=== PATIENT | female | born 1960 | race Caucasian/White ===

== ENCOUNTER → 2017-09-26 10:50 | Outpatient (POV) | payer MEDICARE, SELFPAY | PROVIDERS: Visit Provider Internal Medicine | DX: Z00.00 Encounter for general adult medical examination without abnormal findings (principal) ==

== ENCOUNTER 2017-10-19 01:12 | Observation (INO) | payer MEDICARE, SELFPAY ==
[2017-10-19] VITALS (16 sets, daily range): BP systolic 95–118; BP diastolic 50–74; PULSE 71–130; RESP 18–28; TEMP 36.4–37.9; O2SAT 2–95; BMI 14.4; BMI 14.8
--- NOTE | 2017-10-19 01:31 | XR_ITS ---
XR chest portable HISTORY: ITS.REASON: cough ORDERING PHYSICIAN: Tono He MD PATIENT AGE: 57 years COMPARISON: 12/26/2016 FINDINGS: COPD with chronic changes. Normal heart size. There are increased markings in the right lower lobe which may be due to underlying atelectasis or infiltrate. Upright PA and lateral suggested for further evaluation. No acute bony anomalies. IMPRESSION: COPD with some increased markings in the right lower lobe which may be due to vascular crowding, atelectasis, or developing infiltrate with superimposed chronic change.
[2017-10-19 02:33] LABS: Basophils % 0.5 % (0.1-2.0); Eosinophils % 0.4 % (0.1-12.0); Hematocrit 44.7 % (37.0-47.0); Lymphocytes # 1.1 K/mm3 (0.7-4.5); Lymphocytes % 14.5 K/mm3 (10-50); Mean Corpuscular HGB Conc 33.5 g/dL (31.8-35.4); Mean Corpuscular Hemoglobin 31.9 pg (27.0-31.2); Mean Platelet Volume 8.4 fl (7.4-10.4); Monocytes # 0.4 K/mm3 (0.1-1.0); Monocytes % 5.5 % (1.7-9.3); Neutrophils % 79.2 % (37.0-80.0); Platelet Count 146 K/mm3 (142-424); White Blood Count 7.5 K/mm3 (4.8-10.8)
[2017-10-19 02:43] LABS: Lactic Acid 1.2 mmol/L (0.4-2.0)
[2017-10-19 02:52] LABS: Alanine Aminotransferase 22 U/L (12-78); Albumin Level 3.9 gm/dL (3.4-5.0); Albumin/Globulin Ratio 1.1 (1.1-1.8); Alkaline Phosphatase 94 U/L (46-116); Anion Gap 13.3 mEq/L (5-15); Aspartate Amino Transferase 18 U/L (15-37); Bilirubin,Total 0.4 mg/dL (0.2-1.0); Blood Urea Nitrogen 5 mg/dL (7-18); CKMB Relative Index 1.3 U/L (0-4.0); Calcium 8.3 mg/dL (8.5-10.1); Carbon Dioxide 26 mmol/L (21.0-32.0); Chloride 102 mmol/L (98-107); Creatine Kinase 142 U/L (26-192); Creatine Kinase MB 1.8 mg/ml (0.0-3.6); Creatinine Clearance Estimated 61 mL/min (0-300); Creatinine,Serum 0.71 mg/dL (0.55-1.02); Estimated Glomerular Filt Rate 85 ml/min (>60); GFR (African American) 102 ML/MIN (>60); Globulin 3.6 gm/dl (1.3-3.2); Glucose 134 mg/dL (74-106); Potassium 3.3 mmoL/L (3.5-5.1); Sodium 138 mmol/L (136-145); Total Protein,Serum 7.5 gm/dL (6.4-8.2); Troponin I < 0.02 ng/ml (0.00-0.06)
--- NOTE | 2017-10-19 04:32 | HMH.EDSOB ---
ED Disposition Clinical Impression: Acute exacerbation of chronic obstructive airways disease, Bronchitis Disposition: Admitted as Observation Condition on Discharge: Good Instructions: DI for Chronic Obstructive Pulmonary Disease Additional Instructions: see pcp for follow up - Critical Care Critical Care Time: No Attestation: On 10/19/17, the high probability of a clinically significant, sudden or life threatening deterioration of the following system(s) required my full and direct attention, intervention and personal management. The time I documented below is in addition to time spent performing reported procedures but includes the following listed in this critical care notation. Medical Decision Making - Medical Records Medical records reviewed: Yes: I reviewed the patient's medical records. Vital Signs: 10/19/17 01:16 10/19/17 01:44 10/19/17 03:37 Temperature 99.5 F 99.3 F Temperature Source Oral Oral Pulse Rate 120 H Pulse Rate [Right Radial] 128 H 105 H Respiratory Rate 22 18 Blood Pressure [Right Arm] 116/72 102/67 Blood Pressure Mean [Right Arm] 86 78 Blood Pressure Source [Right Arm] Automatic Cuff Automatic Cuff Blood Pressure Position [Right Arm] Sitting Supine 02 Sat by Pulse Oximetry 90 L 94 L Oxygen Delivery Method Room Air Nasal Cannula Oxygen Flow Rate (LPM) 2 - Lab Data Lab results reviewed: Yes: I reviewed the patient's lab results. Lab Results 10/19/17 02:00: WBC 7.5, RBC 4.70, Hgb 15.0, Hct 44.7, MCV 95.0, MCH 31.9 H, MCHC 33.5, RDW 12.0, Plt Count 146, MPV 8.4, Neut % (Auto) 79.2, Lymph % (Auto) 14.5, [place] % (Auto) 5.5, Eos % (Auto) 0.4, Baso % (Auto) 0.5, Neut # (Auto) 6.0, Lymph # (Auto) 1.1, [place] # (Auto) 0.4, Eos # (Auto) 0.0, Baso # (Auto) 0.0 10/19/17 02:00: Sodium 138, Potassium 3.3 L, Chloride 102, Carbon Dioxide 26, Anion Gap 13.3, BUN 5 L, Creatinine 0.71, Estimated Creat Clear 61, Estimated GFR 85, Est GFR ( Amer) 102, Glucose 134 H, Calcium 8.3 L, Total Bilirubin 0.4, AST 18, ALT 22, Alkaline Phosphatase 94, Total Creatine Kinase 142, CK-MB (CK-2) 1.8, CK-MB (CK-2) Rel Index 1.3, Troponin I < 0.02, Total Protein 7.5, Albumin 3.9, Globulin 3.6 H, Albumin/Globulin Ratio 1.1 10/19/17 02:00: Lactic Acid 1.2 Result diagrams: 10/19/17 02:00 10/19/17 02:00 Orders (Tests/Meds): ED MEDICATIONS Discontinued Medications Generic Name Dose Route Start Last Admin Trade Name Freq PRN Reason Stop Dose Admin Albuterol/Ipratropium 3 ml 10/19/17 01:32 10/19/17 01:42 Duoneb 3ml Neb IH 10/19/17 01:33 3 ml ONCE ONE Administration ORDERS Category Date Time Status CXR --portable [XR chest portable] Stat Exams 10/19/17 01:31 Taken Blood Culture Stat Micro 10/19/17 02:00 Received Sputum Culture & Gram Stain Stat Micro 10/19/17 03:24 Received EKG Request [ECG Request by /Mehdi] Stat Y 10/19/17 01:30 Ordered - Radiology Data #1 Image(s): Chest Image Reviewed: Yes I reviewed the patient's radiology image Preliminary Findings: Abnormal (copd) - ECG Data Tracing #1 I reviewed this ECG and interpreted as documented below: Arrhythmias present: sinus tach Ischemic changes: non-specific ST-T wave changes Tracing #2 I reviewed this ECG and interpreted as documented below: Arrhythmias present: sinus tach Ischemic changes: non-specific ST-T wave changes - Ricky Inquiry Pt receiving controlled substance: No Resp/SOB HPI - General Chief Complaint: Shortness of Breath/Dyspnea Stated Complaint: difficulty breathing Time Seen by Provider: 10/19/17 01:30 Mode of Arrival: EMS Source of Information: Patient, Relative, Medical Record Limitations: No Limitations Description of Symptoms (Recalled from ER Triage Doc. by RN): Pt reports difficulty breathing since yesterday with a productive cough, and chills. - History of Present Illness sob with prod cough over the last few days MD Complaint: shortness of br
--- NOTE | 2017-10-19 04:35 | ED_ITS ---
ED Disposition Clinical Impression: Acute exacerbation of chronic obstructive airways disease, Bronchitis Disposition: Admitted as Observation Condition on Discharge: Good Instructions: DI for Chronic Obstructive Pulmonary Disease Additional Instructions: see pcp for follow up - Critical Care Critical Care Time: No Attestation: On 10/19/17, the high probability of a clinically significant, sudden or life threatening deterioration of the following system(s) required my full and direct attention, intervention and personal management. The time I documented below is in addition to time spent performing reported procedures but includes the following listed in this critical care notation. Medical Decision Making - Medical Records Medical records reviewed: Yes: I reviewed the patient's medical records. Vital Signs: 10/19/17 01:16 10/19/17 01:44 10/19/17 03:37 Temperature 99.5 F 99.3 F Temperature Source Oral Oral Pulse Rate 120 H Pulse Rate [Right Radial] 128 H 105 H Respiratory Rate 22 18 Blood Pressure [Right Arm] 116/72 102/67 Blood Pressure Mean [Right Arm] 86 78 Blood Pressure Source [Right Arm] Automatic Cuff Automatic Cuff Blood Pressure Position [Right Arm] Sitting Supine 02 Sat by Pulse Oximetry 90 L 94 L Oxygen Delivery Method Room Air Nasal Cannula Oxygen Flow Rate (LPM) 2 - Lab Data Lab results reviewed: Yes: I reviewed the patient's lab results. Lab Results 10/19/17 02:00: WBC 7.5, RBC 4.70, Hgb 15.0, Hct 44.7, MCV 95.0, MCH 31.9 H, MCHC 33.5, RDW 12.0, Plt Count 146, MPV 8.4, Neut % (Auto) 79.2, Lymph % (Auto) 14.5, [place] % (Auto) 5.5, Eos % (Auto) 0.4, Baso % (Auto) 0.5, Neut # (Auto) 6.0 , Lymph # (Auto) 1.1, [place] # (Auto) 0.4, Eos # (Auto) 0.0, Baso # (Auto) 0.0 10/19/17 02:00: Sodium 138, Potassium 3.3 L, Chloride 102, Carbon Dioxide 26, Anion Gap 13.3, BUN 5 L, Creatinine 0.71, Estimated Creat Clear 61, Estimated GFR 85, Est GFR ( Amer) 102, Glucose 134 H, Calcium 8.3 L, Total Bilirubin 0.4, AST 18, ALT 22, Alkaline Phosphatase 94, Total Creatine Kinase 142, CK-MB (CK-2) 1.8, CK-MB (CK-2) Rel Index 1.3, Troponin I < 0.02, Total Protein 7.5, Albumin 3.9, Globulin 3.6 H, Albumin/Globulin Ratio 1.1 10/19/17 02:00: Lactic Acid 1.2 Result diagrams: 10/19/17 02:00 10/19/17 02:00 Orders (Tests/Meds): ED MEDICATIONS Discontinued Medications Generic Name Dose Route Start Last Admin Trade Name Freq PRN Reason Stop Dose Admin Albuterol/Ipratropium 3 ml 10/19/17 01:32 10/19/17 01:42 Duoneb 3ml Neb IH 10/19/17 01:33 3 ml ONCE ONE Administration ORDERS Category Date Time Status CXR --portable [XR chest portable] Stat Exams 10/19/17 01:31 Taken Blood Culture Stat Micro 10/19/17 02:00 Received Sputum Culture & Gram Stain Stat Micro 10/19/17 03:24 Received EKG Request [ECG Request by /Mehdi] Stat Y 10/19/17 01:30 Ordered - Radiology Data #1 Image(s): Chest Image Reviewed: Yes I reviewed the patient's radiology image Preliminary Findings: Abnormal (copd) - ECG Data Tracing #1 I reviewed this ECG and interpreted as documented below: Arrhythmias present: sinus tach Ischemic changes: non-specific ST-T wave changes Tracing #2 I reviewed this ECG and interpreted as documented below: Arrhythmias presen
[2017-10-19 05:50] LABS: Magnesium 1.8 mg/dL (1.4-2.2)
--- NOTE | 2017-10-19 06:47 | CA_ITS ---
PROCEDURE: 2-D M-mode and color Doppler study INDICATIONS FOR THE TEST: Chest pain X COPDX Heart Murmur Tobacco SmokingEX Palpitations Fatigue Syncope Edema Hypertension Diabetes Mellitus Rheumatic Fever SOBXDOEXObesity Hyperlipidemia Family History HD Additional History LIMITED EXAM SECONDARY TO COPD PATIENT INFORMATION HEIGHT: 69 WEIGHT:100 GENDER: Female B/P:116/72 2-D/M-MODE INTERPRETATION: 2-D MEASUREMENTS OBSERVED VALUES IN CMS Right Ventricular Dimension (RVDd) 2.0 Interventricular Septum (Thickness)(IVsd) .6 Left Ventricular Internal Dimensions(LVIDd) 3.2 Left Ventricular Posterior Wall (Thickness)(LVPWd) .8 Aortic Root 3.1 Aortic Cusp Separation 1.5 Left Atrial Dimensions (LAD) 2.6 2D 1. Technically difficult study because of the patient's factor and poor acoustic windows. 2. The left atrium is normal size, left ventricle is normal size, there is no concentric left ventricular hypertrophy, visually estimated ejection fraction 55% with no obvious regional wall motion abnormality. 3. The right atrium and right ventricle are normal size and contractility. 3. The aortic, mitral and tricuspid valve are grossly normal. 4. The pulmonic valve is poorly visualized. 5. No significant pericardial effusion noted. DOPPLER INTERROGATION: Doppler interrogation of the aortic, mitral and tricuspid valvular presence of trace mitral and tricuspid regurgitation, tricuspid and jet velocity is insufficient for calculation of the right ventricular systolic pressure. Diastolic parameters are inconclusive. CONCLUSION: 1. Technically difficult study because of the patient's factor and poor acoustic windows 2. Left atrium is normal size, there is no concentric left ventricular hypertrophy, visually estimated ejection fraction 55% with no obvious regional wall motion abnormality, diastolic parameters are inconclusive. 3. Trace mitral and tricuspid regurgitation 4. No significant pericardial effusion noted.
--- NOTE | 2017-10-19 07:21 | PC.NURSE ---
Received report from Elly Zavala RN
--- NOTE | 2017-10-19 07:58 | P.CONPHA_ITS ---
[facility] Pharmacy VTE Monitoring - Patient Demographics Admission date: 10/19/17 Report Date: 10/19/17 Time: 07:57 Allergies/Adverse Reactions: Patient Allergies No Known Allergies Allergy (Verified 09/13/17 14:20) Height: 1.75 m Weight: 45.416 kg Patient Problems: Current Active Problems Acute exacerbation of chronic obstructive airways disease (Acute) Bronchitis (Acute) - VTE Risk Labs: VTE Related Lab Results Hgb 15.0 g/dL (12.2-16.2) 10/19/17 02:00 Hct 44.7 % (37.0-47.0) 10/19/17 02:00 Plt Count 146 K/mm3 (142-424) 10/19/17 02:00 BUN 5 mg/dL (7-18) L 10/19/17 02:00 Creatinine 0.71 mg/dL (0.55-1.02) 10/19/17 02:00 Estimated Creat Clear 61 mL/min (0-300) 10/19/17 02:00 VTE Score: 4 VTE Risk Level: Low Risk - Prophylaxis VTE Prophylaxis Ordered?: Yes Types of VTE Prophylaxis: TEDS Knee High Location of Applied Device: Bilateral Lower Extremeties - VTE Diagnosis Confirmed Treatment or plan recommended: Continue Current Treatment
[2017-10-19 08:20] LABS: Troponin I < 0.02 ng/ml (0.00-0.06)
--- NOTE | 2017-10-19 09:26 | HMH.HP ---
*Admission Date: 10/19/17 *Chief complaint: sob *History of present illness: 57 yr old female presents to ed with c/o of sob, weakness, dizziness and fatgue. Pt admitted for weakness and dizziness and low o2 sat at home 89%. [facility] History I have reviewed the patient's past medical history: Yes Medical History: Reports:: Chronic Obstructive Pulmonary Disease (COPD) Other Medical History: Reports: Arthritis, Glaucoma Laterality Cases: Bilateral: Total Knee Replacement Other Surgeries: Yes: Colonoscopy, , Hysterectomy-Total Amputation: No Fractures: No - *Social History Educational Level: Attended High School Smoking Status: Current every day smoker Tobacco Type: cigarettes # Packs/Day (cigarettes): 1 Alcohol Intake: never Substance Use Type: denies use Occupational Status: unemployed - Psychiatric History Expresses thoughts of harming self/others: None Suicide Plan Description: No Plan *Family Hx:: Hypertension, Heart Attack Review of Systems - Constitutional Reports body ache(s), Reports malaise - Eyes Denies pain - ENT Denies change in voice - *Cardiovascular Denies leg sores - *Respiratory Reports chest congestion, Reports cough, Reports shortness of breath - *Gastrointestinal Denies change in bowel habits - *Genitourinary Denies abnormal vaginal bleeding - *Musculoskeletal Denies stiffness - Integumentary/Breasts Denies rash - *Neurologic Denies seizure-like activity - Psychiatric Denies confusion - Endocrine Denies increased thirst - Hematologic/Lymphatic Denies enlarged lymph nodes - Allergic/Immunologic Denies tongue swelling Meds Home Medications Medication Instructions Recorded Confirmed Type alendronate 70 mg tablet 70 mg PO QWEEK 09/13/17 10/19/17 History gabapentin 800 mg tablet 800 mg PO QID tab 09/13/17 10/19/17 History hydrocodone 7.5 mg-acetaminophen 1 tab PO Q8H tab 09/13/17 10/19/17 History 325 mg tablet latanoprost 0.005 % eye drops 1 drp OPHTHALMIC QDAY 09/13/17 10/19/17 History multivit with min-folic 1 tab PO DAILY 09/13/17 10/19/17 History acid-lutein 400 mcg-250 mcg chewable tablet tizanidine 4 mg capsule 4 mg PO BID cap 09/13/17 10/19/17 History trazodone 300 mg tablet 300 mg PO QHS 09/13/17 10/19/17 History Escitalopram Oxalate 10 mg PO DAILY 10/19/17 10/19/17 History Omeprazole [Omeprazole 40mg 40 mg PO DAILY 10/19/17 10/19/17 History Capsule] clonazePAM [Klonopin] 0.5 mg PO BID 10/19/17 10/19/17 History Allergies Allergy/AdvReac Type Severity Reaction Status Date / Time No Known Allergies Allergy Verified 09/13/17 14:20 Exam Vital signs and Labs for Last 24 Hours: Temp Pulse Resp BP Pulse Ox 98.2 F 96 H 20 95/61 95 10/19/17 07:41 10/19/17 07:41 10/19/17 07:41 10/19/17 07:41 10/19/17 07:41 Laboratory Results - last 24 hr 10/19/17 07:30: Troponin I < 0.02 I & O for Last 24 hours: Intake & Output 10/16/17 10/17/17 10/18/17 10/19/17 11:59 11:59 11:59 11:59 Weight 100 lb 2 oz - Constitutional no acute distress - *Routine HEENT Exam Head: Present: normocephalic Eye: Present: PERRL ENT: Present: mucous membranes moist - *Routine Neck Exam Present: supple, full ROM - *Routine Respiratory Exam Present: decreased breath sounds, diminished air movement - *Routine Cardiovascular Exam Present: RRR - *Routine Abdominal Exam Present: soft, normoactive bowel sounds - *Routine Skin Exam Present: intact - *Routine Neurological Exam Present: alert, oriented X3, CN II-XII intact - Routine Psychiatric Exam Present: normal affect, normal thought process H&P: Result - Labs Labs: Cardiac Enzymes 10/19/17 Range/Units 07:30 Troponin I < 0.02 (0.00-0.06) ng/ml Assessment and Plan - Assessment and plan all Dx Assessment and Plan for all problems:: try to wean o2
--- NOTE | 2017-10-19 09:47 | PC.NURSE ---
Pt ambulated with this nurse down hallway (approx 200' total length). Upon return to room pt's O2 saturation was 95% on RA. Pt was able to recover her heart rate within 5 minutes. Pt with noted dyspnea requiring mouth breathing.
[2017-10-19 10:43] LABS: Adenovirus,PCR Not Detected (NotDetected); Bordetella Pertussis Not Detected (NotDetected); Chlamydophila Pneumoniae, PCR Not Detected (NotDetected); Coronavirus 229E Not Detected (NotDetected); Coronavirus NL63 Not Detected (NotDetected); Coronavirus OC43 Not Detected (NotDetected); Coronovirus HKU1,PCR Not Detected (NotDetected); Human Metapneumovirus Not Detected (NotDetected); Influenza A, PCR Not Detected (NotDetected); Influenza AH1, 2009 Not Detected (NotDetected); Influenza AH1, PCR Not Detected (NotDetected); Influenza AH3,PCR Not Detected (NotDetected); Influenza B, PCR Not Detected (NotDetected); Mycoplasma Pneumoniae, PCR Not Detected (NotDected); Parainfluenza 1, PCR Not Detected (NotDetected); Parainfluenza 2, PCR Not Detected (NotDetected); Parainfluenza 3, PCR Not Detected (NotDetected); Parainfluenza 4, PCR Not Detected (NotDetected); Respiratory Syncytial Virus Not Detected (NotDetected); Rhinovirus/Enterovirus Not Detected (NotDetected)
--- NOTE | 2017-10-19 15:34 | PC.NURSE ---
57 year old female admitted on 10/19/17 with diagnosis of acute exacerbation of COPD, bronchitis. Pt is A&Ox4. VSS. Afebrile. Heart rate reg. Lungs CTA with fine crackles noted LLL. O2 sats on RA range from 90 - 95% at rest this shift. Pt has ALICEA upon ambulation > 20'. Abd soft and nontender /c active BS x4 quads. Last reported BM 10/18/17. Pt denies difficulty /c urination. (L) AC IV infusing 0.9% NaCl @ 75ml/hr /s difficulty. No s/s of infiltration @ insertion site. Knee high ALVA hose in place to BLE. Pt reports that she has chronic pain and sees a pain management physician in [facility]. Will continue to monitor pt's status.
--- NOTE | 2017-10-19 16:25 | PC.NURSE ---
Pt resting quietly in bed with eyes closed. O2 saturation on RA is 87%. Applied O2 @ 1LPM via NC. O2 sat increased to 92% on O2 @ 1 LPM.
--- NOTE | 2017-10-19 18:58 | PC.NURSE ---
Report given to Allyssa Szymanski RN
[2017-10-20 00:15] VITALS: PULSE 65
[2017-10-20 04:00] VITALS: BP 97/59; PULSE 74; RESP 20; TEMP 36.6; O2SAT 95
--- NOTE | 2017-10-20 04:50 | PC.NURSE ---
AFTER NIGHT MEDS GIVEN, PT SLEPT WELL TIL 0430 THIS AM. PT SETTING UP IN BED THIS AM DRINKING COFFEE. OXYGEN ON AT 1L PER NC. RESPIRATIONS EVEN AND UNLABORED. NO COMPLAINTS OF SOB.
[2017-10-20 06:30] VITALS: PULSE 68; PULSE 71; O2SAT 88
[2017-10-20 07:51] VITALS: BP 92/47; PULSE 110; RESP 20; TEMP 36.7; O2SAT 94
--- NOTE | 2017-10-20 09:12 | PC.NURSE ---
PATIENT WILL NEED A ROLLATER , V/S A CANE DUE TO EXTREME COPD , WEAKNESS AND GAIT/ MOBILITY.
--- NOTE | 2017-10-20 09:23 | HMH.DCSUM ---
General - General Admission date: 10/19/17 Discharge date: 10/20/17 HPI HPI: 57 yr old female presents to ed with c/o of sob, weakness, dizziness and fatgue. Pt admitted for weakness and dizziness and low o2 sat at home 89%. Objective Vital signs: Temp Pulse Resp BP Pulse Ox 98.1 F 110 H 20 92/47 94 L 10/20/17 07:51 10/20/17 07:51 10/20/17 07:51 10/20/17 07:51 10/20/17 07:51 no acute distress, thin - *Routine HEENT Exam Head: Present: normocephalic Eye: Present: PERRL ENT: Present: mucous membranes moist - *Routine Neck Exam Present: supple, full ROM - *Routine Respiratory Exam Present: wheezes - *Routine Cardiovascular Exam Present: RRR - *Routine Abdominal Exam Present: soft, normoactive bowel sounds - *Routine Extremities Exam Present: full ROM - *Routine Skin Exam Present: intact - *Routine Neurological Exam Present: alert, oriented X3, CN II-XII intact - Routine Psychiatric Exam Present: normal affect, normal thought process Hospital Course Hospital Course: chest x ray: IMPRESSION: COPD with some increased markings in the right lower lobe which may be due to vascular crowding, atelectasis, or developing infiltrate with superimposed chronic change. echo:CONCLUSION: 1. Technically difficult study because of the patient's factor and poor acoustic windows 2. Left atrium is normal size, there is no concentric left ventricular hypertrophy, visually estimated ejection fraction 55% with no obvious regional wall motion abnormality, diastolic parameters are inconclusive. 3. Trace mitral and tricuspid regurgitation 4. No significant pericardial effusion noted Patient states she feels better today we will order outpatient region and add COPD preventative medicine Results Labs on day of discharge: Labs from last 24 hours 10/19/17 09:25 Chlamy pneumoniae PCR Not detected Adenovirus (PCR) Not detected B.parapertussis DNA PCR Not detected Coronavirus OC43 (PCR) Not detected Coronavirus HKU1 (PCR) Not detected Coronavirus 229E (PCR) Not detected Coronavirus NL63 (PCR) Not detected Human Metapneumovir PCR Not detected Influenza A (H1) PCR Not detected Influ A (H1N1/09) PCR Not detected Influenza A (H3) PCR Not detected Influenza Type A (PCR) Not detected Influenza Type B (PCR) Not detected M. pneumoniae (PCR) Not detected Parainfluenza 1 (PCR) Not detected Parainfluenza 2 (PCR) Not detected Parainfluenza 3 (PCR) Not detected Parainfluenza 4 (PCR) Not detected RSV (PCR) Not detected Entero/Rhino (PCR) Not detected Discharge Plan - Patient Discharge Instructions ACTIVITY: Continue current activity DIET: continue same diet Patient Instructions: Chronic Obstructive Pulmonary Disease, Chronic Obstructive Pulmonary Disease (Alternative Therapy) - Follow up Plan Follow up with: Tono He MD [Emergency Provider] - 1 week Disposition: Home, Self-Fpc Medications: Home Medications Medication Instructions Recorded Confirmed Type alendronate 70 mg tablet 70 mg PO QWEEK 09/13/17 10/19/17 History gabapentin 800 mg tablet 800 mg PO QID tab 09/13/17 10/19/17 History hydrocodone 7.5 mg-acetaminophen 1 tab PO Q8H tab 09/13/17 10/19/17 History 325 mg tablet latanoprost 0.005 % eye drops 1 drp OPHTHALMIC QDAY 09/13/17 10/19/17 History multivit with min-folic 1 tab PO DAILY 09/13/17 10/19/17 History acid-lutein 400 mcg-250 mcg chewable tablet tizanidine 4 mg capsule 4 mg PO BID cap 09/13/17 10/19/17 History trazodone 300 mg tablet 300 mg PO QHS 09/13/17 10/19/17 History Escitalopram Oxalate 10 mg PO DAILY 10/19/17 10/19/17 History Omeprazole [Omeprazole 40mg 40 mg PO DAILY 10/19/17 10/19/17 History Capsule] clonazePAM [Klonopin] 0.5 mg PO BID 10/19/17 10/19/17 History Prescriptions/Medication Reconciliation: New Azithromycin [Zithromax 250mg tab] 250 mg PO DIRECTED #6 tab Fluticasone/Marquita
--- NOTE | 2017-10-20 11:04 | SW/DCPLANNER ---
Order has been placed for patient to have rollator and home o2. Patient information was faxed to [facility] for DME and oxygen. I have spoke with Vale from [facility]...she has stated that patient has been set up on payment plans (due to having rolling walker in the past 5 years under [facility]), and patients home o2 will be delivered to [facility] at [facility]. I have also called and left a voice message for return phone call regarding setting up [employer] Whe[employer] for this patient. Patient will discharge home this afternoon.
== END 2017-10-20 11:45 | disposition home or self-care (01) ==
LOC: ER 04:43 → 2ND 05:29
PROVIDERS: Nurse Practitioner Family; Admitting Provider Emergency Medicine; Emergency Provider Emergency Medicine; Family Provider Emergency Medicine; Visit Provider Emergency Medicine
DX: J44.1 Chronic obstructive pulmonary disease with (acute) exacerbation (principal); R53.1 Weakness; R06.09 Other forms of dyspnea; J20.9 Acute bronchitis, unspecified; J44.0 Chronic obstructive pulmonary disease with (acute) lower respiratory infection
CPT/HCPCS: 71045; 80053; 82550; 82553; 83605; 83735; 84484; 85025; 87040; 87070; 87077; 87205; 87486; 87581; 87633; 87798; 93005; 93041; 93306; 94640; 94761; 96365; 96367; 96375; 99285; G0378; J0456

== ENCOUNTER → 2017-10-27 10:34 | Outpatient (CLI) | payer MEDICARE, SELFPAY ==
[2017-10-27 17:43] LABS: Amphetamine/Metha Screen,Urine Negative ng/mL (<1000); Barbiturates Screen,Urine Negative ng/mL (<200); Benzodiazepines Screen,Urine Negative ng/mL (200); Cannabinoid Screen,Urine Negative ng/mL (<50); Cocaine Screen,Urine Negative ng/g (<300); Methadone Screen,Urine Negative ng/mL (<300); Opiate Screen,Urine Positive ng/mL (<300); Phencyclidine Screen,Urine Negative ng/mL (<25)
== END ==
PROVIDERS: Visit Provider Emergency Medicine
DX: Z79.899 Other long term (current) drug therapy (principal)
CPT/HCPCS: 80305

== ENCOUNTER → 2017-11-24 10:09 | Outpatient (REF) | payer MEDICARE, SELFPAY ==
[2017-11-25 11:16] LABS: Amphetamine/Metha Screen,Urine Negative ng/mL (<1000); Barbiturates Screen,Urine Negative ng/mL (<200); Benzodiazepines Screen,Urine Negative ng/mL (200); Cannabinoid Screen,Urine Negative ng/mL (<50); Cocaine Screen,Urine Negative ng/g (<300); Methadone Screen,Urine Negative ng/mL (<300); Opiate Screen,Urine Positive ng/mL (<300); Phencyclidine Screen,Urine Negative ng/mL (<25)
== END ==
LOC: LAB 10:09
PROVIDERS: Visit Provider Emergency Medicine
DX: Z79.899 Other long term (current) drug therapy (principal)
CPT/HCPCS: 80305

== ENCOUNTER → 2017-12-11 11:01 | Outpatient (REF) | payer MEDICARE, SELFPAY ==
[2017-12-11 14:09] LABS: Amphetamine/Metha Screen,Urine Negative ng/mL (<1000); Barbiturates Screen,Urine Negative ng/mL (<200); Benzodiazepines Screen,Urine Negative ng/mL (200); Cannabinoid Screen,Urine Negative ng/mL (<50); Cocaine Screen,Urine Negative ng/g (<300); Methadone Screen,Urine Negative ng/mL (<300); Opiate Screen,Urine Negative ng/mL (<300); Phencyclidine Screen,Urine Negative ng/mL (<25)
== END ==
LOC: LAB 11:01
PROVIDERS: Visit Provider Emergency Medicine
DX: Z79.899 Other long term (current) drug therapy (principal)
CPT/HCPCS: 80305

== ENCOUNTER → 2017-12-27 09:07 | Outpatient (REF) | payer MEDICARE, SELFPAY ==
[2017-12-27 13:55] LABS: Amphetamine/Metha Screen,Urine Negative ng/mL (<1000); Barbiturates Screen,Urine Negative ng/mL (<200); Benzodiazepines Screen,Urine Negative ng/mL (200); Cannabinoid Screen,Urine Negative ng/mL (<50); Cocaine Screen,Urine Negative ng/g (<300); Methadone Screen,Urine Negative ng/mL (<300); Opiate Screen,Urine Negative ng/mL (<300); Phencyclidine Screen,Urine Negative ng/mL (<25)
== END ==
LOC: LAB 09:07
PROVIDERS: Visit Provider Emergency Medicine
DX: Z79.899 Other long term (current) drug therapy (principal)
CPT/HCPCS: 80305

== ENCOUNTER → 2018-01-11 12:56 | Outpatient (CLI) | payer MEDICARE, SELFPAY ==
--- NOTE | 2018-01-11 13:00 | XR_ITS ---
XR knee LT 2V HISTORY: Left knee pain ITS.REASON: S/P LT TKA having pain ORDERING PHYSICIAN: Shade Huynh MD PATIENT AGE: 57 years COMPARISON: 04/13/2017 FINDINGS: Status post total arthroplasty with good alignment of the prosthesis. No evidence of dislocation or prosthesis loosening. No lytic or blastic change. IMPRESSION: Status post total knee arthroplasty with no radiographic evidence of complication
--- NOTE | 2018-01-11 13:00 | XR_ITS ---
XR tibia fibula LT 2V CLINICAL INDICATION: ITS.REASON: Left knee pain ORDERING PHYSICIAN: Shade Huynh MD PATIENT AGE: 57 years COMPARISON: 04/13/2017 FINDINGS: There has been prior total knee arthroplasty. The tibial component of the prosthesis has an unremarkable appearance. The mid and distal aspect of the tibia and fibula are unremarkable. IMPRESSION: Status post total knee arthroplasty otherwise negative left tib-fib
== END ==
PROVIDERS: PCP Emergency Medicine; Visit Provider Orthopaedic Surgery
DX: Z96.652 Presence of left artificial knee joint (principal)
CPT/HCPCS: 73560; 73590

== ENCOUNTER → 2018-05-14 16:27 | Outpatient (CLI) | payer MEDICARE, SELFPAY | PROVIDERS: PCP Nurse Practitioner Family; Visit Provider Nurse Practitioner Family | DX: I95.9 Hypotension, unspecified (principal) | CPT/HCPCS: 93225; 93226 ==

== ENCOUNTER → 2018-05-16 16:11 | Outpatient (CLI) | payer MEDICARE, SELFPAY ==
[2018-05-16 16:31] LABS: Basophils % 0.3 % (0.1-2.0); Eosinophils # 0.1 K/mm3 (0.0-0.4); Eosinophils % 0.9 % (0.1-12.0); Hematocrit 42.6 % (37.0-47.0); Hemoglobin 13.9 g/dL (12.2-16.2); Lymphocytes # 2.9 K/mm3 (0.7-4.5); Lymphocytes % 25.9 K/mm3 (10-50); Mean Corpuscular HGB Conc 32.7 g/dL (31.8-35.4); Mean Corpuscular Hemoglobin 31.5 pg (27.0-31.2); Mean Corpuscular Volume 96.3 fl (81-99); Monocytes # 0.6 K/mm3 (0.1-1.0); Monocytes % 5.5 % (1.7-9.3); Neutrophils # 7.5 K/mm3 (1.8-7.8); Neutrophils % 67.3 % (37.0-80.0); Platelet Count 231 K/mm3 (142-424); Red Blood Count 4.42 M/mm3 (4.20-5.40); Red Cell Distribution Width 12.1 % (11.5-17.5); White Blood Count 11.1 K/mm3 (4.8-10.8)
[2018-05-16 18:59] LABS: Free T4 (Free Thyroxine) 0.95 ng/dl (0.76-1.46); Thyroid Stimulating Hormone 1.78 uIU/ml (0.358-3.740)
[2018-05-18 16:14] LABS: Peripheral Smear Review Scanned Result
[2018-05-21 05:19] LABS: Folate >20.0 ng/mL (>3.0); Vitamin B12 980 pg/mL (232-1245)
== END ==
PROVIDERS: PCP Physician Assistant; Visit Provider Nurse Practitioner Family
DX: R53.83 Other fatigue (principal)
CPT/HCPCS: 36415; 82607; 82652; 82746; 84439; 84443; 85025; 85060

== ENCOUNTER → 2018-06-05 06:48 | Outpatient (CLI) | payer MEDICARE, SELFPAY ==
--- NOTE | 2018-06-05 06:50 | NM_ITS ---
History and Indications: Chest pain, shortness of breath, tobacco use, family history. Procedure: Patient received a 0.4 mg of intravenous Lexiscan, resting heart rate was 77 bpm resting blood pressure 106/68, with Lexiscan maximum heart rate achieved was 112 bpm which is less than 85% of the maximum predicted heart rate and a blood pressure was 114/73. With Lexiscan patient chest pressure and shortness of breath requiring intravenous Aminophyllin to reverse symptoms. Electrocardiogram: Resting electrocardiogram showed sinus rhythm right ventricular conduction delay, with Lexiscan less than 1.[address] segment depression noted from the baseline EKG. The EKG portion of the Lexiscan Myoview is nondiagnostic. Cardiac stress and resting SPECT images: Cardiac stress and resting SPECT images were obtained using technetium 99 Myoview 31.6 mCi at stress and 9.9 mCi at rest. Gated SPECT further analysis of segmental wall motion and calculation of the ejection fraction also done. Cardiac stress and rest SPECT images show uniform myocardial activity without segmental perfusion abnormality, computer derived ejection fraction is 64% with no regional wall motion abnormality, right ventricle is normal size and contractility. Conclusion: 1. The EKG portion of the Lexiscan Myoview is nondiagnostic. 2. No scintigraphic evidence of reversible ischemia seen, computer derived ejection fraction is 64% with no regional wall motion abnormality, right ventricle is normal size and contractility. 3. Normal Lexiscan Myoview study
--- NOTE | 2018-06-05 06:50 | XR_ITS ---
XR chest 2V HISTORY: Chest pain, shortness of breath, smoker ITS.REASON: z ORDERING PHYSICIAN: Inocencio Vargas MD PATIENT AGE: 58 years COMPARISON: 10/19/2017 FINDINGS: Unremarkable cardiovascular structures. Hyperinflation with attenuation of the peripheral pulmonary vessels consistent with COPD. There is evidence of old granulomatous disease. Chronic changes are present in the apices. There is kyphosis of the lower thoracic spine. There is mild pectus deformity IMPRESSION: COPD, no change with no acute finding
--- NOTE | 2018-06-05 07:30 | HMH.ITSHM ---
FLUOXETINE FLUTICASONE ALENDRONATE GABAPENTIN HYDROCO OMEPRAZOLE AMOX/K TRAZODONE TIZANIDINE METHYLPRED CLONAZEPAM AZITHROMYCIN
--- NOTE | 2018-06-05 08:37 | CA_ITS ---
PROCEDURE: 2-D M-mode and color Doppler study INDICATIONS FOR THE TEST: Chest pain X COPDX Heart Murmur Tobacco SmokingX Palpitations Fatigue Syncope Edema Hypertension Diabetes Mellitus Rheumatic Fever SOBXDOEXObesity Hyperlipidemia Family History HD Additional History TDS COPD PATIENT INFORMATION HEIGHT: 69 WEIGHT:110 GENDER: Female B/P:106/66 2-D/M-MODE INTERPRETATION: 2-D MEASUREMENTS OBSERVED VALUES IN CMS Right Ventricular Dimension (RVDd) 2.0 Interventricular Septum (Thickness)(IVsd) .7 Left Ventricular Internal Dimensions(LVIDd) 4.3 Left Ventricular Posterior Wall (Thickness)(LVPWd) .6 Aortic Root 2.4 Aortic Cusp Separation 1.5 Left Atrial Dimensions (LAD) 3.0 2D 1. Left atrium is normal size, left ventricle is normal size, there is no concentric left ventricular hypertrophy, visually estimated ejection fraction of 55% with no regional wall motion abnormality. 2. The right atrium and right ventricle are normal size and contractility. 3. The aortic valve is minimally thickened and fibrosed. 4. The mitral and tricuspid valve are grossly normal. 5. The pulmonic valve is poorly visualized. 6. No significant pericardial effusion noted. DOPPLER INTERROGATION: Doppler interrogation of the aortic, mitral and tricuspid valvular presence of mild mitral and tricuspid regurgitation, tricuspid regurgitation jet velocity is inadequate for calculation of the right ventricular systolic pressure, diastolic parameters are within normal range. CONCLUSION: 1. Normal left ventricular size, preserved left ventricular systolic function, visually estimated ejection fraction of 55% with no regional wall motion abnormality, diastolic parameters are within normal range. 2. Mild mitral and tricuspid regurgitation 3. No significant pericardial effusion noted.
== END ==
PROVIDERS: Family Provider Emergency Medicine; PCP Physician Assistant; Visit Provider Internal Medicine
DX: R06.02 Shortness of breath (principal); R63.4 Abnormal weight loss; Z72.0 Tobacco use
CPT/HCPCS: 71046; 78452; 93017; 93306; A9502; J2785

== ENCOUNTER → 2018-06-06 11:04 | Outpatient (CLI) | payer MEDICARE, SELFPAY ==
[2018-06-06 14:10] LABS: Amphetamine/Metha Screen,Urine Negative ng/mL (<1000); Barbiturates Screen,Urine Negative ng/mL (<200); Benzodiazepines Screen,Urine Negative ng/mL (<200); Cannabinoid Screen,Urine Positive ng/mL (<50); Cocaine Screen,Urine Negative ng/mL (<300); Methadone Screen,Urine Negative ng/mL (<300); Opiate Screen,Urine Positive ng/mL (<300); Phencyclidine Screen,Urine Negative ng/mL (<25)
== END ==
PROVIDERS: Visit Provider Emergency Medicine
DX: Z79.899 Other long term (current) drug therapy (principal)
CPT/HCPCS: 80305

== ENCOUNTER → 2018-06-07 08:06 | Outpatient (REF) | payer MEDICARE, SELFPAY ==
[2018-06-07 10:28] LABS: Blood Urea Nitrogen 11 mg/dL (7-18); Estimated Glomerular Filt Rate 102 ml/min (>60); GFR (African American) 124 ML/MIN (>60)
[2018-06-13 16:24] LABS: Alprazolam Negative (Cutoff=100); Benzodiazepines Positive ng/mL (Cutoff=100); Clonazepam Positive (.); Flurazepam Negative (Cutoff=100); Lorazepam Negative (Cutoff=100); Midazolam Negative (Cutoff=100); Temazepam Negative (Cutoff=100); Triazolam Negative (Cutoff=100)
[2018-06-14 07:10] LABS: Clonazepam Confirm 727 ng/mL (Cutoff=100)
== END ==
LOC: LAB 08:06
PROVIDERS: Internal Medicine; Visit Provider Emergency Medicine
DX: Z79.899 Other long term (current) drug therapy (principal); I20.9 Angina pectoris, unspecified; J44.9 Chronic obstructive pulmonary disease, unspecified; K55.9 Vascular disorder of intestine, unspecified; R06.02 Shortness of breath; R53.83 Other fatigue; R63.0 Anorexia; R63.4 Abnormal weight loss; Z72.0 Tobacco use
CPT/HCPCS: 36415; 80346; 82565; 84520

== ENCOUNTER → 2018-06-07 09:50 | Outpatient (CLI) | payer MEDICARE, SELFPAY ==
--- NOTE | 2018-06-07 10:15 | US_ITS ---
US abd. aorta screening HISTORY: Screening for aortic aneurysm ITS.REASON: z ORDERING PHYSICIAN: Inocencio Vargas MD PATIENT AGE: 58 years Comparison: None FINDINGS: Atheromatous changes involve the abdominal aorta. No evidence of abdominal aortic aneurysm. Proximal common iliacs are unremarkable. Plaque is present in the mid to distal abdominal aorta. There is on minimal ectasia of the mid abdominal aorta. Maximum AP dimension of the abdominal aorta is 1.7 cm. IMPRESSION: Atheromatous changes of the aorta, no evidence of abdominal aortic aneurysm
--- NOTE | 2018-06-07 10:15 | CT_ITS ---
CT angio abdomen CLINICAL INDICATION: Mesenteric ischemia, abdominal pain ITS.REASON: z ORDERING PHYSICIAN: Inocencio Vargas MD PATIENT AGE: 58 years COMPARISON: None TECHNIQUE: Axial images obtained with sagittal and coronal reformats. All CT scans at the facility use one or more dose reduction, viz: automated exposure control, ma/kV adjustment per patient size (including targeted exams where dose is matched to indication, i.e. head), or iterative reconstruction technique. PROCEDURE: Oral Contrast: None IV Contrast: 100 mL [id number]. FINDINGS: Angiographic findings: There is no evidence of aortic aneurysm or dissection. Mild atheromatous changes involving the distal abdominal aorta and proximal iliac vessels. There is minimal ectasia of the infrarenal abdominal aorta at 1.8 cm There is approximate 40-50% stenosis involving the ostium of the celiac artery. The superior mesenteric artery has an unremarkable appearance. The ANDREA is patent. There is high grade stenosis at the ostium of the ANDREA. The renal arteries have an unremarkable appearance. Nonvascular findings: The liver, spleen, adrenal glands, pancreas, and kidneys have an unremarkable appearance. No intestinal obstruction or free air. No obvious abdominal or pelvic mass or adenopathy. No acute bony findings. IMPRESSION: 1. 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 2. High-grade stenosis of the ostium of the ANDREA
== END ==
PROVIDERS: Family Provider Emergency Medicine; PCP Physician Assistant; Visit Provider Internal Medicine
DX: I20.9 Angina pectoris, unspecified (principal); K55.9 Vascular disorder of intestine, unspecified; R06.02 Shortness of breath; R53.83 Other fatigue; R63.0 Anorexia; R63.4 Abnormal weight loss; Z72.0 Tobacco use
CPT/HCPCS: 36415; 74175; 76705; 80346; 82565; 84520; Q9967

== ENCOUNTER → 2018-09-07 13:30 | Outpatient (CLI) | payer MEDICARE, SELFPAY ==
[2018-09-07 18:10] LABS: Barbiturates Screen,Urine Negative ng/mL (<200); Benzodiazepines Screen,Urine Negative ng/mL (<200); Cannabinoid Screen,Urine Negative ng/mL (<50); Cocaine Screen,Urine Negative ng/mL (<300); Methadone Screen,Urine Negative ng/mL (<300); Opiate Screen,Urine Positive ng/mL (<300); Phencyclidine Screen,Urine Negative ng/mL (<25)
[2018-09-07 19:03] LABS: Amphetamine/Metha Screen,Urine Negative ng/mL (<1000)
[2018-09-15 18:10] LABS: Alprazolam Negative (Cutoff=100); Benzodiazepines Positive ng/mL (Cutoff=100); Clonazepam Positive (.); Flurazepam Negative (Cutoff=100); Lorazepam Negative (Cutoff=100); Midazolam Negative (Cutoff=100); Temazepam Negative (Cutoff=100); Triazolam Negative (Cutoff=100)
[2018-09-15 22:47] LABS: Clonazepam Confirm 104 ng/mL (Cutoff=100)
== END ==
PROVIDERS: Visit Provider Emergency Medicine
DX: Z79.899 Other long term (current) drug therapy (principal)
CPT/HCPCS: 80305; 80346

== ENCOUNTER → 2018-12-04 16:32 | Outpatient (CLI) | payer MEDICARE, SELFPAY ==
[2018-12-04 19:14] LABS: Amphetamine/Metha Screen,Urine Negative ng/mL (<1000); Barbiturates Screen,Urine Negative ng/mL (<200); Benzodiazepines Screen,Urine Negative ng/mL (<200); Cannabinoid Screen,Urine Negative ng/mL (<50); Cocaine Screen,Urine Negative ng/mL (<300); Methadone Screen,Urine Negative ng/mL (<300); Opiate Screen,Urine Positive ng/mL (<300); Phencyclidine Screen,Urine Negative ng/mL (<25)
== END ==
PROVIDERS: Visit Provider Emergency Medicine
DX: Z79.899 Other long term (current) drug therapy (principal)
CPT/HCPCS: 80305

== ENCOUNTER → 2018-12-06 10:53 | Outpatient (CLI) | payer MEDICARE, SELFPAY ==
--- NOTE | 2018-12-06 11:16 | XR_ITS ---
XR chest AP HISTORY: COPD. Smoker. Hypertension ITS.REASON: HTN, HX UT ORDERING PHYSICIAN: Tono He MD PATIENT AGE: 58 years Technique: AP portable upright chest COMPARISON: 10/29/2017. FINDINGS: Prominent COPD/emphysematous changes with prominent hyperexpansion Chronic changes bilaterally. We again see mild apical pleural] normal scarring similar to previous study. Slightly more evident on right than left. There is slight additional density at the right base. Slightly triangular density right base but does not obscure the right hemidiaphragm and measures up to 2.2 cm height and wide. Rather abrupt medial margin.Possibly related to overlapping artifact?... There have been been some areas seen at the anterior right lung base on prior CT and chest films previously. Conceivably Current Technique exaggerated or accentuated such due to to overlapping breast and positioning.. . Left lung clear unremarkable. Heart mildly enlarged. Calcified hilar and mediastinal nodes reflecting old granulomatous t disease.. Normal pulmonary vascularity. IMPRESSION Emphysematous changes. Chronic changes Prominent hyperexpansion with Advanced COPD appearance Cardiomegaly suggested particularly for this body habitus no vascular congestion. Triangular density at the right lung base measuring up to 2.2 cm. Nonspecific. Could be related to scarring which is accentuated on today's CXR. Suggest at least. 2 view chest follow-up. To see if this area persists However Low threshold for CT chest or possibly a follow-up screening CT chest would be encouraged in either case
[2018-12-06 12:03] LABS: Basophils # 0.1 K/mm3 (0-0.2); Basophils % 0.5 % (0.1-2.0); Eosinophils # 0.1 K/mm3 (0.0-0.4); Hematocrit 39.8 % (37.0-47.0); Hemoglobin 13.2 g/dL (12.2-16.2); Lymphocytes # 2.6 K/mm3 (0.7-4.5); Mean Corpuscular Hemoglobin 31.1 pg (27.0-31.2); Mean Platelet Volume 7.3 fl (7.4-10.4); Monocytes # 0.5 K/mm3 (0.1-1.0); Monocytes % 5.3 % (1.7-9.3); Neutrophils # 5.8 K/mm3 (1.8-7.8); Neutrophils % 64.2 % (37.0-80.0); Platelet Count 335 K/mm3 (142-424); Red Blood Count 4.23 M/mm3 (4.20-5.40); Red Cell Distribution Width 12.5 % (11.5-17.5); White Blood Count 9.1 K/mm3 (4.8-10.8)
[2018-12-06 12:49] LABS: Erythrocyte Sedimentation Rate 58 mm/hr (0-30)
[2018-12-06 14:45] LABS: Alanine Aminotransferase 17 U/L (12-78); Albumin Level 3.5 gm/dL (3.4-5.0); Albumin/Globulin Ratio 0.9 (1.1-1.8); Alkaline Phosphatase 93 U/L (46-116); Anion Gap 15.9 mEq/L (5-15); Bilirubin,Total 0.6 mg/dL (0.2-1.0); Blood Urea Nitrogen 8 mg/dL (7-18); Calcium 8.9 mg/dL (8.5-10.1); Carbon Dioxide 27 mmol/L (21.0-32.0); Chloride 100 mmol/L (98-107); Creatinine,Serum 0.54 mg/dL (0.55-1.02); Estimated Glomerular Filt Rate 116 ml/min (>60); GFR (African American) 140 ML/MIN (>60); Globulin 3.9 gm/dl (1.3-3.2); Glucose 90 mg/dL (74-106); Lipase 107 u/L (73-393); Sodium 138 mmol/L (136-145); T4 (Thyroxine) 10.5 ug/dl (4.7-13.3); Total Protein,Serum 7.4 gm/dL (6.4-8.2)
[2018-12-06 14:47] LABS: Aspartate Amino Transferase 19 U/L (15-37); Potassium 4.9 mmoL/L (3.5-5.1)
[2018-12-07 09:06] LABS: Cancer Antigen (CA) 125 14.4 U/mL (0.0-38.1)
== END ==
PROVIDERS: PCP Emergency Medicine; Visit Provider Emergency Medicine
DX: R53.83 Other fatigue (principal); Z78.9 Other specified health status; Z79.899 Other long term (current) drug therapy; F32.9 Major depressive disorder, single episode, unspecified; F41.9 Anxiety disorder, unspecified
CPT/HCPCS: 36415; 71045; 80053; 83690; 84436; 84443; 85025; 85651; 86316

== ENCOUNTER → 2018-12-24 14:25 | Outpatient (CLI) | payer MEDICARE, SELFPAY ==
--- NOTE | 2018-12-24 14:29 | CT_ITS ---
CT chest wo con HISTORY: Follow-up abnormal chest x-ray, shortness of air, cough ITS.REASON: weight loss, fatigue ORDERING PHYSICIAN: Tono He MD PATIENT AGE: 58 years COMPARISON: 12/06/2018, 01/09/2017 Technique: Axial images obtained. Sagittal, and coronal reformatted images are also generated and reviewed. All CT scans at the facility use one or more dose reduction, viz: automated exposure control, ma/kV adjustment per patient size (including targeted exams where dose is matched to indication, i.e. head), or iterative reconstruction technique. FINDINGS: There are scattered small nodes within the mediastinum. Calcified mediastinal and hilar lymph nodes are present. Coronary artery calcifications are noted. There is pericardial thickening inferiorly. Hyperinflation with attenuation of the peripheral pulmonary vessels consistent with COPD. There is biapical fibronodular changes as before. New area of nodularity is present in the right upper lobe posteriorly and medially measuring 18 mm with some central lucency which may be due to some central cavitation. Increase in parenchymal opacity is present in the right upper lobe posteriorly and laterally along the major fissure as well as the right middle lobe laterally parallel to the major fissure. Parenchymal opacification is present in the right middle lobe inferiorly which is developed in the interval and is felt to be related to the most recent mention radiographic abnormality. A new parenchymal opacity is present within the lingula medially at 2 cm. Small nodular opacities are present in the lingula laterally which developed in the interval with a tree-in-bud pattern. Fibrotic changes are present in the lingula inferiorly. No central obstructing lesion is evident. Upper abdominal images show dense calcification versus a stent within the celiac artery. Degenerative changes are present in the thoracic spine. IMPRESSION: There has been interval development and progression of multiple parenchymal opacities in both lungs as described above. Bronchiolitis obliterans with organizing pneumonia, progressive pulmonary fibrotic changes, or atypical pneumonia considered. There is COPD. Mild diffuse bronchial thickening is present. One cannot exclude the possibility of neoplasm at any of these sites. Therefore, follow-up is recommended. Suggest 3 month follow-up initially to confirm short-term stability. Alternatively, PET CT may be of further value. Pulmonology consult may be of further value as well. There is infiltrate within the lingula with tree-in-bud pattern consistent with an area of pneumonia.
== END ==
PROVIDERS: PCP Emergency Medicine; Visit Provider Emergency Medicine
DX: R53.83 Other fatigue (principal); R63.4 Abnormal weight loss
CPT/HCPCS: 71250

== ENCOUNTER → 2019-01-09 11:21 | Outpatient (CLI) | payer MEDICARE, SELFPAY ==
[2019-01-09 11:24] LABS: Adenovirus F 40/41, stool Not Detected (NotDetected); Astrovirus Not Detected (NotDetected); Campylobacter Not Detected (NotDetected); Clostridium Difficile A/B, PCR Not Detected (NotDetected); Cryptosporidium Not Detected (NotDetected); Cyclospora Cayetanesis Not Detected (NotDetected); Entamoeba histolytica Not Detected (NotDetected); Enteroaggregative E coli Not Detected (NotDetected); Enteropathogenic E coli Not Detected (NotDetected); Enterotoxigenic E coli Not Detected (NotDetected); Giardia lamblia Not Detected (NotDetected); Norovirus Not Detected (NotDetected); Plesimonas Shigalloides, PCR Not Detected (NotDetected); Rotavirus A Not Detected (NotDetected); Salmonella, PCR Not Detected (NotDetected); Sapovirus Not Detected (NotDetected); Shiga-like toxin E coli Not Detected (NotDetected); Shigella Enterovasive E coli Not Detected (NotDetected); Vibrio Cholerae Not Detected (NotDetected); Vibrio, PCR Not Detected (NotDetected); Yersinia Entercolitica, PCR Not Detected (NotDetected)
== END ==
PROVIDERS: Visit Provider Emergency Medicine
DX: R19.7 Diarrhea, unspecified (principal)
CPT/HCPCS: 87506

== ENCOUNTER → 2019-01-22 10:52 | Outpatient (CLI) | payer MEDICARE, SELFPAY ==
--- NOTE | 2019-01-22 10:53 | MM_ITS ---
MM Dig screening mamm BI w/CAD ORDERING PHYSICIAN : Tono He MD PATIENT AGE: 58 years GENDER: Female COMPARISON: Only a single previous outside mammogram comparison from June 2014. I feel [facility]. INDICATION: Routine: screening patient does taking female hormones. No new complaints. Family history. 2 Sister with breast cancer TECHNIQUE: Standard CC and MLO images were obtained. R2 CAD reviewed. FINDINGS: Moderately dense mildly heterogeneous breast bilaterally mammography somewhat decreased sensitivity in breast denser character. No dominant or suspicious mass nor suspicious calcifications. Overall architecture is similar No one area greater concern than another. RIGHT BREAST: There is slight increased density at the central right breast retroareolar region. This may be merely due to overlapping shadows along with mild accentuated fibroglandular elements from the exogenous hormones. However would suggest patient return for spot views and ultrasound right breast. Spot view should include CC and MLO view along with a full 90 degree view right breast. With Ultrasound thereafter LEFT BREAST:No new areas of significant concern the exogenous hormones do vary slightly accentuated some of the background fibroglandular elements. Left breast overall with no significant new findings. . follow-up in one year on the left IMPRESSION: Right breast. Slight increased density at the central right breast. Right breast Warrant spot views and ultrasound to further evaluate. However it suspect it may merely reflect summation shadow along with the accentuated fibroglandular elements from exogenous hormones. Left breast no significant new findings. Follow-up in one year. BI-RADS Category: 0 Need Additional Imaging Evaluation RECOMMENDED FOLLOW-UP: IMM - IMMEDIATE FOLLOW-UP RECOMMENDED Right breast Spot views and ultrasound (A letter has been sent to the patient regarding results of the study.)
== END ==
PROVIDERS: PCP Emergency Medicine; Visit Provider Emergency Medicine
DX: Z12.31 Encounter for screening mammogram for malignant neoplasm of breast (principal)
CPT/HCPCS: 77067

== ENCOUNTER → 2019-02-18 13:44 | Outpatient (CLI) | payer MEDICARE, SELFPAY ==
--- NOTE | 2019-02-18 13:45 | US_ITS ---
MM Dig mamm DX unilat RT CAD, US breast RT complete INDICATION: Follow-up asymmetric density ORDERING PHYSICIAN: Tono He MD PATIENT AGE: 59 years COMPARISON: 01/22/2019, 07/04/2014 TECHNIQUE: Spot views of the right breast along with right breast ultrasound FINDINGS: There is very dense breast tissue decreases the sensitivity for mammography. The asymmetric density in the central aspect of the right breast does appear to compress out as fibroglandular tissue. No discrete mass or malignant appearing microcalcification. Right breast ultrasound completely with axilla no sonographic anomalies apparent. There are small nodes in the axilla. IMPRESSION: Asymmetric density is felt to be related to overlapping fibroglandular tissue. Recommend 6 month follow-up in this patient was very dense breast tissue also suggest correlation with physical exam BI-RADS Category: 3 Probably Benign Finding Short Term Follow-up RECOMMENDED FOLLOW-UP: 6M - 6 MONTH FOLLOW-UP (A letter has been sent to the patient regarding results of the study.)
== END ==
PROVIDERS: PCP Emergency Medicine; Visit Provider Emergency Medicine
DX: R92.8 Other abnormal and inconclusive findings on diagnostic imaging of breast (principal)
CPT/HCPCS: 76641; 77065

== ENCOUNTER → 2019-03-04 13:49 | Outpatient (CLI) | payer MEDICARE, SELFPAY ==
[2019-03-04 14:36] LABS: Amphetamine/Metha Screen,Urine Negative ng/mL (<1000); Barbiturates Screen,Urine Negative ng/mL (<200); Benzodiazepines Screen,Urine Negative ng/mL (<200); Cannabinoid Screen,Urine Negative ng/mL (<50); Cocaine Screen,Urine Negative ng/mL (<300); Methadone Screen,Urine Negative ng/mL (<300); Opiate Screen,Urine Positive ng/mL (<300); Phencyclidine Screen,Urine Negative ng/mL (<25)
== END ==
PROVIDERS: Visit Provider Emergency Medicine
DX: Z79.899 Other long term (current) drug therapy (principal)
CPT/HCPCS: 80305

== ENCOUNTER → 2019-05-15 13:35 | Outpatient (CLI) | payer MEDICARE, SELFPAY ==
--- NOTE | 2019-05-15 13:36 | CT_ITS ---
PROCEDURE: CT CHEST WO CON CLINICAL INDICATION: 3 mth f/u Follow-up abnormal chest CT, COPD, COMPARISON: CHESTWO CT chest wo con from 12/24/2018 TECHNIQUE: Axial images obtained with sagittal and coronal reformats. All CT scans at the facility use one or more dose reduction, viz: automated exposure control, ma/kV adjustment per patient size (including targeted exams where dose is matched to indication, i.e. head), or iterative reconstruction technique. FINDINGS: No mediastinal or hilar mass. There is diffuse calcification of mediastinal and left hilar lymph nodes. There are coronary artery calcifications. There diffuse COPD. Diffuse bilateral pulmonary parenchymal opacities are once again noted and do not appear significantly changed. There is 1 spiculated nodule in the right upper lobe laterally which measures 1.3 cm. This is not significantly changed. Increasing parenchymal opacity is present within the right middle lobe anteriorly which has developed since the previous exam with persistent parenchymal opacification in the right middle lobe inferiorly which has slightly improved. The tree-in-bud consolidation in the right middle lobe has shown improvement. Previously noted consolidation in the lingula medially and in the inferior aspect of the lingula has shown improvement. There is diffuse hyperinflation with attenuation of the peripheral pulmonary vessels consistent with COPD. There are degenerative changes in the thoracic spine. There is mild thickening of the pericardium. A vascular stent is present in the celiac artery. IMPRESSION: 1. COPD with scattered areas of scarring. Patchy areas of infiltrate in the right middle lobe and lingula have improved. 2. There remain scattered parenchymal opacities which for the most part are unchanged and may be due to areas of scarring. The most suspicious area is in the right upper lobe however, this does does not appear to be significantly changed and has a flat like appearance on the sagittal images. Long-term follow-up will be needed to assure this is not neoplasm. Alternatively, PET-CT may be of further value. PET/CT suggested if feasible. If that is not performed then, would recommend a six-month CT follow-up Dictated by: Forrest Hayward MD 05/17/2019 05:48 Electronically signed by Forrest Hayward MD in [place] 05/17/2019 05:48
[2019-05-15 14:33] LABS: MANUAL DIFFERENTIAL MANUAL DIFFERENTIAL (MANUAL DIFF)
[2019-05-15 14:59] LABS: Basophils % 0.4 % (0.1-2.0); Eosinophils # 0.1 K/mm3 (0.0-0.4); Eosinophils % 1.1 % (0.1-12.0); Hematocrit 40.6 % (37.0-47.0); Hemoglobin 13.2 g/dL (12.2-16.2); Lymphocytes # 2.4 K/mm3 (0.7-4.5); Lymphocytes % 36.6 % (10-50); Mean Corpuscular HGB Conc 32.4 g/dL (31.8-35.4); Mean Corpuscular Hemoglobin 30.4 pg (27.0-31.2); Mean Corpuscular Volume 93.8 fl (81-99); Monocytes # 0.4 K/mm3 (0.1-1.0); Monocytes % 6.3 % (1.7-9.3); Neutrophils # 3.6 K/mm3 (1.8-7.8); Neutrophils % 55.6 % (37.0-80.0); Platelet Count 239 K/mm3 (142-424); Red Blood Count 4.33 M/mm3 (4.20-5.40); Red Cell Distribution Width 12.7 % (11.5-17.5); White Blood Count 6.5 K/mm3 (4.8-10.8)
[2019-05-15 16:03] LABS: Alanine Aminotransferase 15 U/L (12-78); Albumin Level 3.6 gm/dL (3.4-5.0); Albumin/Globulin Ratio 1.2 (1.1-1.8); Alkaline Phosphatase 91 U/L (46-116); Anion Gap 10.4 mEq/L (5-15); Aspartate Amino Transferase 16 U/L (15-37); Bilirubin,Total 0.3 mg/dL (0.2-1.0); Blood Urea Nitrogen 5 mg/dL (7-18); Calcium 8.8 mg/dL (8.5-10.1); Carbon Dioxide 30 mmol/L (21.0-32.0); Chloride 102 mmol/L (98-107); Creatinine,Serum 0.63 mg/dL (0.55-1.02); Estimated Glomerular Filt Rate 96 ml/min (>60); GFR (African American) 117 ML/MIN (>60); Glucose 84 mg/dL (74-106); Potassium 4.4 mmoL/L (3.5-5.1); Sodium 138 mmol/L (136-145); Thyroid Stimulating Hormone 0.77 uIU/ml (0.358-3.740); Total Protein,Serum 6.6 gm/dL (6.4-8.2)
[2019-05-15 16:49] LABS: Lymphocytes % 34 % (10-50); Monocytes % 5 % (2-9); Neutrophils % 61 % (42-76); Platelet Estimate Normal; RBC Morphology Normal; Total Cells Counted 100
[2019-05-17 11:12] LABS: Hep A Ab, IgM Negative (Negative); Hepatitis B Core Antibody IgM Negative (Negative); Hepatitis B Surface Antigen Negative (Negative)
[2019-05-17 17:11] LABS: Hepatitis C Antibody <0.1 s/co ratio (0.0-0.9)
== END ==
PROVIDERS: PCP Emergency Medicine; Visit Provider Emergency Medicine
DX: J84.89 Other specified interstitial pulmonary diseases (principal); R93.89 Abnormal findings on diagnostic imaging of other specified body structures; E03.9 Hypothyroidism, unspecified; R53.83 Other fatigue; Z20.5 Contact with and (suspected) exposure to viral hepatitis; R68.81 Early satiety
CPT/HCPCS: 36415; 71250; 80053; 80074; 84443; 85007; 85014; 85018; 85048; 85049

== ENCOUNTER → 2019-05-21 10:32 | Outpatient (POV) | payer MEDICARE, SELFPAY | PROVIDERS: Visit Provider Internal Medicine | DX: Z00.00 Encounter for general adult medical examination without abnormal findings (principal) ==

== ENCOUNTER → 2019-07-01 15:47 | Outpatient (POV) | payer MEDICARE, SELFPAY | PROVIDERS: PCP Emergency Medicine; Visit Provider Nurse Practitioner Family | DX: Z00.00 Encounter for general adult medical examination without abnormal findings (principal) ==

== ENCOUNTER → 2019-07-26 06:23 | Outpatient (CLI) | payer MEDICARE, SELFPAY ==
--- NOTE | 2019-07-26 06:24 | CA_ITS ---
APPROVED REPORT EXAM: Comprehensive 2D, Doppler, and color-flow Echocardiogram Vinyl Flooring Installer: Shabana Gracia CRT Ht: 6 ft 9 in Wt: 112lbs BSA: 1.81 BP: 125/86 mmHg Indications: cp,cad, abn ekg, sx clearance 2D Dimensions LVOT 1.66 cm (M/F) 1.5-2.5 M-Mode Dimensions RVDd 1.43 cm (0.9-2.6) LVDd 3.29 cm (3.5-5.7) LVDs 2.16 cm (3.5-5.7) IVSd 0.94 cm (0.6-1.1) PWd 0.87 cm (0.6-1.1) EF (Teich) 64.60% FS 34.30% EDV (Teich) 43.80 mL ESV (Teich) 15.50 mL LV Diastology E/A Ratio 0.81 Mitral Valve MV A Velocity 60.00 (40-130 cm/s) Left Ventricle Left atrium is mildly enlarged, left ventricular hypertrophy, visually estimated ejection fraction 55% with no regional wall motion abnormality, grade 1 diastolic dysfunction seen without tissue Doppler evidence of raise left atrial pressure. Right Ventricle Right atrium and right ventricular normal size and contractility. Aortic Valve Aortic valve is minimally thickened and fibrosed. There is no aortic stenosis aortic insufficiency. Mitral Valve Mitral valve is grossly normal, there is no mitral stenosis, there is mild mitral regurgitation. Tricuspid Valve Tricuspid valve is grossly normal, there is mild tricuspid regurgitation, tricuspid regurgitation jet velocity is inadequate for calculation of the right ventricular systolic pressure. Pulmonic Valve Pulmonic valve is poorly visualized. Great Vessels Aortic root is normal size. Pericardium No significant pericardial effusion noted. Conclusion 1. Mildly enlarged left atrium, normal left ventricular size, mild concentric left ventricular hypertrophy, visually estimated ejection fraction 55% with no regional wall motion abnormality, grade 1 diastolic dysfunction seen without tissue Doppler evidence of raise left atrial pressure. 2. Mild mitral and tricuspid regurgitation. 3. No significant pericardial effusion noted. Electronically signed by : Salvador Shultz, 07/26/2019 15:16:57
--- NOTE | 2019-07-26 06:32 | NM_ITS ---
APPROVED REPORT Exam: Nuclear Stress Test Indication: chest pain, short of breath, fatigue Patient Location: Outpatient Stress Tech: Katt OwenBoom [place] Tech:GO Briggs RT(R)(N) Ht: 5 ft 9 in Wt: 113 lbs Bra Size: 34 a HR: 64 bpm BP: 130/85 mmHg BSA: 1.62 m2 BMI: 16.6 History: chest pain, short of breath, fatigue Procedure: Patient received a 0.4 mg of intravenous Lexiscan, resting heart rate 64 bpm, resting blood pressure 130/85 mmHg, with Lexiscan maximum heart rate achived was 100 bpm which is Less than 85 % of the maximum predicted heart rate and blood pressure was 150/95 mmHg. With Lexiscan, patient denied any complaint of chest pain. Electrocardiogram Resting electro cardiogram showed sinus rhythm, with Lexiscan there is less than 1.[address] segment depression noted from the baseline EKG. The EKG portion of the Lexiscan Myoview is nondiagnostic. Cardiac Stress and Resting SPECT Images: Cardiac Stress and Resting SPECT images were obtained using technetium 99m Myoview 32.3 mCi stress and 10.03 mCi at rest. Gated SPECT with analysis of segmental wall motion and calculation of ejection fraction also done. Cardiac stress and resting SPECT images show mild fixed defect in the anterior wall with normal contractility to SPECT is likely secondary to soft tissue attenuation, no reversible ischemia seen. Computer derived ejection fraction is 64% with no regional wall motion abnormality, right ventricle is normal size and contractility. Conclusion: 1. The EKG portion of the Lexiscan Myoview is nondiagnostic. 2. No scintigraphic evidence of reversible ischemia seen, a mild fixed defect in the anterior wall is likely secondary to soft tissue attenuation. Computer derived ejection fraction is 64% with no regional wall motion abnormality, right ventricle is normal size and contractility. 3. Likely normal Lexiscan Myoview study. Electronically signed by : Salvador Shultz, 07/26/2019 14:54:01
--- NOTE | 2019-07-26 06:32 | CA_ITS ---
APPROVED REPORT Exam: Pharmacologic Technologist: ludmila carlos, Ht: 5 ft 9 in Wt: 113 lbs BSA: 1.62 m2 HR: 64 bpm BP: 130/85 mmHg Rhythm: NSR Indications: CP, SOB Medical History Medications: Levothyroxine,,,,, Metoprolol,,,,, Asa,,,,, Hydrocodone,,,,, Gabapentin,,,,, ClonAZEPAM,,,,, CloPIdogrel,,,,, Tizanidine,,,,, LanTanaprost,,,,, Epi shot,,,,, Allergies: No known drug allergies Cardiac Risk Factors: FHX of CAD, Smoking Stress Test Details Test: LEXISCAN HR Resting HR: 71 bpm Max Heart Rate (APMHR): 160 bpm Max HR Achieved: 101 bpm Target HR (85% APMHR): 136 bpm % of APMHR: 63 Recovery HR: 94 bpm BP Resting BP: 130/85 mmHg Max BP: 150/95 mmHg Recovery BP: 118.0/88.0 mmHg ECG Resting ECG: NSR, Inferior/Lateral NSSTTW Abnormalities Clinical Reason for Termination: Completed Protocol Exercise duration: 04:02 min Highest Stage Achieved: Exercise capacity: 1.0 METs Stress ECG Conclusion Patient had no CP or no Arrhythmias. Less than 1.5mm ST Segment Changes. Non-Diagnostic. Electronically signed by : Salvador Shultz, 07/26/2019 14:51:23
--- NOTE | 2019-07-26 10:38 | HMH.ITSHM ---
Current Home Medications as stated by this patient Monica Munoz or underwriting service representative. [] tizanidine timolol metoprolol levothyroxine gabapentin asa trazodone
== END ==
PROVIDERS: PCP Emergency Medicine; Visit Provider Urology
DX: F41.9 Anxiety disorder, unspecified (principal); I25.10 Atherosclerotic heart disease of native coronary artery without angina pectoris; I77.4 Celiac artery compression syndrome; R06.02 Shortness of breath; R07.9 Chest pain, unspecified; R53.83 Other fatigue
CPT/HCPCS: 78452; 93017; 93306; A9502; J2785

== ENCOUNTER 2020-09-03 10:47 | Emergency (ER) | payer MEDICARE, SELFPAY ==
[2020-09-03 11:00] VITALS: BP 122/71; PULSE 102; RESP 16; TEMP 36.2; O2SAT 95; BMI 17.7
--- NOTE | 2020-09-03 11:00 | XR_ITS ---
PROCEDURE: XR CHEST PORTABLE Referring Doctor: Elva Saldaña Patient Age:60Y CLINICAL HISTORY: productive cough, COVID testing COMPARISON: CR CXR1VP XR chest portable from 10/19/2017 CR CXR2V XR chest 2V from 06/05/2018 CR CXR2 XR chest AP from 12/06/[address] CHEST WO CON from 05/15/2019 FINDINGS: AP portable CXR Single-view. Slightly higher contrast technique used today accentuates markings somewhat compared to the previous study Underlying COPD emphysematous changes Increased density at the lateral left lung base but I have suspect this reflects a new infiltrate along with scarring. This probable pneumonic infiltrate lateral left lung base, partially obscuring the left cardiac apex and left heart border.. This change since previous study but there were some areas of minor areas of scarring seen here previously Minimal patchy density at the right CP angle was similar to the 12/06/2018 the and may reflect some scarring related to this region is suggested also on a previous CT 2019 Scarring at the lateral aspect of the right mid lung adjacent to the major fissure was seen on prior studies and again evident today. Bilateral apical pleural and parenchymal scarring again noted similar to previous study. Cardiomegaly. Normal pulmonary vascularity . IMPRESSION: Suggestion of focal infiltrate/pneumonia lateral left lung base Increased density at the lateral left lung base, obscuring the lateral left heart border is seen today. COPD emphysema. Prominent hyperexpansion Favor densities on the right are related to areas of pleural parenchymal scarring-at right CP angle, as well as area along the lateral right mid chest. Favor chronic features but accentuated with today's higher contrast technique Cardiomegaly Dictated by: Benjamin Ramey MD 09/03/2020 12:35 Benjamin Ramey MD in [place] 09/03/2020 12:35
--- NOTE | 2020-09-03 11:02 | PC.NURSE ---
radiology notified of order for portable chest xray
--- NOTE | 2020-09-03 11:16 | HMH.EDUTC ---
[facility] [place]ression: Acute exacerbation of chronic obstructive airways disease Disposition: Home, Self-Care Condition on Discharge: Good Instructions: Chronic Obstructive Pulmonary Disease (Alternative Therapy), Chronic Obstructive Pulmonary Disease, Prednisone, Azithromycin Additional Instructions: ? Start antibiotic today. Be sure to complete entire prescription even if feeling better ? Monitor temp. Tylenol every 4 hours as needed and / or ibuprofen every 6 hours as needed ( As long as your primary care physician has told you that it ok to take both. For fever/aches/pains ER if no less than 101 despite Tylenol or Motrin ? Humidifier/vaporizer or hot steamy shower ? Inhaler every 4-6 hours as needed like we discussed. If unsure how to use it, ask pharmacist to demonstrate how. Should help open airways and improve cough, wheezing, and shortness of breath ? Mucinex during the day for your cough and cough suppressant only at night. Be sure to drink lots of water. Insurance may not cover a prescriptions for mucinex. Might be cheaper to get 400mg tablets and take 2 tablet in the morning, mid-day and evening with lots of water. *Start steroid today. Helps with inflammation therefore, cough and wheezing. Follow directions on the package. Reviewed side effects. Patient reports taking them before. Follow up IMMEDIATELY for new or worsening of symptoms OR no noticeable improvement over the next 48-72 hours. 911 immediately for any life threatening symptoms such as chest pain or difficulty breathing Prescriptions: predniSONE [Deltasone 10mg tablet] 10 mg PO BID 3 Days #6 tab Transmission Status: Received by [facility] Azithromycin [Z-Wiley 250mg Tab] 250 mg PO DIRECTED #6 tab Transmission Status: Received by [facility] Referrals: Tono He MD [Primary Care Provider] - As needed Time of Disposition: 11:44 Medical Decision Making - Ricky Inquiry Pt receiving controlled substance: No Ricky was queried for this patient: No Vital Signs: 09/03/20 11:00 09/03/20 11:53 Temperature 97.1 F L 97.1 F L Temperature Source Oral Pulse Rate 102 H Pulse Rate [Right Brachial] 102 H Respiratory Rate 16 16 Blood Pressure 122/71 Blood Pressure [Right Arm] 122/71 Blood Pressure Mean [Right Arm] 88 Blood Pressure Source [Right Arm] Automatic Cuff Blood Pressure Position [Right Arm] Sitting 02 Sat by Pulse Oximetry 95 Oxygen Delivery Method Room Air Orders (Tests/Meds): ORDERS Category Date Time Status Covid-19 Nasal PCR Sendout P&C Routine Lab 09/03/20 11:00 Received - Radiology Data #1 Image(s): Chest Image Reviewed: Yes I reviewed the patient's radiology image w/the ED provider Discussed with Dr Saba, COPD Medical Decision Narrative: Patient states that she has taken medication before without complications or reactions [facility] [place] - General Stated complaint: sob, cough Time Seen by Provider: 09/03/20 11:16 Mode of Arrival: Ambulatory Source of Information: Patient Limitations: No Limitations Description of Symptoms (Recalled from Triage Doc. by RN): PATIENT C/O SOA, PRODUCTIVE COUGH WITH YELLOW SPUTUM, AND CHEST CONGESTION/TIGHTNESS X 2 WEEKS. REQUESTING COVID TEST HEENT Symptoms (Recalled from RN notes): No Resp Symptoms (Recalled from RN notes): Yes Skin Symptoms (Recalled from RN notes): No MS Symptoms (Recalled from RN notes): No Functional Status (Recalled from RN notes): WNL - History of Present Illness Provider Complaint: Patient state that she hasnt been feeling well on and off for two weeks States that she has had sinus pain and pressure, drainage in the back of her throat, cough, and chest congestion States that she has COPD and sometimes gets pneumonia States that she also wants to get tested for COVID States that she is suppose to be on O2 at home but only uses it when she needs it and has Nebulizer - Related Data Home Medi
[2020-09-03 11:53] VITALS: BP 122/71; PULSE 102; RESP 16; TEMP 36.2; O2SAT 95
[2020-09-04 11:32] LABS: Covid-19 Nasal PCR Sendout P&C NEGATIVE
== END 2020-09-03 11:57 | disposition home or self-care (01) ==
PROVIDERS: Emergency Provider Nurse Practitioner; PCP Emergency Medicine
DX: J44.1 Chronic obstructive pulmonary disease with (acute) exacerbation (principal); K21.9 Gastro-esophageal reflux disease without esophagitis; E03.9 Hypothyroidism, unspecified; I25.10 Atherosclerotic heart disease of native coronary artery without angina pectoris; F41.8 Other specified anxiety disorders; F17.210 Nicotine dependence, cigarettes, uncomplicated
CPT/HCPCS: G0463; 71045; 99202; U0004

== ENCOUNTER → 2020-11-03 17:22 | Outpatient (CLI) | payer MEDICARE, SELFPAY ==
[2020-11-03 18:22] LABS: Basophils # 0.1 K/mm3 (0-0.2); Eosinophils # 0.1 K/mm3 (0.0-0.4); Eosinophils % 1.1 % (0.1-12.0); Hemoglobin 13.8 g/dL (12.2-16.2); Lymphocytes # 2.9 K/mm3 (0.7-4.5); Lymphocytes % 46.8 % (10-50); Mean Corpuscular HGB Conc 32.8 g/dL (31.8-35.4); Mean Corpuscular Hemoglobin 31.2 pg (27.0-31.2); Mean Corpuscular Volume 95.3 fl (81-99); Mean Platelet Volume 8.4 fl (7.4-10.4); Monocytes # 0.3 K/mm3 (0.1-1.0); Monocytes % 5.7 % (1.7-9.3); Neutrophils # 2.8 K/mm3 (1.8-7.8); Neutrophils % 45.4 % (37.0-80.0); Platelet Count 240 K/mm3 (142-424); Red Cell Distribution Width 12.8 % (11.5-17.5); White Blood Count 6.1 K/mm3 (4.8-10.8)
[2020-11-03 18:32] LABS: Alanine Aminotransferase 8 U/L (12-78); Albumin Level 4.4 g/dl (3.5-5.0); Albumin/Globulin Ratio 1.5 (1.1-1.8); Alkaline Phosphatase 73 U/L (38-126); Aspartate Amino Transferase 23 U/L (14-36); Bilirubin,Total 0.8 mg/dl (0.2-1.3); Blood Urea Nitrogen 9 mg/dl (7-17); Calcium 9.6 mg/dl (8.4-10.2); Carbon Dioxide 27 mmol/L (22.0-30.0); Chloride 106 mmol/L (98-107); Chol/HDL Ratio 3.7 (1-3.5); Cholesterol 187 mg/dl (140-200); Estimated Glomerular Filt Rate 102 ml/min (>60); GFR (African American) 123 ML/MIN (>60); Glucose 118 mg/dl (74-100); HDL Cholesterol 50 mg/dl (40-60); Sodium 139 mmol/L (136-145); Total Protein,Serum 7.4 g/dl (6.3-8.2); Triglycerides 121 mg/dl (30-150); VLDL Cholesterol 24 mg/dL (0-40)
[2020-11-03 18:38] LABS: Amphetamine/Metha Screen,Urine Negative ng/ml (<1000); Barbiturates Screen,Urine Negative ng/ml (<200)
[2020-11-03 18:39] LABS: Benzodiazepines Screen,Urine Negative ng/ml (<200)
[2020-11-03 18:40] LABS: Cannabinoid Screen,Urine Negative ng/ml (<50); Cocaine Screen,Urine Negative ng/ml (<300)
[2020-11-03 18:41] LABS: Methadone Screen,Urine Negative ng/ml (<300); Opiate Screen,Urine Positive ng/ml (<300)
[2020-11-03 18:42] LABS: Phencyclidine Screen,Urine Negative ng/ml (<25)
[2020-11-03 18:44] LABS: Direct LDL Cholesterol 119.02 mg/dL (100-129); Erythrocyte Sedimentation Rate 15 mm/hr (0-30)
[2020-11-03 18:50] LABS: Free T4 (Free Thyroxine) 1.17 ng/dl (0.78-2.19)
[2020-11-03 19:05] LABS: Thyroid Stimulating Hormone 2.12 uIU/mL (0.465-4.68)
[2020-11-03 19:23] LABS: 25-OH Vitamin D, Total 13.9 ng/mL (30-100)
== END ==
PROVIDERS: Visit Provider Emergency Medicine
DX: R63.4 Abnormal weight loss (principal); Z79.899 Other long term (current) drug therapy; E55.9 Vitamin D deficiency, unspecified
CPT/HCPCS: 80053; 80061; 80305; 82306; 84439; 84443; 85025; 85651

== ENCOUNTER → 2020-12-29 17:43 | Outpatient (CLI) | payer MEDICARE, SELFPAY ==
[2020-12-29 18:32] LABS: Amphetamine/Metha Screen,Urine Negative ng/ml (<1000)
[2020-12-29 18:33] LABS: Barbiturates Screen,Urine Negative ng/ml (<200)
[2020-12-29 18:34] LABS: Benzodiazepines Screen,Urine Negative ng/ml (<200); Cannabinoid Screen,Urine Negative ng/ml (<50)
[2020-12-29 18:35] LABS: Cocaine Screen,Urine Negative ng/ml (<300); Methadone Screen,Urine Negative ng/ml (<300)
[2020-12-29 18:36] LABS: Opiate Screen,Urine Positive ng/ml (<300)
[2020-12-29 18:37] LABS: Phencyclidine Screen,Urine Negative ng/ml (<25)
== END ==
PROVIDERS: Visit Provider Emergency Medicine
DX: Z79.899 Other long term (current) drug therapy (principal)
CPT/HCPCS: 80305

== ENCOUNTER → 2021-01-14 07:53 | Outpatient (CLI) | payer MEDICARE, SELFPAY ==
--- NOTE | 2021-01-14 07:53 | MR_ITS ---
PROCEDURE: MR HEAD/BRAIN WO CON CLINICAL INDICATION: dizziness COMPARISON: CT HDWO CT HEAD W/O CONTRAST from 11/02/2016 TECHNIQUE: Routine multiplanar multi echo sequences are performed without gadolinium enhancement. FINDINGS: No evidence of restricted diffusion. Flow voids in the major intracranial vessels are preserved. No space-occupying lesion, intra or extra-axial hemorrhage or mass lesion. Focal areas of T2 and FLAIR hyperintensity are noted in the periventricular and subcortical white matter, may represent microvascular changes. The ventricles are normal in size, shape and symmetry. Brain parenchymal volume is appropriate for the age of the patient. No midline shift or mass effect. The sella and the suprasellar region are unremarkable. The visualized osseous structures are unremarkable. Paranasal sinuses and mastoid air cells are clear. IMPRESSION: No acute intracranial process. Scattered periventricular and subcortical white matter microvascular changes. Dictated by: Fatemeh Estes 01/14/2021 11:28 Fatemeh Estes in [place] 01/14/2021 11:28
== END ==
PROVIDERS: PCP Emergency Medicine; Visit Provider Emergency Medicine
DX: R42 Dizziness and giddiness (principal)
CPT/HCPCS: 70551

== ENCOUNTER → 2021-01-25 09:29 | Outpatient (CLI) | payer MEDICARE, SELFPAY ==
[2021-01-25 10:30] VITALS: PULSE 62; PULSE 63
--- NOTE | 2021-01-25 10:44 | CT_ITS ---
PROCEDURE: CT CHEST WO CON CLINICAL INDICATION: Nodule follow-up COMPARISON: CT CT CHEST WO CON from 05/15/2019 TECHNIQUE: Axial images obtained with sagittal and coronal reformats. All CT scans at the facility use one or more dose reduction, viz: automated exposure control, ma/kV adjustment per patient size (including targeted exams where dose is matched to indication, i.e. head), or iterative reconstruction technique. FINDINGS: HEART AND MEDIASTINAL STRUCTURES: Numerous calcified mediastinal lymph nodes are present. No mediastinal adenopathy. LUNGS AND PLEURAL SPACES: COPD with scattered areas of scarring.. Numerous parenchymal and subpleural opacities are present as before and have a similar appearance when compared to the previous exam. Specifically, the spiculated nodule in the right upper lobe laterally and the parenchymal opacity within the right middle lobe anteriorly as well as other parenchymal lesions are unchanged. No new abnormalities apparent. BONY STRUCTURES: Degenerative changes thoracic spine. UPPER ABDOMEN: Vascular stent is present in the celiac artery region. ADDITIONAL FINDINGS: No other significant abnormalities. IMPRESSION: Overall stable CT appearance of the chest. COPD with scattered areas of scarring which appear stable. No new abnormalities appreciated. Dictated by: Forrest Hayward MD 01/25/2021 12:47 Forrest Hayward MD in [place] 01/25/2021 12:47
[2021-01-25 11:00] VITALS: BP 112/85; BP 115/76; PULSE 60; PULSE 63; RESP 20; RESP 22; O2SAT 93; O2SAT 96
== END ==
PROVIDERS: PCP Emergency Medicine; Visit Provider Internal Medicine Pulmonary Disease
DX: R91.8 Other nonspecific abnormal finding of lung field
CPT/HCPCS: 71250; 94060; 94618; 94640; 94726; 94729

== ENCOUNTER → 2021-01-29 17:23 | Outpatient (CLI) | payer MEDICARE, SELFPAY ==
[2021-01-29 20:23] LABS: Amphetamine/Metha Screen,Urine Negative ng/ml (<1000); Barbiturates Screen,Urine Negative ng/ml (<200)
[2021-01-29 20:24] LABS: Benzodiazepines Screen,Urine Negative ng/ml (<200)
[2021-01-29 20:25] LABS: Cannabinoid Screen,Urine Negative ng/ml (<50)
[2021-01-29 20:26] LABS: Cocaine Screen,Urine Negative ng/ml (<300); Methadone Screen,Urine Negative ng/ml (<300)
[2021-01-29 20:27] LABS: Opiate Screen,Urine Positive ng/ml (<300)
[2021-01-29 20:29] LABS: Phencyclidine Screen,Urine Negative ng/ml (<25)
== END ==
PROVIDERS: Visit Provider Emergency Medicine
DX: Z79.899 Other long term (current) drug therapy (principal)
CPT/HCPCS: 80305

== ENCOUNTER → 2021-02-02 06:56 | Outpatient (CLI) | payer MEDICARE, SELFPAY ==
--- NOTE | 2021-02-02 06:59 | NM_ITS ---
APPROVED REPORT Exam: Nuclear Stress Test Indication: Chest pain, CAD, SOB, Palpitations, Fatigue, Tobacco use, Family history Patient Location: Outpatient Stress Tech: Katt Nur [place] Tech:Joanie Hummel, JAZMINET, RT (R)(N) Ht: 5 ft 9 in Wt: 109 lbs Bra Size: 32B HR: 75 bpm BP: 111/66 mmHg BSA: 1.60 m2 BMI: 16.0 History: Chest pain, CAD, SOB, Palpitations, Fatigue, Tobacco use, Family history Procedure: Patient received a 0.4 mg of intravenous Lexiscan, resting heart rate 75 bpm, resting blood pressure 111/66 mmHg, with Lexiscan maximum heart rate achived was 102 bpm which is Less than 85 % of the maximum predicted heart rate and blood pressure was 121/75 mmHg. With Lexiscan, patient denied any complaint of chest pain. Electrocardiogram Resting electrocardiogram shows sinus rhythm, with Lexiscan there is less than 1.[address] segment depression noted from the baseline EKG. The EKG portion of the Lexiscan is nondiagnostic. Cardiac Stress and Resting SPECT Images: Cardiac Stress and Resting SPECT images were obtained using technetium 99m Myoview 30.6 mCi stress and 10.87 mCi at rest. Gated SPECT for analysis of segmental wall motion and calculation of the ejection fraction also done. Prone images were also obtained. Cardiac stress and resting SPECT images show uniform myocardial activity without segmental perfusion abnormality, computer derived ejection fraction is 56% with no regional wall motion abnormality, right ventricle is normal size and contractility. Conclusion: 1. The EKG portion of the Lexiscan is nondiagnostic. 2. No scintigraphic evidence of reversible ischemia seen, computer derived ejection fraction is 56% with no regional wall motion abnormality, right ventricle is normal size and contractility. 3. Normal Lexiscan Myoview study. Electronically signed by : Salvador Shultz, 02/02/2021 18:26:58
--- NOTE | 2021-02-02 06:59 | CA_ITS ---
APPROVED REPORT EXAM: Comprehensive 2D, Doppler, and color-flow Echocardiogram Pillowcase Folder: Shabana Gracia CRT Ht: 5 ft 9 in Wt: 109lbs BSA: 1.60 BP: 115/80 mmHg Indications: Chest Pressure, COPD, Shortness of Breath, Fatigue, CAD 2D Dimensions IVSd 1.20 cm LVEF (Visual) 57.70 % PWd 1.20 cm LVDd 3.70 cm LVDs 2.60 cm LVOT 1.70 cm (M/F) 1.5-2.5 M-Mode Dimensions RVDd 2.00 cm (0.9-2.6) LA Diam 2.50 cm (1.9-4.0) LVDd 3.70 cm (3.5-5.7) Ao Diam 2.90 cm (2.0-3.7) LVDs 2.80 cm (3.5-5.7) AV Cusp 1.80 cm (1.5-2.6) IVSd 1.20 cm (0.6-1.1) PWd 0.80 cm (0.6-1.1) EF (Teich) 49.10% FS 24.30% EDV (Teich) 58.10 mL ESV (Teich) 29.60 mL LV Diastology E/A Ratio 0.70 MED E' 10.20 (< 7 cm/sec) MED A' 11.30 cm/s E'/MED E' Ratio 5.20 (>14) LAT E' 9.46 (<10 cm/sec) LAT A' 15.00 cm/s E/LAT E' Ratio 5.60 (>14) Aortic Valve AoV Peak Oscar. 104.00 (50-130 cm/s) AO Peak GR. 4.00 mmHg Mitral Valve MV E Max Oscar. 53.30 (40-130 cm/s) MV A Velocity 74.50 (40-130 cm/s) E/A Ratio 0.70 Pulmonary Valve PA Accel Time 162.00 (>120 msec) Tricuspid Valve TR P. Velocity 92.00 cm/s RAP Estimate 10.00 mmHg RVSP 13.00 mmHg Left Ventricle Left atrium is mildly enlarged, left ventricle is normal size, mild qualitative concentric left ventricular hypertrophy, visually estimated ejection fraction 55% with no regional wall motion abnormality, grade 1 diastolic dysfunction seen without tissue Doppler evidence of raise left atrial pressure. Right Ventricle Right atrium and right ventricle are normal size and contractility. Aortic Valve Aortic valve is minimally thickened and fibrosed, there is no aortic stenosis or aortic insufficiency. Mitral Valve Mitral valve is grossly normal, there is trace mitral regurgitation. Tricuspid Valve Tricuspid grossly normal, there is trace tricuspid regurgitation, tricuspid regurgitation jet velocity is inadequate for calculation of the right ventricular systolic pressure. Pulmonic Valve Pulmonic valve is poorly visualized. Great Vessels Aortic root is normal size. Pericardium No significant pericardial effusion noted. Conclusion 1. Mildly enlarged left atrium, normal left ventricular size, mild concentric left ventricular hypertrophy, visually estimated ejection fraction 55% with no regional wall motion abnormality, grade 1 diastolic dysfunction seen without tissue Doppler evidence of raise left atrial pressure. 2. Trace mitral and tricuspid regurgitation. 3. No significant pericardial effusion noted. Electronically signed by : Salvador Shultz, 02/02/2021 18:51:00
--- NOTE | 2021-02-02 06:59 | CA_ITS ---
APPROVED REPORT Exam: Pharmacologic Technologist: ludmila carlos, Ht: 5 ft 9 in Wt: 115 lbs BSA: 1.63 m2 HR: 75 bpm BP: 111/66 mmHg Indications: SOA, CAD Medical History Medications: Levothyroxine,,,,, Metoprolol,,,,, Asa,,,,, Trazadone,,,,, Gabapentin,,,,, Albuterol,,,,, CloPIdogrel,,,,, Famotidine,,,,, Tizanidine,,,,, Latanoprost,,,,, Hydroxyzine,,,,, FOsomax,,,,, Allergies: NKA Cardiac Risk Factors: FHX of CAD, Smoking Stress Test Details Test: LEXISCAN HR Resting HR: 75 bpm Max Heart Rate (APMHR): 159.831265 bpm Max HR Achieved: 102 bpm Target HR (85% APMHR): 135.038759 bpm % of APMHR: 64.15 Recovery HR: 96 bpm BP Resting BP: 111/66 mmHg Max BP: 121/75 mmHg Recovery BP: 98.0/64.0 mmHg ECG Resting ECG: NSR, right axis deviation Clinical Exercise duration: 04:03 min Highest Stage Achieved: Stress ECG Conclusion No chest pain. Mild nausea and malaise. [place] SOA. No arrhythmia or ectopy. No significant ST changes. Unremarkable Lexiscan stress. Images reported separately. Test Summary REST 02:59 . . 75 . 111/ 66 . . Stage 1 01:00 . . 95 . . . . Stage 2 01:00 . . 102 . 121/ 75 . . Stage 3 01:00 . . 100 . 117/ 75 . . Stage 4 01:00 . . 99 . 114/ 71 . . Stage 4 01:03 . . 99 . 114/ 71 . Stop exercise at 04:03 RECOVERY 01:00 . . 96 . 98/ 64 . . RECOVERY 02:00 . . 96 . 98/ 71 . . RECOVERY 03:00 . . 94 . 98/ 71 . . RECOVERY 03:32 . . 92 . 103/ 70 . . Electronically signed by : Salvador Shultz, 02/02/2021 18:18:33
--- NOTE | 2021-02-02 09:44 | HMH.ITSHM ---
Current Home Medications as stated by this patient Monica Munoz or asset protection representative. []BUDESONIDE ASA ALENDRONATE VILAZODONE TRAZODONE TIZANIDINE TIMOLOL SUCRALFATE METOPROLOL LEVOTHYROXINE LATANOPROST IPRATROPIUM HYDROXYZINE GABAPENTIN CLOPIDOGREL TRINTELLIX MULTIVITAMIN FLUTICASONE FAMOTIDINE VITMAIN D3
== END ==
PROVIDERS: PCP Emergency Medicine; Visit Provider Urology
DX: I25.118 Atherosclerotic heart disease of native coronary artery with other forms of angina pectoris (principal)
CPT/HCPCS: 78452; 93017; 93306; A9502; J2785

== ENCOUNTER → 2021-02-05 10:06 | Outpatient (CLI) | payer MEDICARE, SELFPAY ==
[2021-02-05 10:43] LABS: Chloride 104 mmol/L (98-107); Potassium 4.9 mmoL/L (3.5-5.1); Sodium 139 mmol/L (136-145)
[2021-02-05 10:46] LABS: Blood Urea Nitrogen 5 mg/dl (7-17); Estimated Glomerular Filt Rate 102 ml/min (>60); GFR (African American) 123 ML/MIN (>60)
[2021-02-05 10:47] LABS: Anion Gap 10.9 mEq/L (5-15); Calcium 9.2 mg/dl (8.4-10.2); Carbon Dioxide 29 mmol/L (22.0-30.0); Glucose 92 mg/dl (74-100)
== END ==
PROVIDERS: Urology; Visit Provider Internal Medicine Cardiovascular Disease
DX: I25.118 Atherosclerotic heart disease of native coronary artery with other forms of angina pectoris (principal); R06.02 Shortness of breath
CPT/HCPCS: 36415; 80048

== ENCOUNTER 2021-03-26 12:18 | Emergency (ER) | payer MEDICARE, SELFPAY ==
--- NOTE | 2021-03-26 12:18 | ECG_ITS ---
APPROVED REPORT Exam: Resting ECG HR:75 bpm ECG Measurements Heart Rate 75 AXES OH 160 P 83 QRSd 78 QRS 67 QT 400 T 59 QTc 446 Conclusion Normal sinus rhythm Possible Left atrial enlargement Borderline ECG Electronically signed by : Fortino Romeo, 03/27/2021 15:19:05
[2021-03-26 12:22] VITALS: BP 104/68; PULSE 75; RESP 18; TEMP 36.7; O2SAT 96; BMI 17.2
[2021-03-26 12:24] VITALS: BMI 17.2
--- NOTE | 2021-03-26 12:25 | XR_ITS ---
PROCEDURE: XR CHEST PORTABLE CLINICAL HISTORY: chest pain/SOA COMPARISON: CR CXR2V XR chest 2V from 06/05/2018 CR CXR2 XR chest AP from 12/06/2018 CR XR CHEST PORTABLE from 09/03/[address] CHEST WO CON from 01/25/2021 FINDINGS: Background of chronic interstitial changes are noted. Bilateral apical pleural thickening. There is focal subsegmental opacity noted in the right mid zone,, represents a focal area of scarring noted on the prior study. No significant interval change is noted. No lobar consolidation, pleural effusions or pneumothorax. Cardiac size and central pulmonary vasculature within normal limits. Degenerative changes of the visualized thoracic spine. Vascular calcification is noted. IMPRESSION: No focal consolidation or pleural effusions. Dictated by: Fatemeh Estes 03/26/2021 13:07 Fatemeh Estes in [place] 03/26/2021 13:07
[2021-03-26 12:34] LABS: Basophils # 0.1 K/mm3 (0-0.2); Basophils % 0.7 % (0.1-2.0); Eosinophils # 0.1 K/mm3 (0.0-0.4); Eosinophils % 1.4 % (0.1-12.0); Hematocrit 40.2 % (37.0-47.0); Hemoglobin 13.3 g/dL (12.2-16.2); Lymphocytes # 3.7 K/mm3 (0.7-4.5); Lymphocytes % 41.4 % (10-50); Mean Corpuscular HGB Conc 33.1 g/dL (31.8-35.4); Mean Corpuscular Hemoglobin 31.2 pg (27.0-31.2); Mean Corpuscular Volume 94.2 fl (81-99); Mean Platelet Volume 7.9 fl (7.4-10.4); Monocytes # 0.6 K/mm3 (0.1-1.0); Monocytes % 6.5 % (1.7-9.3); Neutrophils # 4.5 K/mm3 (1.8-7.8); Platelet Count 248 K/mm3 (142-424); Red Blood Count 4.27 M/mm3 (4.20-5.40)
--- NOTE | 2021-03-26 12:42 | PC.NURSE ---
rad at bedside
--- NOTE | 2021-03-26 12:43 | PC.NURSE ---
rad at for portable cxr
[2021-03-26 13:00] VITALS: BP 95/62; PULSE 66; RESP 16; O2SAT 96
[2021-03-26 13:08] LABS: Chloride 109 mmol/L (98-107)
[2021-03-26 13:09] LABS: Potassium 3.8 mmoL/L (3.5-5.1); Sodium 141 mmol/L (136-145)
[2021-03-26 13:11] LABS: Blood Urea Nitrogen 6 mg/dl (7-17); Creatinine Clearance Estimated 49 mL/min (50-200); Estimated Glomerular Filt Rate 101 ml/min (>60); GFR (African American) 123 ML/MIN (>60)
[2021-03-26 13:12] LABS: Anion Gap 11.8 mEq/L (5-15); Calcium 8.7 mg/dl (8.4-10.2); Carbon Dioxide 24 mmol/L (22.0-30.0); Glucose 115 mg/dl (74-100)
[2021-03-26 13:25] LABS: Troponin I < 0.01 ng/ml (0.00-0.034)
--- NOTE | 2021-03-26 13:56 | PC.NURSE ---
MD at bedside updating pt
--- NOTE | 2021-03-26 14:05 | HMH.EDCP ---
ED Disposition Clinical Impression: Nonspecific chest pain Strain of thoracic region Qualifiers: Encounter type: initial encounter Qualified Code(s): S29.019A - Strain of muscle and tendon of unspecified wall of thorax, initial encounter Disposition: Home, Self-Care Condition on Discharge: Good Instructions: DI for Atypical Chest Pain Prescriptions: methocarbamoL [Methocarbamol] 750 mg PO QID 7 Days #28 tab Transmission Status: Pending to [facility] Referrals: Tono He MD [Primary Care Provider] - - Critical Care Critical Care Time: No Attestation: On 03/26/21, the high probability of a clinically significant, sudden or life threatening deterioration of the following system(s) required my full and direct attention, intervention and personal management. The time I documented below is in addition to time spent performing reported procedures but includes the following listed in this critical care notation. Medical Decision Making - Medical Records Medical records reviewed: Yes: I reviewed the patient's medical records. - Ricky Inquiry Pt receiving controlled substance: Yes Ricky was queried for this patient: No Reason not queried -: Ricky login issues Risks and benefits of using a controlled substance: were discussed with pt by me Vital Signs: 03/26/21 12:22 Temperature 98.0 F Temperature Source Oral Pulse Rate [Apical] 75 Respiratory Rate 18 Blood Pressure [Right Arm] 104/68 L Blood Pressure Mean [Right Arm] 80 Blood Pressure Source [Right Arm] Automatic Cuff Blood Pressure Position [Right Arm] Sitting 02 Sat by Pulse Oximetry 96 Oxygen Delivery Method Room Air - Lab Data Lab Results 03/26/21 12:26: WBC 9.0, RBC 4.27, Hgb 13.3, Hct 40.2, MCV 94.2, MCH 31.2, MCHC 33.1, RDW 14.0, Plt Count 248, MPV 7.9, Neut % (Auto) 50.0, Lymph % (Auto) 41.4, [place] % (Auto) 6.5, Eos % (Auto) 1.4, Baso % (Auto) 0.7, Neut # (Auto) 4.5, Lymph # (Auto) 3.7, [place] # (Auto) 0.6, Eos # (Auto) 0.1, Baso # (Auto) 0.1 03/26/21 12:26: Sodium 141, Potassium 3.8, Chloride 109 H, Carbon Dioxide 24, Anion Gap 11.8, BUN 6 L, Creatinine 0.60, Estimated Creat Clear 49, Estimated GFR 101, Est GFR ( Amer) 123, Glucose 115 H, Calcium 8.7, Troponin I < 0.01 Result diagrams: 03/26/21 12:26 03/26/21 12:26 Orders (Tests/Meds): ED MEDICATIONS Discontinued Medications Generic Name Dose Route Start Last Admin Trade Name Aldo PRN Reason Stop Dose Admin Aspirin 243 mg 03/26/21 12:26 03/26/21 12:26 Aspirin 81mg Chewable Tablet PO 03/26/21 12:27 243 mg ONCE ONE Administration Morphine Sulfate 4 mg 03/26/21 12:38 03/26/21 12:43 Morphine 4mg/Ml Syringe IV 03/26/21 12:39 4 mg ONCE ONE Administration Ondansetron HCl 4 mg 03/26/21 12:38 03/26/21 12:43 Ondansetron 4mg/2ml Vial IV 03/26/21 12:39 4 mg ONCE ONE Administration ORDERS Category Date Time Status Troponin I Q3H Lab 03/26/21 15:30 Ordered Troponin I Q3H Lab 03/26/21 18:30 Ordered - Radiology Data #1 Image(s): Chest Image Reviewed: Yes I reviewed the patient's radiology results, Yes I reviewed the patient's radiology image, Yes I have reviewed radiologist's interpretation Preliminary Findings: Normal/NAD, No Infiltrates Seen - ECG Data Tracing #1 ECG initial impression date: 03/26/21 ECG initial impression time: 12:18 ECG normal with no acute: arrhythmias, ischemia, conduction abnormalities, chamber hypertrophy - Reevaluation(s) Time: 14:09 Reevaluation #1: On reevaluation, the patient's pain is improved. Negative troponin. Chest x-ray is unremarkable. Patient be discharged with short course of analgesics. Needs to follow-up with PCP in 48 hours. Patient was given strict return precautions. Verbalized understanding. - JOLYNN Score for Non-Stemi Age of Patient: 60-69 years old Heart Rate: 70-89 bpm Systolic Blood Pressure: 100-119 mmHg Serum Creatinine: 0.40-0.79 mg
[2021-03-26 14:06] VITALS: BP 99/65; PULSE 646; RESP 17; O2SAT 98
[2021-03-26 14:30] VITALS: PULSE 62; RESP 13
--- NOTE | 2021-03-26 14:43 | PC.NURSE ---
PATIENT PROVIDED TODAY'S LABORATORY RESULTS PER PT REQUEST
[2021-03-26 15:00] VITALS: BP 109/70; PULSE 57; PULSE 68; RESP 18; RESP 21; TEMP 36.6; O2SAT 97; O2SAT 99
== END 2021-03-26 15:07 | disposition home or self-care (01) ==
PROVIDERS: Emergency Provider Emergency Medicine; PCP Emergency Medicine
DX: S29.019A Strain of muscle and tendon of unspecified wall of thorax, initial encounter (principal); F41.8 Other specified anxiety disorders; K21.9 Gastro-esophageal reflux disease without esophagitis; F17.210 Nicotine dependence, cigarettes, uncomplicated
CPT/HCPCS: 71045; 80048; 84484; 85025; 93005; 96374; 99283; J2405

== ENCOUNTER → 2021-04-06 10:35 | Outpatient (CLI) | payer MEDICARE, SELFPAY ==
--- NOTE | 2021-04-06 10:35 | MM_ITS ---
PROCEDURE INFORMATION: Exam: MG Screening 3D Mammography Exam date and time: 04/06/2021 10:35 AM Age: 61 years old Clinical indication: Encounter for screening mammogram for malignant neoplasm of breast TECHNIQUE: Imaging protocol: Screening tomosynthesis and 2D mammography including computer-aided detection (CAD) when performed. COMPARISON: 1. MG DIG MAMM-DX UNI-RT 02/18/2019 1:53 PM 2. MG DIG MAMM-SCREEN NORI 01/22/2019 10:57 AM FINDINGS: MAMMOGRAPHY: Breast composition: The breast tissue is heterogeneously dense, which may obscure small masses. Mass: None. Architectural distortion: None. Calcifications: No suspicious calcifications. Asymmetric density: None. Skin thickening: None. Axillary adenopathy: None. IMPRESSION: No mammographic evidence of malignancy. Annual screening is recommended unless otherwise clinically indicated. ASSESSMENT: BI-RADS Category 1: Negative
[2021-04-06 21:16] LABS: Amphetamine/Metha Screen,Urine Negative ng/ml (<1000)
[2021-04-06 21:17] LABS: Barbiturates Screen,Urine Negative ng/ml (<200)
[2021-04-06 21:18] LABS: Benzodiazepines Screen,Urine Negative ng/ml (<200); Cannabinoid Screen,Urine Negative ng/ml (<50)
[2021-04-06 21:19] LABS: Cocaine Screen,Urine Negative ng/ml (<300)
[2021-04-06 21:20] LABS: Methadone Screen,Urine Negative ng/ml (<300); Opiate Screen,Urine Positive ng/ml (<300)
[2021-04-06 21:21] LABS: Phencyclidine Screen,Urine Negative ng/ml (<25)
== END ==
PROVIDERS: PCP Emergency Medicine; Visit Provider Emergency Medicine
DX: Z12.31 Encounter for screening mammogram for malignant neoplasm of breast (principal); M51.36 Other intervertebral disc degeneration, lumbar region
CPT/HCPCS: 77063; 77067; 80305

== ENCOUNTER → 2021-04-23 10:45 | Outpatient (CLI) | payer MEDICARE, SELFPAY | PROVIDERS: Visit Provider Internal Medicine Gastroenterology | DX: Z01.812 Encounter for preprocedural laboratory examination (principal); Z20.822 Contact with and (suspected) exposure to COVID-19; Z13.810 Encounter for screening for upper gastrointestinal disorder; Z12.11 Encounter for screening for malignant neoplasm of colon | CPT/HCPCS: U0003 ==

== ENCOUNTER 2021-04-26 07:55 | Day surgery (SDC) | payer MEDICARE, SELFPAY ==
[2021-02-09 13:23] VITALS: BMI 16.0
[2021-04-20 10:20] VITALS: BMI 16.9
[2021-04-26 08:17] VITALS: BP 99/67; PULSE 104; RESP 20; TEMP 36.8; O2SAT 97
--- NOTE | 2021-04-26 08:42 | HMH.ANESCL ---
[facility] Anesthesia Checklist - Patient Identification Patient Identification: Arm Band, Verbal (Name & ) - Structural Data Admitted From: Home Planned Operative Procedure/s: egd/colon Consent for Planned Operative Procedure(s) Verified: Yes Verified Documents: Surgical Consent - NPO Status Verified Time NPO: 00:00 - Chart Verification Results Verified: CBC, BMP - Additional verifications Patient : No Anesthesia Reactions: No Hx Blood Transfusions: No Blood Transfusion Reaction: No Cephalosporin Allergy: No Previous Colonoscopy: Yes - Cardiovascular Assessment Heart Sounds: S1 & S2 Pulse Strength: Baseline Pulse Rhythm: Regular Peripheral Edema: No - Airway Assessment C-Spine Mobility Assessed: Yes TMJ Mobility Assessed: Yes Dentition: Edentulous - Neurological Assessment Level of Consciousness: Awake, Alert, Appropriate Hx Seizures: No Numbness or tingling in extremities: No - Anesthesia Plan Anesthesia Risk discussed: Yes ASA Class: III Anesthesia Type: [facility] History I have reviewed the patient's past medical history: Yes Medical History: Reports:: Anxiety, Chronic Obstructive Pulmonary Disease (COPD), Depression, Gastroesophageal Reflux Disease(GERD), Hyperlipidemia, Hypertension, Lung Disease Denies:: Cancer, Diabetes Mellitus Type 1, Diabetes Mellitus Type 2, Internal Pacemaker, MRSA, Seizures *Have you ever received a pneumonia vaccine?: No *Have you received a flu vaccine this season?: No Other Medical History: Reports: Arthritis, Glaucoma, Other. Denies: Blood Transfusion Reaction Anesthesia experience/problems:: none Laterality Cases: Bilateral: Total Knee Replacement Other Surgeries: Yes: No Previous Surgery, Angiogram, Cardiac Catheterization, Colonoscopy, Coronary Stent, , EGD, Hysterectomy-Total, Other. No: Pacemaker Amputation: No Fractures: No - *Social History Last grade of school completed: High school graduate Smoking Status: Former smoker Tobacco Type: cigarettes # Packs/Day (cigarettes): 1 #Yrs smoked (if former smoker): 30 Smoking End Date: DECEMBER 2020 Alcohol Intake: never Substance Use Type: denies use, marijuana *Occupational Status:: disabled Housing: house Household Members: family *Travel in the last 8 weeks: None - Psychiatric History Pschychiatric History:: Reports:: Anxiety, Depression Family Hx:: Coronary Artery Disease, Stroke
[2021-04-26 09:07] VITALS: O2SAT 99
--- NOTE | 2021-04-26 09:33 | P.PCN_ITS ---
[facility] Procedure Note Procedure Note:: Upper Endoscopy Procedure Report: Esophagogastroduodenoscopy with cold biopsies and TTS balloon dilation Endoscopost: Roderick Westbrook II, MD Referring Physician: Tono He MD Date of Procedure: April 26, 2021 Equipment: Olympus GIF 190 standard upper endoscope Sedation: MAC sedation Indications: Mrs. Munoz is a 61-year-old female who is here for diagnostic upper endoscopy secondary to generalized abdominal pain and weight loss. 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 She does state that she has lost 40 pounds over the last year. She was seen in June 2019 and had lost a moderate amount of weight at that time. The patient does report dyspepsia with bloating, belching, nausea and early satiety. She has some dysphagia. She also reports chronic diarrhea with rectal bleeding. She has gassiness and bloating. She is on Plavix and aspirin. She does take omeprazole and sucralfate. Procedure: Prior to the procedure, a history and physical exam was performed, and patient's medications and allergies were reviewed. The risks, benefits and alternatives of the sedation and procedure were discussed with the patient. All questions were answered and informed consent was obtained. The patient was brought to the procedure room. Patient identification and proposed procedure were verified by the physician and the nurse. The patient was placed in a left lateral decubitus position and the scope was passed under direct vision. Throughout the procedure, the patient's blood pressure, pulse, and oxygen saturations were monitored continuously. The upper GI endoscopy was accomplished without difficulty. The patient tolerated the procedure well. Findings: The scope was passed directly into the upper esophagus and advanced to the third portion of the duodenum. The post bulbar duodenum and duodenal bulb were normal with normal mucosa and conniventes. The scope was withdrawn through a normal duodenal bulb and pylorus into the stomach. There was moderate bile reflux with linear reactive gastropathy of the antrum. There was some mild chronic gastritis of the body and fundus. Cold biopsies were taken from the antrum and lesser curvature. Upon retroflexion there was a small sliding 1 to 2 cm hiatal hernia. The scope was then withdrawn into the esophagus. There was a distal esophageal ring. There was no evidence of reflux esophagitis or Fernandez's. There were tertiary contractions and evidence of moderate esophageal dysmotility. The entire esophagus was dilated to 60 Amharic/20 mm with a TTS hydrostatic balloon. The remainder of the esophageal mucosa was normal. Impression: 1. Nonerosive GERD with moderate esophageal dysmotility and very small sliding 1 to 2 cm hiatal hernia status post dilation to 20 mm 2. Bile reflux with mild linear reactive gastropathy and mild chronic gastritis Plan: I will follow-up the biopsies. I am still concerned that the patient has some chronic mesenteric angina based upon her weight loss and symptoms. I will inquire about any recent mesenteric angiography. I will proceed with colonoscopy.
--- NOTE | 2021-04-26 09:58 | P.PCN_ITS ---
[facility] Procedure Note Procedure Note:: Colonoscopy Procedure Report: Colonoscopy with cold biopsies Endoscopist: Roderick Westbrook II, MD Referring physician: Tono He MD Date of Procedure: April 26, 2021 Equipment: Olympus 190 variable stiffness pediatric colonoscope Sedation: MAC sedation Indication: Mrs. Munoz is a 61-year-old female with epigastric and generalized abdominal pain with weight loss. She has persistent nausea and some sitophobia. She does have a history of celiac artery stenosis with mesenteric angina. In June 2018, she did have CT angiography showing high-grade stenosis of the ostium of the inferior mesenteric artery and 40% stenosis of the celiac artery. Presumably, she did have celiac stent placement. The patient does have chronic diarrhea with some bright red rectal bleeding from hemorrhoids. She has moderate gassiness and bloating. She did have a colonoscopy with Dr. Jc Gillis M.D. in January 2019 showing a splenic flexure polyp that was a tubular adenoma and a second polyp at 25 cm that was an adenoma. She does state that her sister and father had partial colectomy. Procedure: Prior to the procedure, a history and physical exam was performed, and patient's medications and allergies were reviewed. The risks, benefits and alternatives of the sedation and procedure were discussed with the patient. All questions were answered and informed consent was obtained. The patient was brought to the procedure room. Patient identification and proposed procedure were verified by the physician and the nurse. The patient was placed in a left lateral decubitus position and the scope was passed under direct vision. Throughout the procedure, the patient's blood pressure, pulse, and oxygen saturations were monitored continuously. The colonoscopy was accomplished without difficulty. The patient tolerated the procedure well. Findings: On digital rectal examination there was normal rectal tone. There were no external hemorrhoids. The colonoscope was introduced through the anal canal to the rectum and advanced to the cecum. The ileocecal valve and appendiceal orifice were identified. The scope was advanced a short distance into the ileum which appeared grossly normal. The scope was then withdrawn into the colon. The cecum, ascending and transverse colon and mucosa were grossly normal. Cold biopsies were taken from the right colon. There were scattered diverticuli throughout the descending and sigmoid colon (LEFT colon). The rectum itself was normal. Upon retroflexion within the rectum there were grade 2 internal hemorrhoids. The preparation was excellent throughout with Seymour Preparation Score of 9. The cecal time was 14 minutes. Impression: 1. Left-sided diverticulosis 2. Grade 2 internal hemorrhoids Plan: I will follow-up the biopsies to rule out microscopic colitis. I am still concerned about some chronic mesenteric angina. I would recommend follow-up CT or MR mesenteric angiography.
[2021-04-26 10:00] VITALS: BP 86/60; PULSE 91; RESP 18; TEMP 36.2; O2SAT 97
[2021-04-26 10:10] VITALS: BP 95/47; PULSE 75; RESP 18; O2SAT 99
[2021-04-26 10:20] VITALS: BP 103/60; PULSE 74; RESP 18; O2SAT 97
[2021-04-26 10:40] VITALS: BP 105/69; PULSE 72; RESP 18; O2SAT 100
--- NOTE | 2021-04-26 10:59 | SUR.PHASEII ---
ORDERED MRI. OFFICE NOTIFIED AND PRE-AUTHORIZATION REQUIRED THROUGH INSURANCE. OFFICE WILL CALL PT WITH SCHEDULED MRI APPOINTMENT. PT AND SISTER VERBALIZED UNDERSTANDING
== END 2021-04-26 11:10 | disposition home or self-care (01) ==
LOC: OUTP 07:57
PROVIDERS: PCP Emergency Medicine; Visit Provider Internal Medicine Gastroenterology
PROC: 0DJ08ZZ Inspection of Upper Intestinal Tract, Via Natural or Artificial Opening Endoscopic (ICD-10-PCS; CPT 43235; principal; 2021-04-26 09:00)
DX: Z86.010 Personal history of colon polyps (principal); K57.30 Diverticulosis of large intestine without perforation or abscess without bleeding; K64.1 Second degree hemorrhoids; K21.9 Gastro-esophageal reflux disease without esophagitis; K22.4 Dyskinesia of esophagus; K44.9 Diaphragmatic hernia without obstruction or gangrene; K31.9 Disease of stomach and duodenum, unspecified; K29.50 Unspecified chronic gastritis without bleeding; J44.9 Chronic obstructive pulmonary disease, unspecified; F41.9 Anxiety disorder, unspecified; E78.5 Hyperlipidemia, unspecified; I10 Essential (primary) hypertension
CPT/HCPCS: 43239; 43249; 45380; 88305; C1726

== ENCOUNTER → 2021-05-12 07:52 | Outpatient (CLI) | payer MEDICARE, SELFPAY ==
--- NOTE | 2021-05-12 08:04 | CT_ITS ---
Procedure: CT ANGIO ABDOMEN CLINICAL HISTORY: WEIGHT LOSS,UPPER ABD PAIN, COMPARISON: XA AORTAGRAM CL aortagram from 01/11/2019 TECHNIQUE: IV Contrast: 100ml Isovue 370 Axial images obtained with sagittal and coronal reformats. All CT scans at the facility use one or more dose reduction, viz: automated exposure control, ma/kV adjustment per patient size (including targeted exams where dose is matched to indication, i.e. head), or iterative reconstruction technique. FINDINGS: No evidence of aortic aneurysm. Atheromatous changes are present involving the aortoiliac vessels with fibrocalcific plaque. There is a stent within the proximal aspect of the celiac artery. The stent appears patent. Mild stenosis involves the ostium of the celiac artery of approximately 20 percent. The SMA has an unremarkable appearance. The ANDREA is patent. No evidence of renal artery stenosis or aneurysm Atheromatous changes involve the common iliacs on both sides. There is calcific plaque of the distal aorta. No significant iliac artery stenosis. Pertinent incidental findings: Moderate amount of retained colonic feces. Mild wedging of T11 and T12 which appears chronic. IMPRESSION: Atheromatous changes involve the aortoiliac vessels. There is a patent stent at the proximal celiac artery with mild stenosis of the ostium of the celiac at approximately 20 percent. No other significant abnormalities. Dictated by: Forrest Hayward MD 05/14/2021 10:01 Forrest Hayward MD in [place] 05/14/2021 10:01
[2021-05-12 08:15] LABS: Blood Urea Nitrogen 11 mg/dl (7-17); Estimated Glomerular Filt Rate 101 ml/min (>60); GFR (African American) 123 ML/MIN (>60)
== END ==
PROVIDERS: PCP Emergency Medicine; Visit Provider Internal Medicine Gastroenterology
DX: R10.10 Upper abdominal pain, unspecified (principal); R63.4 Abnormal weight loss
CPT/HCPCS: 36415; 74175; 82565; 84520; Q9967

== ENCOUNTER → 2021-08-03 19:06 | Outpatient (CLI) | payer MEDICARE, SELFPAY ==
[2021-08-03 22:11] LABS: Amphetamine/Metha Screen,Urine Negative ng/ml (<1000); Barbiturates Screen,Urine Negative ng/ml (<200)
[2021-08-03 22:12] LABS: Benzodiazepines Screen,Urine Negative ng/ml (<200)
[2021-08-03 22:13] LABS: Cannabinoid Screen,Urine Negative ng/ml (<50); Cocaine Screen,Urine Negative ng/ml (<300)
[2021-08-03 22:14] LABS: Methadone Screen,Urine Negative ng/ml (<300)
[2021-08-03 22:15] LABS: Opiate Screen,Urine Positive ng/ml (<300); Phencyclidine Screen,Urine Negative ng/ml (<25)
== END ==
PROVIDERS: Visit Provider Emergency Medicine
DX: M51.36 Other intervertebral disc degeneration, lumbar region (principal)
CPT/HCPCS: 80305

== ENCOUNTER 2022-03-09 11:47 | Emergency (ER) | payer MEDICARE, SELFPAY ==
[2022-03-09] VITALS (10 sets, daily range): BP systolic 89–121; BP diastolic 55–84; PULSE 72–111; RESP 16–18; TEMP 22.2–36.7; O2SAT 94–100; BMI 13.1
--- NOTE | 2022-03-09 11:59 | ECG_ITS ---
APPROVED REPORT Exam: Resting ECG HR:92 bpm ECG Measurements Heart Rate 92 AXES WV 157 P 88 QRSd 80 QRS 91 QT 337 T 83 QTc 387 Conclusion SINUS RHYTHM Left atrial abnormality Late R wave progression, unchanged since 2020 ABNORMAL ECG UNCONFIRMED REPORT Electronically signed by : Fortino Romeo MD 03/10/2022 17:42:05
--- NOTE | 2022-03-09 12:16 | XR_ITS ---
FINAL REPORT CLINICAL HISTORY: weakness/chest tightness COMPARISON: March 26, 2021 FINDINGS: A single portable view of the chest was obtained. The heart size and pulmonary vascularity are within normal limits. The mediastinum is within normal limits. There is hyperinflation consistent with COPD. There is bilateral scarring, greatest in the apices. The bony thorax is intact. IMPRESSION: Findings consistent with COPD. Bilateral scarring, greatest in the apices. Reviewed, Interpreted and Dictated by Smith Woods III, MD Transcribed by Leatha Dye Authenticated and [facility] [place]
[2022-03-09 12:26] LABS: Basophils # 0.1 K/mm3 (0-0.2); Basophils % 0.8 % (0.1-2.0); Eosinophils # 0.1 K/mm3 (0.0-0.4); Eosinophils % 1.1 % (0.1-12.0); Hematocrit 45.4 % (37.0-47.0); Hemoglobin 13.8 g/dL (12.2-16.2); Lymphocytes # 2.9 K/mm3 (0.7-4.5); Lymphocytes % 27.6 % (10-50); Mean Corpuscular HGB Conc 30.5 g/dL (31.8-35.4); Mean Corpuscular Hemoglobin 31.1 pg (27.0-31.2); Mean Platelet Volume 8.3 fl (7.4-10.4); Monocytes # 0.6 K/mm3 (0.1-1.0); Monocytes % 5.8 % (1.7-9.3); Neutrophils # 6.9 K/mm3 (1.8-7.8); Neutrophils % 64.7 % (37.0-80.0); Platelet Count 266 K/mm3 (142-424); Red Blood Count 4.45 M/mm3 (4.20-5.40); Red Cell Distribution Width 13.5 % (11.5-17.5); White Blood Count 10.6 K/mm3 (4.8-10.8)
--- NOTE | 2022-03-09 12:26 | HMH.EDGENADL ---
ED Disposition Clinical Impression: Dehydration, Weight loss Acute bronchitis Qualifiers: Bronchitis organism: unspecified organism Qualified Code(s): J20.9 - Acute bronchitis, unspecified Disposition: Home, Self-Care Condition on Discharge: Fair Additional Instructions: Prednisone and Zithromax as prescribed. Follow-up with Dr. He in the office, call for appointment. Prescriptions: predniSONE [Prednisone 20mg Tab] 20 mg PO BID #10 tab Transmission Status: Pending to [facility] Azithromycin [Zithromax 250mg tab] 250 mg PO DAILY #4 tab Transmission Status: Pending to [facility] Referrals: Tono He MD [Primary Care Provider] - - Critical Care Critical Care Time: No Attestation: On 03/09/22, the high probability of a clinically significant, sudden or life threatening deterioration of the following system(s) required my full and direct attention, intervention and personal management. The time I documented below is in addition to time spent performing reported procedures but includes the following listed in this critical care notation. Medical Decision Making - Ricky Inquiry Pt receiving controlled substance: Yes Ricky was queried for this patient: Yes Risks and benefits of using a controlled substance: were not discussed with pt by me Vital Signs: 03/09/22 12:04 03/09/22 12:07 03/09/22 12:30 Temperature 98.1 F Temperature Source Oral Pulse Rate 86 81 Pulse Rate [Left Radial] 111 H Respiratory Rate 16 18 Blood Pressure 109/80 L 109/74 L Blood Pressure [Right Arm] 115/84 Blood Pressure Mean 83 Blood Pressure Mean [Right Arm] 94 02 Sat by Pulse Oximetry 95 94 L 96 Oxygen Delivery Method Room Air Room Air Oxygen Flow Rate (LPM) 03/09/22 12:53 03/09/22 13:00 03/09/22 14:00 Temperature Temperature Source Pulse Rate 81 84 87 Pulse Rate [Left Radial] Respiratory Rate Blood Pressure 109/78 L 105/73 L 121/73 Blood Pressure [Right Arm] Blood Pressure Mean 89 83 86 Blood Pressure Mean [Right Arm] 02 Sat by Pulse Oximetry 97 97 94 L Oxygen Delivery Method Oxygen Flow Rate (LPM) 03/09/22 14:30 03/09/22 15:00 03/09/22 15:30 Temperature Temperature Source Pulse Rate 86 76 73 Pulse Rate [Left Radial] Respiratory Rate Blood Pressure 96/66 L 89/58 L 102/55 L Blood Pressure [Right Arm] Blood Pressure Mean 76 68 59 Blood Pressure Mean [Right Arm] 02 Sat by Pulse Oximetry 100 99 100 Oxygen Delivery Method Nasal Cannula Nasal Cannula Oxygen Flow Rate (LPM) 2 2 - Lab Data Lab Results 03/09/22 11:54: WBC 10.6, RBC 4.45, Hgb 13.8, Hct 45.4, MCV 102.0 H, MCH 31.1, MCHC 30.5 L, RDW 13.5, Plt Count 266, MPV 8.3, Neut % (Auto) 64.7, Lymph % (Auto) 27.6, [place] % (Auto) 5.8, Eos % (Auto) 1.1, Baso % (Auto) 0.8, Neut # (Auto) 6.9, Lymph # (Auto) 2.9, [place] # (Auto) 0.6, Eos # (Auto) 0.1, Baso # (Auto) 0.1 03/09/22 11:54: Sodium 139, Potassium 4.1, Chloride 102, Carbon Dioxide 31 H, Anion Gap 10.1, BUN 10, Creatinine 0.50 L, Estimated Creat Clear 37, Estimated GFR 125, Est GFR ( Amer) 151, Glucose 104 H, Calcium 9.5, Total Bilirubin 0.5, AST 33, ALT 14, Alkaline Phosphatase 73, Troponin I < 0.01, Total Protein 8.0, Albumin 4.4, Globulin 3.6 H, Albumin/Globulin Ratio 1.2, Lipase 52 03/09/22 14:10: Urine Color Yellow, Urine Appearance Clear, Urine pH 5.5, Ur Specific [place] 1.015, Urine Protein Negative, Urine Glucose (UA) Negative, Urine Ketones Negative, Urine Blood Trace-i, Urine Nitrate Negative, Urine Bilirubin Negative, Urine Urobilinogen 0.2, Ur Leukocyte Esterase Negative, Urine RBC 3-5, Urine WBC Occasional, Ur Squamous Epith Cells 3-5, Urine Bacteria Trace, Urine Mucus 3+ Result diagrams: 03/09/22 11:54 03/09/22 11:54 Orders (Tests/Meds): ED MEDICATIONS Discontinued Medications Generic Name Dose Route Start Last Admin Trade Name Freq PRN Reason Stop Dose Admin Azithromycin 500 mg 03/09/22
[2022-03-09 12:29] LABS: Chloride 102 mmol/L (98-107); Potassium 4.1 mmoL/L (3.5-5.1); Sodium 139 mmol/L (136-145)
[2022-03-09 12:31] LABS: Blood Urea Nitrogen 10 mg/dl (7-17); Creatinine Clearance Estimated 37 mL/min (50-200); Estimated Glomerular Filt Rate 125 ml/min (>60); GFR (African American) 151 ML/MIN (>60)
--- NOTE | 2022-03-09 12:31 | CT_ITS ---
FINAL REPORT CLINICAL HISTORY: abd pain FINDINGS: CT OF THE ABDOMEN AND PELVIS WITH CONTRAST Axial CT images of the abdomen and pelvis were obtained after the administration of intravenous contrast. Coronal reformatted images were also obtained and reviewed.This study was performed with techniques to keep radiation doses as low as reasonably achievable (ALARA). Individualized dose reduction techniques using automated exposure control or adjustment of mA and/or kV according to the patient's size were employed. Abdomen: There is scarring in the lung bases.. The heart is normal in size. The liver has an unremarkable appearance. There is mild biliary duct dilatation of uncertain significance. There is mild nonspecific gallbladder wall thickening. The spleen is unremarkable. No adrenal mass is present. The pancreas has an unremarkable appearance. The kidneys are normal, without evidence of mass or hydronephrosis. The aorta is normal in caliber. There is moderate vascular calcification. There is no free fluid or adenopathy. No mass or abnormal fluid collection is seen. There is a celiac axis stent near its origin. Pelvis: The appendix is not well-visualized. The urinary bladder is unremarkable. No inflammatory process is seen. There is no evidence of mass or adenopathy. There is no evidence of bowel obstruction. IMPRESSION: Mild nonspecific gallbladder wall thickening with mild biliary duct dilatation of uncertain significance. Consider right upper quadrant ultrasound or nuclear medicine the paddle biliary scan. Reviewed, Interpreted and Dictated by Smith Woods III, MD Transcribed by Popeye Bhatti Authenticated and [facility]
[2022-03-09 12:32] LABS: Alanine Aminotransferase 14 U/L (12-78); Albumin Level 4.4 g/dl (3.5-5.0); Albumin/Globulin Ratio 1.2 (1.1-1.8); Alkaline Phosphatase 73 U/L (38-126); Anion Gap 10.1 mEq/L (5-15); Aspartate Amino Transferase 33 U/L (14-36); Bilirubin,Total 0.5 mg/dl (0.2-1.3); Calcium 9.5 mg/dl (8.4-10.2); Carbon Dioxide 31 mmol/L (22.0-30.0); Globulin 3.6 g/dL (1.3-3.2); Glucose 104 mg/dl (74-100); Lipase 52 U/L (23-300)
[2022-03-09 12:45] LABS: Troponin I < 0.01 ng/ml (0.00-0.034)
--- NOTE | 2022-03-09 12:45 | CT_ITS ---
FINAL REPORT CLINICAL HISTORY: hemoptysis, wt loss, chest pain FINDINGS: Thin section axial CT images of the chest were obtained with contrast. 3D reformatted images were also obtained. This study was performed with techniques to keep radiation doses as low as reasonably achievable (ALARA). Individualized dose reduction techniques using automated exposure control or adjustment of mA and/or kV according to the patient's size were employed. There is no evidence of pulmonary embolism. There is no evidence of thoracic aortic aneurysm or dissection. There is subcarinal adenopathy measuring up to 2.9 cm. There is right hilar adenopathy measuring up to 1.6 cm. Findings are nonspecific, may be reactive or neoplastic. There is moderate scarring. There is right middle lobe, lingular, and anterior right lower lobe opacities, may represent scarring versus inflammatory process such as mycobacterial/fungal diseases. Limited images of the upper abdomen are unremarkable. IMPRESSION: Evidence of pulmonary embolism. Subcarinal and right hilar adenopathy, may be reactive or neoplastic. Opacities as above, may represent scar versus inflammatory process. Reviewed, Interpreted and Dictated by Smith Woods III, MD Transcribed by Tiffany Alnozo Authenticated and [facility]
--- NOTE | 2022-03-09 13:06 | PC.NURSE ---
pt states she will provide urine sample after she returns from CT
--- NOTE | 2022-03-09 13:17 | PC.NURSE ---
pt to ct via stretcher
--- NOTE | 2022-03-09 13:36 | PC.NURSE ---
pt return from radiology
[2022-03-09 14:14] LABS: Microscopic, Urine URINE MICROSCOPIC (MICROSCOPIC)
[2022-03-09 14:17] LABS: Appearance,Urine CLEAR (Clear); Bilirubin,Urine Negative (Negative); Blood, Urine TRACE-I (Negative); Color,Urine YELLOW (Yellow); Glucose,Urine (UA) Negative (Negative); Ketones,Urine Negative (Negative); Leukocyte Esterase,Urine Negative (Negative); Nitrate,Urine Negative (Negative); PH,Urine 5.5 (5.0-8.5); Protein,Urine Negative (Negative); Specific Gravity, Urine 1.015 (1.005-1.030); Urobilinogen,Urine 0.2 EU/dl (0.2)
[2022-03-09 14:41] LABS: Bacteria,Urine Trace /lpf; Mucus,Urine 3+ /lpf; WBC,Urine Occasional #/hpf (0-3)
--- NOTE | 2022-03-09 15:15 | PC.NURSE ---
KAITY MORELAND speaking with Dr. He at this time regarding patient results
--- NOTE | 2022-03-09 15:16 | PC.NURSE ---
pt placed on 2L NC o2 due to sats staying around 86-89% RA; pt is now 100% on 2 liters
--- NOTE | 2022-03-09 15:17 | PC.NURSE ---
speaking to dr thomas
--- NOTE | 2022-03-09 15:32 | PC.NURSE ---
Pharmacy is bringing Vit B12 injection
[2022-03-09 16:36] LABS: Troponin I < 0.01 ng/ml (0.00-0.034)
== END 2022-03-09 16:06 | disposition home or self-care (01) ==
PROVIDERS: Emergency Provider Emergency Medicine; PCP Emergency Medicine
DX: E86.0 Dehydration (principal); R63.4 Abnormal weight loss; J20.9 Acute bronchitis, unspecified; J44.0 Chronic obstructive pulmonary disease with (acute) lower respiratory infection; Z87.891 Personal history of nicotine dependence
CPT/HCPCS: 36415; 71045; 71275; 74177; 80053; 81001; 83690; 84484; 85025; 93005; 96372; 96374; 96375; 99284; J2405; Q9967

== ENCOUNTER 2022-03-16 11:02 | Emergency (ER) | payer MEDICARE, SELFPAY ==
[2022-03-16 11:02] VITALS: BP 125/83; PULSE 84; RESP 15; O2SAT 97
--- NOTE | 2022-03-16 11:05 | ECG_ITS ---
APPROVED REPORT Exam: Resting ECG HR:75 bpm ECG Measurements Heart Rate 75 AXES DE 155 P 82 QRSd 78 QRS 92 QT 372 T 78 QTc 400 Conclusion SINUS RHYTHM Left atrial abnormality Poor R wave progression ABNORMAL ECG UNCONFIRMED REPORT Electronically signed by : Fortino Romeo MD 03/16/2022 17:57:14
[2022-03-16 11:07] VITALS: BP 134/88; PULSE 93; RESP 18; TEMP 36.9; O2SAT 97; BMI 13.4
--- NOTE | 2022-03-16 11:09 | HMH.EDGENADL ---
ED Disposition Clinical Impression: Dyspnea on exertion, Weight loss COPD (chronic obstructive pulmonary disease) Qualifiers: COPD type: unspecified COPD Qualified Code(s): J44.9 - Chronic obstructive pulmonary disease, unspecified Disposition: Home, Self-Care Condition on Discharge: Good Additional Instructions: See Dr. He in his office at 2:30 PM as scheduled. Follow-up thyroid function test with Dr. He at your appointment. Henrique from Dr. 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 Referrals: Tono He MD [Primary Care Provider] - - Critical Care Critical Care Time: No Attestation: On 03/16/22, the high probability of a clinically significant, sudden or life threatening deterioration of the following system(s) required my full and direct attention, intervention and personal management. The time I documented below is in addition to time spent performing reported procedures but includes the following listed in this critical care notation. Medical Decision Making - Ricky Inquiry Pt receiving controlled substance: No Vital Signs: 03/16/22 11:02 03/16/22 11:07 03/16/22 11:30 Temperature 98.5 F Temperature Source Oral Pulse Rate 84 76 Pulse Rate [Left Radial] 93 H Respiratory Rate 15 18 16 Blood Pressure 125/83 124/75 Blood Pressure [Right Arm] 134/88 Blood Pressure Mean [Right Arm] 103 Blood Pressure Source Automatic Cuff Blood Pressure Position Sitting 02 Sat by Pulse Oximetry 97 97 94 L Oxygen Delivery Method Room Air Room Air Room Air 03/16/22 12:00 03/16/22 12:28 Temperature 98.5 F Temperature Source Tympanic Pulse Rate 74 79 Pulse Rate [Left Radial] Respiratory Rate 17 18 Blood Pressure 104/73 L 100/62 L Blood Pressure [Right Arm] Blood Pressure Mean [Right Arm] Blood Pressure Source Blood Pressure Position 02 Sat by Pulse Oximetry 96 Oxygen Delivery Method Room Air Room Air - Lab Data Lab Results 03/16/22 11:15: WBC 10.2, RBC 4.74, Hgb 15.0, Hct 49.0 H, MCV 103.3 H, MCH 31.7 H, MCHC 30.7 L, RDW 13.7, Plt Count 269, MPV 8.5, Neut % (Auto) 61.9, Lymph % (Auto) 28.9, [place] % (Auto) 4.7, Eos % (Auto) 1.7, Baso % (Auto) 2.8 H, Neut # (Auto) 6.3, Lymph # (Auto) 3.0, [place] # (Auto) 0.5, Eos # (Auto) 0.2, Baso # (Auto) 0.3 H 03/16/22 11:15: Sodium 137, Potassium 4.4, Chloride 99, Carbon Dioxide 33 H, Anion Gap 9.4, BUN 12, Creatinine 0.60, Estimated Creat Clear 38, Estimated GFR 101, Est GFR ( Amer) 122, Glucose 119 H, Calcium 9.9, Troponin I < 0.01 03/16/22 11:15: Lipase 81 Result diagrams: 03/16/22 11:15 03/16/22 11:15 Orders (Tests/Meds): ED MEDICATIONS Discontinued Medications Generic Name Dose Route Start Last Admin Trade Name Freq PRN Reason Stop Dose Admin Ketorolac Tromethamine 15 mg 03/16/22 12:14 03/16/22 12:15 Ketorolac 30mg/Ml Vial IV 03/16/22 12:15 15 mg ONCE ONE Administration ORDERS Category Date Time Status Free T4 (Free Thyroxine) Stat Lab 03/16/22 12:30 Ordered Thyroid Stimulating Hormone Stat Lab 03/16/22 12:30 Ordered Troponin I Q3H Lab 03/16/22 14:30 Ordered Troponin I Q3H Lab 03/16/22 17:30 Ordered - Radiology Data #1 Image(s): Chest (Preliminary interpretation by me: Chronic COPD and scarring) Image Reviewed: Yes I reviewed the patient's radiology image - ECG Data Tracing #1 EKG interpreted by Marcelo Peña MD: Rhythm: sinus Rate: 75 [place]: normal Ectopy: none Conduction: normal ST Segment Changes: none T Wave Changes: none Q Waves: none No evidence of acute ischemia or injury Prior electrocardiagrams reviewed. No significant change from prior tracings. - Physician Consults Physician Consulted: ROBERT Wheat, for Dr. Vargas Time: 12:31 Reason -: Pt condition, Cardiology Eval/Care Comment/Response: He will transmit refills for metoprolol and Plavix to [place] [facility]. [facility]
--- NOTE | 2022-03-16 11:20 | XR_ITS ---
FINAL REPORT CLINICAL HISTORY: weakness COMPARISON: 03/26/2021 FINDINGS: SINGLE-VIEW CHEST The heart size is normal. The mediastinum is normal. The lungs are hyper inflated. There are chronic changes in both lungs. Density at the right apex is more evident than previous, probably related to difference in positioning. Recent CT demonstrates bilateral pleural and parenchymal opacities. There is no pneumothorax. IMPRESSION: Hyperinflation and chronic fibrosis. Reviewed, Interpreted and Dictated by Pacheco Castellanos MD Transcribed by Tiffany Alonzo Authenticated and [facility]
--- NOTE | 2022-03-16 11:26 | PC.NURSE ---
ER at ; family at
[2022-03-16 11:29] LABS: Basophils # 0.3 K/mm3 (0-0.2); Basophils % 2.8 % (0.1-2.0); Eosinophils # 0.2 K/mm3 (0.0-0.4); Eosinophils % 1.7 % (0.1-12.0); Lymphocytes % 28.9 % (10-50); Mean Corpuscular HGB Conc 30.7 g/dL (31.8-35.4); Mean Corpuscular Hemoglobin 31.7 pg (27.0-31.2); Mean Corpuscular Volume 103.3 fl (81-99); Mean Platelet Volume 8.5 fl (7.4-10.4); Monocytes # 0.5 K/mm3 (0.1-1.0); Monocytes % 4.7 % (1.7-9.3); Neutrophils # 6.3 K/mm3 (1.8-7.8); Neutrophils % 61.9 % (37.0-80.0); Platelet Count 269 K/mm3 (142-424); Red Blood Count 4.74 M/mm3 (4.20-5.40); Red Cell Distribution Width 13.7 % (11.5-17.5); White Blood Count 10.2 K/mm3 (4.8-10.8)
[2022-03-16 11:30] VITALS: BP 124/75; PULSE 76; RESP 16; O2SAT 94
[2022-03-16 11:30] LABS: Chloride 99 mmol/L (98-107); Potassium 4.4 mmoL/L (3.5-5.1); Sodium 137 mmol/L (136-145)
[2022-03-16 11:33] LABS: Anion Gap 9.4 mEq/L (5-15); Blood Urea Nitrogen 12 mg/dl (7-17); Calcium 9.9 mg/dl (8.4-10.2); Carbon Dioxide 33 mmol/L (22.0-30.0); Creatinine Clearance Estimated 38 mL/min (50-200); Estimated Glomerular Filt Rate 101 ml/min (>60); GFR (African American) 122 ML/MIN (>60); Glucose 119 mg/dl (74-100)
[2022-03-16 12:00] VITALS: BP 104/73; PULSE 74; PULSE 79; RESP 17; O2SAT 96; O2SAT 97
--- NOTE | 2022-03-16 12:06 | PC.NURSE ---
rounded on pt. pt requested another blanket and requested i ask the doctor for pain medication. blanket provided to pt. will inform MD of pain medication request.
[2022-03-16 12:08] LABS: Troponin I < 0.01 ng/ml (0.00-0.034)
--- NOTE | 2022-03-16 12:18 | PC.NURSE ---
Medication order placed by MD. medication given to pt. will reassess.
--- NOTE | 2022-03-16 12:22 | PC.NURSE ---
KAITY MORELAND speaking with ROBERT Wheat with Cardiology.
[2022-03-16 12:24] LABS: Lipase 81 U/L (23-300)
--- NOTE | 2022-03-16 12:27 | PC.NURSE ---
MD at the bedside reviewing test results and consultation from cardiology
[2022-03-16 12:28] VITALS: BP 100/62; PULSE 79; RESP 18; TEMP 36.9; O2SAT 95
[2022-03-16 12:29] VITALS: BP 100/62; PULSE 78; O2SAT 96
--- NOTE | 2022-03-16 12:31 | PC.NURSE ---
IV d/c at this time
[2022-03-16 12:55] LABS: Troponin I < 0.01 ng/ml (0.00-0.034)
[2022-03-16 12:59] LABS: Free T4 (Free Thyroxine) 1.19 ng/dl (0.78-2.19)
[2022-03-16 13:13] LABS: Thyroid Stimulating Hormone 1.47 uIU/mL (0.465-4.68)
== END 2022-03-16 12:36 | disposition home or self-care (01) ==
PROVIDERS: Emergency Provider Emergency Medicine; PCP Emergency Medicine
DX: R06.09 Other forms of dyspnea (principal); R63.4 Abnormal weight loss; Z68.1 Body mass index [BMI] 19.9 or less, adult; J44.9 Chronic obstructive pulmonary disease, unspecified; F41.9 Anxiety disorder, unspecified; F32.A Depression, unspecified; K21.9 Gastro-esophageal reflux disease without esophagitis; E78.5 Hyperlipidemia, unspecified; I10 Essential (primary) hypertension; M19.90 Unspecified osteoarthritis, unspecified site
CPT/HCPCS: 71045; 80048; 83690; 84439; 84443; 84484; 85025; 93005; 96374; 99284

== ENCOUNTER → 2022-04-13 19:08 | Outpatient (CLI) | payer MEDICARE, SELFPAY ==
[2022-04-13 14:26] LABS: Amphetamine/Metha Screen,Urine Negative ng/ml (<1000); Barbiturates Screen,Urine Negative ng/ml (<200)
[2022-04-13 14:27] LABS: Benzodiazepines Screen,Urine Negative ng/ml (<200)
[2022-04-13 14:28] LABS: Cannabinoid Screen,Urine Negative ng/ml (<50); Cocaine Screen,Urine Negative ng/ml (<300)
[2022-04-13 14:30] LABS: Opiate Screen,Urine Positive ng/ml (<300); Phencyclidine Screen,Urine Negative ng/ml (<25)
[2022-04-13 14:42] LABS: Methadone Screen,Urine Negative ng/ml (<300)
== END ==
PROVIDERS: PCP Emergency Medicine; Visit Provider Emergency Medicine
DX: M51.36 Other intervertebral disc degeneration, lumbar region (principal)
CPT/HCPCS: 80305

== ENCOUNTER → 2022-06-06 16:28 | Outpatient (CLI) | payer MEDICARE, SELFPAY ==
[2022-06-06 15:51] LABS: Phencyclidine Screen,Urine Negative ng/ml (<25)
[2022-06-06 15:58] LABS: Amphetamine/Metha Screen,Urine Negative ng/ml (<1000); Barbiturates Screen,Urine Negative ng/ml (<200)
[2022-06-06 15:59] LABS: Benzodiazepines Screen,Urine Negative ng/ml (<200)
[2022-06-06 16:02] LABS: Cannabinoid Screen,Urine Negative ng/ml (<50)
[2022-06-06 16:03] LABS: Cocaine Screen,Urine Negative ng/ml (<300); Methadone Screen,Urine Negative ng/ml (<300)
[2022-06-06 16:04] LABS: Opiate Screen,Urine Positive ng/ml (<300)
== END ==
PROVIDERS: PCP Emergency Medicine; Visit Provider Emergency Medicine
DX: M51.36 Other intervertebral disc degeneration, lumbar region (principal)
CPT/HCPCS: 80305

== ENCOUNTER → 2022-08-05 14:10 | Outpatient (CLI) | payer MEDICARE, SELFPAY ==
[2022-08-05 19:54] LABS: Amphetamine/Metha Screen,Urine Negative ng/ml (<1000); Barbiturates Screen,Urine Negative ng/ml (<200)
[2022-08-05 19:55] LABS: Benzodiazepines Screen,Urine Negative ng/ml (<200)
[2022-08-05 19:56] LABS: Cannabinoid Screen,Urine Negative ng/ml (<50); Cocaine Screen,Urine Negative ng/ml (<300)
[2022-08-05 19:57] LABS: Methadone Screen,Urine Negative ng/ml (<300); Opiate Screen,Urine Positive ng/ml (<300)
[2022-08-05 19:58] LABS: Phencyclidine Screen,Urine Negative ng/ml (<25)
== END ==
PROVIDERS: PCP Emergency Medicine; Visit Provider Emergency Medicine
DX: M51.36 Other intervertebral disc degeneration, lumbar region (principal)
CPT/HCPCS: 80305

== ENCOUNTER → 2022-09-30 14:30 | Outpatient (CLI) | payer MEDICARE, SELFPAY ==
[2022-09-30 15:23] LABS: Amphetamine/Metha Screen,Urine Negative ng/ml (<1000)
[2022-09-30 15:24] LABS: Barbiturates Screen,Urine Negative ng/ml (<200); Benzodiazepines Screen,Urine Negative ng/ml (<200)
[2022-09-30 15:25] LABS: Cannabinoid Screen,Urine Negative ng/ml (<50); Methadone Screen,Urine Negative ng/ml (<300)
[2022-09-30 15:26] LABS: Cocaine Screen,Urine Negative ng/ml (<300)
[2022-09-30 15:27] LABS: Opiate Screen,Urine Positive ng/ml (<300); Phencyclidine Screen,Urine Negative ng/ml (<25)
== END ==
PROVIDERS: PCP Emergency Medicine; Visit Provider Emergency Medicine
DX: M51.36 Other intervertebral disc degeneration, lumbar region (principal)
CPT/HCPCS: 80305

== ENCOUNTER → 2023-03-20 12:59 | Outpatient (CLI) | payer MEDICARE, SELFPAY ==
[2023-03-20 12:52] LABS: Basophils # 0.1 K/mm3 (0-0.2); Basophils % 0.7 % (0.1-2.0); Eosinophils # 0.2 K/mm3 (0.0-0.4); Eosinophils % 2.5 % (0.1-12.0); Hematocrit 47.9 % (37.0-47.0); Hemoglobin 15.4 g/dL (12.2-16.2); Lymphocytes # 3.5 K/mm3 (0.7-4.5); Lymphocytes % 49.3 % (10-50); Mean Corpuscular HGB Conc 32.1 g/dL (31.8-35.4); Mean Corpuscular Hemoglobin 31.1 pg (27.0-31.2); Mean Corpuscular Volume 96.8 fl (81-99); Mean Platelet Volume 9.5 fl (7.4-10.4); Monocytes # 0.5 K/mm3 (0.1-1.0); Monocytes % 6.4 % (1.7-9.3); Neutrophils # 2.9 K/mm3 (1.8-7.8); Platelet Count 196 K/mm3 (142-424); Red Blood Count 4.95 M/mm3 (4.20-5.40); Red Cell Distribution Width 12.3 % (11.5-17.5); White Blood Count 7.2 K/mm3 (4.8-10.8)
[2023-03-20 13:01] LABS: Alanine Aminotransferase 11 U/L (12-78); Albumin Level 4.2 g/dl (3.5-5.0); Albumin/Globulin Ratio 1.6 (1.1-1.8); Alkaline Phosphatase 63 U/L (38-126); Anion Gap 11.5 mEq/L (5-15); Aspartate Amino Transferase 22 U/L (14-36); Bilirubin,Total 0.4 mg/dl (0.2-1.3); Blood Urea Nitrogen 7 mg/dl (7-17); Calcium 9.2 mg/dl (8.4-10.2); Carbon Dioxide 31 mmol/L (22.0-30.0); Chloride 101 mmol/L (98-107); Cholesterol 156 mg/dl (140-200); Estimated Glomerular Filt Rate 84 ml/min (>60); GFR (African American) 102 ML/MIN (>60); Globulin 2.7 g/dL (1.3-3.2); Glucose 84 mg/dl (74-100); HDL Cholesterol 52 mg/dl (40-60); Potassium 4.5 mmoL/L (3.5-5.1); Sodium 139 mmol/L (136-145); Total Protein,Serum 6.9 g/dl (6.3-8.2); Triglycerides 124 mg/dl (30-150); VLDL Cholesterol 25 mg/dL (0-40)
[2023-03-20 13:11] LABS: Direct LDL Cholesterol 87.34 mg/dL (100-129)
[2023-03-20 13:24] LABS: 25-OH Vitamin D, Total > 126 ng/mL (30-100)
[2023-03-20 13:32] LABS: Thyroid Stimulating Hormone 1.16 uIU/mL (0.465-4.68)
== END ==
PROVIDERS: PCP Emergency Medicine; Visit Provider Emergency Medicine
DX: E03.9 Hypothyroidism, unspecified (principal); R63.4 Abnormal weight loss; E55.9 Vitamin D deficiency, unspecified; I20.8 Other forms of angina pectoris; R53.83 Other fatigue
CPT/HCPCS: 80053; 80061; 82306; 84443; 85025

== ENCOUNTER → 2023-05-19 10:00 | Outpatient (CLI) | payer MEDICARE, SELFPAY ==
[2023-05-19 14:21] LABS: Amphetamine/Metha Screen,Urine Negative ng/ml (<1000)
[2023-05-19 14:22] LABS: Barbiturates Screen,Urine Negative ng/ml (<200)
[2023-05-19 14:23] LABS: Benzodiazepines Screen,Urine Negative ng/ml (<200); Cannabinoid Screen,Urine Negative ng/ml (<50)
[2023-05-19 14:24] LABS: Cocaine Screen,Urine Negative ng/ml (<300); Methadone Screen,Urine Negative ng/ml (<300)
[2023-05-19 14:25] LABS: Opiate Screen,Urine Positive ng/ml (<300)
[2023-05-19 14:26] LABS: Phencyclidine Screen,Urine Negative ng/ml (<25)
== END ==
PROVIDERS: PCP Emergency Medicine; Visit Provider Emergency Medicine
DX: M51.36 Other intervertebral disc degeneration, lumbar region (principal)
CPT/HCPCS: 80305

== ENCOUNTER → 2023-07-14 15:31 | Outpatient (CLI) | payer MEDICARE, SELFPAY ==
[2023-07-14 16:30] LABS: Amphetamine/Metha Screen,Urine Negative ng/ml (<1000)
[2023-07-14 16:31] LABS: Barbiturates Screen,Urine Negative ng/ml (<200)
[2023-07-14 16:32] LABS: Benzodiazepines Screen,Urine Negative ng/ml (<200); Cannabinoid Screen,Urine Negative ng/ml (<50)
[2023-07-14 16:33] LABS: Cocaine Screen,Urine Negative ng/ml (<300); Methadone Screen,Urine Negative ng/ml (<300)
[2023-07-14 16:34] LABS: Opiate Screen,Urine Positive ng/ml (<300)
[2023-07-14 16:35] LABS: Phencyclidine Screen,Urine Negative ng/ml (<25)
== END ==
PROVIDERS: PCP Emergency Medicine; Visit Provider Emergency Medicine
DX: M51.36 Other intervertebral disc degeneration, lumbar region (principal)
CPT/HCPCS: 80305

== ENCOUNTER 2023-10-12 19:22 | Outpatient (CLI) | payer MEDICARE, SELFPAY ==
[2023-10-12 18:55] LABS: Basophils % 0.4 % (0.1-2.0); Eosinophils # 0.1 K/mm3 (0.0-0.4); Eosinophils % 1.2 % (0.1-12.0); Hematocrit 47.3 % (37.0-47.0); Hemoglobin 15.5 g/dL (12.2-16.2); Lymphocytes # 2.7 K/mm3 (0.7-4.5); Lymphocytes % 39.3 % (10-50); Mean Corpuscular HGB Conc 32.8 g/dL (31.8-35.4); Mean Corpuscular Hemoglobin 32.3 pg (27.0-31.2); Mean Corpuscular Volume 98.2 fl (81-99); Mean Platelet Volume 9.7 fl (7.4-10.4); Monocytes # 0.5 K/mm3 (0.1-1.0); Monocytes % 7.4 % (1.7-9.3); Neutrophils # 3.6 K/mm3 (1.8-7.8); Neutrophils % 51.6 % (37.0-80.0); Platelet Count 168 K/mm3 (142-424); Red Blood Count 4.82 M/mm3 (4.20-5.40); Red Cell Distribution Width 12.6 % (11.5-17.5); White Blood Count 6.9 K/mm3 (4.8-10.8)
[2023-10-12 19:07] LABS: Alanine Aminotransferase 12 U/L (12-78); Albumin/Globulin Ratio 1.6 (1.1-1.8); Alkaline Phosphatase 58 U/L (38-126); Anion Gap 8.1 mEq/L (5-15); Aspartate Amino Transferase 23 U/L (14-36); Bilirubin,Total 0.5 mg/dl (0.2-1.3); Blood Urea Nitrogen 7 mg/dl (7-17); Carbon Dioxide 31 mmol/L (22.0-30.0); Chloride 105 mmol/L (98-107); Chol/HDL Ratio 4.2 (1-3.5); Cholesterol 194 mg/dl (140-200); Estimated Glomerular Filt Rate 84 ml/min (>60); GFR (African American) 102 ML/MIN (>60); Globulin 2.5 g/dL (1.3-3.2); Glucose 82 mg/dl (74-100); HDL Cholesterol 46 mg/dl (40-60); Potassium 4.1 mmoL/L (3.5-5.1); Sodium 140 mmol/L (136-145); Total Protein,Serum 6.5 g/dl (6.3-8.2); Triglycerides 190 mg/dl (30-150); VLDL Cholesterol 38 mg/dL (0-40)
[2023-10-12 19:09] LABS: Creatinine,Urine Random 158 mg/dL (Not Estab.); Microalbumin/Creatinine Ratio 13.1
[2023-10-12 19:19] LABS: Direct LDL Cholesterol 104.45 mg/dL (100-129)
[2023-10-12 19:22] LABS: 25-OH Vitamin D, Total 70.2 ng/mL (30-100)
== END 2023-10-12 23:59 ==
LOC: LAB.DROPOF 19:22
PROVIDERS: PCP Internal Medicine; Visit Provider Internal Medicine
DX: I25.10 Atherosclerotic heart disease of native coronary artery without angina pectoris (principal); R63.4 Abnormal weight loss; E07.9 Disorder of thyroid, unspecified; E55.9 Vitamin D deficiency, unspecified; Z68.1 Body mass index [BMI] 19.9 or less, adult; Z87.891 Personal history of nicotine dependence
CPT/HCPCS: 80053; 80061; 82043; 82306; 82570; 84443; 85025

== ENCOUNTER 2023-11-09 12:50 | Outpatient (CLI) | payer MEDICARE, SELFPAY ==
--- NOTE | 2023-11-09 | CA_ITS ---
APPROVED REPORT Exam: Pharmacologic Technologist: Tereza Montes De Oca, Ht: 5 ft 9 in Wt: 96 lbs BSA: 1.51 m2 HR: 79 bpm BP: 106/73 mmHg Rhythm: Normal sinus rhythm Indications: SOA, ABN EKG Medical History Medical History: Smoking Medications: Levothyroxine,,,,, Aspirin,,,,, Metoprolol,,,,, Hydrocodone,,,,, Gabapentin,,,,, Duoneb,,,,, ClonAZEPAM,,,,, Sucralfate,,,,, Vit D3,,,,, CloPIdogrel,,,,, Famotidine,,,,, Acetaminophen,,,,, Allergies: No known drug allergies Cardiac Risk Factors: Smoking Stress Test Details Test: LEXISCAN HR Resting HR: 81 bpm Max Heart Rate (APMHR): 156 bpm Max HR Achieved: 95 bpm Target HR (85% APMHR): 133 bpm % of APMHR: 61 Recovery HR: 89 bpm BP Resting BP: 106/73 mmHg Max BP: 131/83 mmHg Recovery BP: 102.0/71.0 mmHg ECG Resting ECG: Normal sinus rhythm, cannot rule out old anterior OK Stress ECG: No significant ST changes Arrhythmia: None Clinical Exercise duration: 04:01 min Highest Stage Achieved: Stress ECG Conclusion PT HAD SOA, MILD STOMACH DISCOMFORT, AND MILD HEAD DISCOMFORT NO CP NO SIGNIFICANT ST CHANGES CONCLUSION: UNREMARKABLE LEXISCAN STRESS MYOVIEW IMAGES REPORTED SEPARATELY Test Summary REST 04:36 . . 81 . 106/ 73 . . Stage 1 01:00 . . 86 . . . . Stage 2 01:00 . . 94 . 131/ 83 . . Stage 3 01:00 . . 93 . 114/ 78 . . Stage 4 01:00 . . 90 . 118/ 73 . . Stage 4 01:01 . . 91 . 118/ 73 . Stop exercise at 04:01 RECOVERY 01:00 . . 91 . 107/ 72 . . RECOVERY 02:00 . . 89 . 107/ 72 . . RECOVERY 03:00 . . 89 . 102/ 71 . . RECOVERY 03:18 . . 88 . 102/ 71 . . Electronically signed by : Bing Gaona MD 11/12/2023 01:05:49
--- NOTE | 2023-11-09 12:50 | NM_ITS ---
APPROVED REPORT Exam: Nuclear Stress Test Indication: Chest pain, SOB, High cholesterol, Tobacco use, Family history, CAD Patient Location: Outpatient Stress Tech: Tereza Montes De Oca ME Tech:Dinah NugentringtonGO RT(R)(N) Ht: 5 ft 9 in Wt: 90 lbs Bra Size: A HR: 81 bpm BP: 106/73 mmHg BSA: 1.47 m2 TID: 1.11 BMI: 13.2 History: Chest pain, SOB, High cholesterol, Tobacco use, Family history, CAD Procedure: Patient received 0.4 mg of intravenous AdenosineLexiscan, resting heart rate 81 bpm, resting blood pressure 106/73 mmHg, with Lexiscan maximum heart rate achieved was 95 bpm which is % of the maximum predicted heart rate and blood pressure was 131/83 mmHg. With Lexiscan, patient denied any complaint of chest pain. Cardiac Stress and Resting SPECT Images: Cardiac Stress and Resting SPECT images were obtained using technetium 99m Myoview 31.5 mCi stress and 10.15 mCi at rest. Resting and stress imaging in supine and prone positions demonstrate no evidence of fixed or reversible perfusion defects. Gated imaging demonstrates normal global and regional LV systolic function. LVEF is calculated at 67%. Conclusion: No evidence of fixed or reversible perfusion defects. Gated imaging demonstrates normal global and regional LV systolic function. LVEF is calculated at 67%. Electronically signed by : Bing Gaona MD 11/12/2023 01:08:03
--- NOTE | 2023-11-09 12:55 | CA_ITS ---
APPROVED REPORT EXAM: Comprehensive 2D, Doppler, and color-flow Echocardiogram Procurement Assistant: Shabana Gracia CRT Ht: 5 ft 9 in Wt: 96lbs BSA: 1.51 BP: 92/61 mmHg Indications: COPD, Shortness of Breath, CAD, SMOKER , CELIAC STENTS, CAD TDE VERY LIMITED EXAM, POOR US WINDOWS DUE TO BODY HABITUS. 2D Dimensions Left Atrium 2.09 cm LVOT 1.94 cm (M/F) 1.5-2.5 M-Mode Dimensions RVDd 2.96 cm (0.9-2.6) LVDd 2.79 cm (3.5-5.7) Ao Diam 3.53 cm (2.0-3.7) LVDs 2.00 cm (3.5-5.7) IVSd 1.36 cm (0.6-1.1) PWd 1.07 cm (0.6-1.1) EF (Teich) 56.70% FS 28.30% EDV (Teich) 29.30 mL ESV (Teich) 12.70 mL LV Diastology E Decel Time 89 (160-240 msec) E/A Ratio 1.74 Aortic Valve AoV Peak Oscar. 93.0 (50-130 cm/s) AO Peak GR. 3.50 mmHg Mitral Valve MV E Max Oscar. 35.0 (40-130 cm/s) MV A Velocity 20.0 (40-130 cm/s) E/A Ratio 1.74 MV Decel. Time 89 (160-240 ms) Tricuspid Valve TR P. Velocity 153.00 cm/s RAP Estimate 10.00 mmHg RVSP 19.30 mmHg Left Ventricle The left ventricle is normal size. The left ventricular systolic function is normal. The left ventricular ejection fraction is within the normal range. There is increased LV wall thickness. There is normal LV segmental wall motion. Diastolic function is indeterminate. LVEF is 55%. Right Ventricle The right ventricle is normal size. The right ventricular systolic function is normal. There is increased RV wall thickness. Atria The left atrium size is normal. The right atrium size is normal. There is no Doppler evidence of interatrial shunt. Aortic Valve The aortic valve is not well-visualized. Mitral Valve The mitral valve leaflets are mildly thickened. No evidence of mitral valve stenosis. There is no mitral valve regurgitation noted. Tricuspid Valve The tricuspid valve leaflets are thin and pliable. Trace tricuspid regurgitation. There is insufficient TR jet to estimate RVSP. Pulmonic Valve The pulmonic valve is not well-visualized. Great Vessels The aortic root is not well-visualized. The IVC is dilated, but collapses > 50% with respirophasic variation. RA pressure is estimated at 8 mmHg. Pericardium Trivial pericardial effusion. No clear echo indications of tamponade. Other Information Study Quality: Technically Difficult. Technically limited study due to body habitus. Conclusion Technically difficult study due to poor acoustic windows. Grossly, normal biventricular systolic function. No evidence of significant mitral or tricuspid regurgitation or stenosis. The AV and PV are not well-visualized. Trivial pericardial effusion. Electronically signed by : Bing Gaona MD 11/13/2023 12:53:56
[2023-11-09] MEDS: REGADENOSON 0.4MG/5ML SYRINGE 0.400000000000000022 MG IV (14:22)
[2023-11-09] MEDS: ISOTOPE MYOVIEW (PER STUDY) 1 DOSE IV (14:22)
[2023-11-09] MEDS: SODIUM CHLORIDE 0.9% 10ML SYR (RAD ONLY) 10 ML IV ×2 (14:22)
== END 2023-11-09 23:59 ==
LOC: RAD 12:50
PROVIDERS: PCP Internal Medicine; Visit Provider Internal Medicine
DX: R06.02 Shortness of breath (principal); R94.31 Abnormal electrocardiogram [ECG] [EKG]; R53.1 Weakness; R42 Dizziness and giddiness; I25.10 Atherosclerotic heart disease of native coronary artery without angina pectoris; I77.4 Celiac artery compression syndrome; J44.9 Chronic obstructive pulmonary disease, unspecified; Z87.891 Personal history of nicotine dependence
CPT/HCPCS: 78452; 93017; 93018; 93306; A9502; J2785

== ENCOUNTER 2023-12-26 07:38 | Outpatient (CLI) | payer MEDICARE, SELFPAY ==
--- NOTE | 2023-12-26 07:38 | CT_ITS ---
FINAL REPORT CLINICAL HISTORY: PAD/celiac artery disease and weight loss. COMPARISON: 05/12/2021 FINDINGS: Thin section axial CT images of the abdomen, pelvis and lower extremities were obtained with contrast. Multiplanar reformatted images were also obtained and reviewed. ABDOMEN AND PELVIS: There is no abdominal aortic aneurysm or dissection. There is a stent present in the proximal celiac artery, with mild stenosis at the origin of the proximal celiac artery, not significantly changed since the prior exam of 2020. There is a 7 mm noncalcified splenic artery aneurysm seen, best visualized on images #14 of series 3 and image 75 of series 601. The superior mesenteric artery is patent. There is no renal artery stenosis, with single renal arteries bilaterally. The inferior mesenteric artery is patent. There is dense calcification of the distal aorta and iliac vessels, with less than 50% stenosis of the common iliac arteries on either side. There is no significant stenosis of the left common iliac artery or external left iliac artery. The internal iliac arteries are patent. RIGHT LOWER EXTREMITY: There is no significant stenosis of the right common femoral or superficial femoral arteries. The right deep femoral artery is patent. The right popliteal artery is obscured by streak artifact from a prior total knee arthroplasty. There is three-vessel runoff to the distal lower leg. LEFT LOWER EXTREMITY: There is no significant stenosis of the left common femoral or superficial femoral arteries. The left deep femoral artery is patent. The left popliteal artery is obscured by streak artifact from a prior total knee arthroplasty. There is three-vessel runoff to the mid lower leg. OTHER FINDINGS: IMPRESSION: Stent in the proximal celiac artery remains present and appears patent, with mild stenosis of the origin of the celiac artery, stable. Dense calcification distal aorta and iliac arteries, with less than 50% stenosis of either common iliac artery in the pelvis. The popliteal arteries are not well-seen secondary to streak artifact from bilateral total knee replacements. 7 mm noncalcified splenic artery aneurysm as described above. Reviewed, Interpreted and Dictated by Pacheco Castellanos MD Transcribed by Lulu Jacinto Authenticated and [facility]
[2023-12-26 08:06] LABS: Blood Urea Nitrogen 7 mg/dl (7-17); Estimated Glomerular Filt Rate 84 ml/min (>60); GFR (African American) 102 ML/MIN (>60)
[2023-12-26] MEDS: 0.9 % SODIUM CHLORIDE 50 ML VIAL 100 ML IV (09:03)
[2023-12-26] MEDS: IOPAMIDOL-370 (76%);100ML BOTTLE 120 ML IV (09:03)
[2023-12-26] MEDS: SODIUM CHLORIDE 0.9% 10ML SYR (RAD ONLY) 10 ML IV (09:03)
== END 2023-12-26 23:59 | disposition home or self-care (01) ==
LOC: RAD 07:38
PROVIDERS: PCP Internal Medicine; Visit Provider Internal Medicine
DX: K90.0 Celiac disease (principal); R94.31 Abnormal electrocardiogram [ECG] [EKG]; I77.4 Celiac artery compression syndrome; R68.81 Early satiety; Z72.0 Tobacco use
CPT/HCPCS: 36415; 75635; 82565; 84520; Q9967

== ENCOUNTER 2024-01-25 09:01 | Outpatient (CLI) | payer MEDICARE, SELFPAY ==
--- NOTE | 2024-01-25 09:01 | XR_ITS ---
FINAL REPORT CLINICAL HISTORY: osteoporosis COMPARISON: None FINDINGS: Using L1-4, the bone mineral density of the spine is 0.867 g/cm2, corresponding to T-score of -1.6, consistent with osteopenia. Using the left hip, the bone mineral density of the femoral neck is 0.511 g/cm2, corresponding to a T-score of -3.5, consistent with osteoporosis. Using the right hip, the bone mineral density of the femoral neck is 0.647 g/cm2, corresponding to a T-score of -2.4, consistent with osteopenia. NOTE: T-score: Standard deviation compared with peak bone mass of young adult mean. *Following the recommendations of the International Society of Bone densitometry, classification of hip BMD is based on the lower of two T-scores; total hip or femoral neck. IMPRESSION: Diminished bone mineral density consistent with osteoporosis. Reviewed, Interpreted and Dictated by Pacheco Castellanos MD Transcribed by Sherly Guo Authenticated and [facility]
== END 2024-01-25 23:59 | disposition home or self-care (01) ==
LOC: RAD 09:01
PROVIDERS: PCP Internal Medicine; Visit Provider Internal Medicine
DX: M81.0 Age-related osteoporosis without current pathological fracture (principal)
CPT/HCPCS: 77080

== ENCOUNTER 2024-03-20 14:14 | Outpatient (CLI) | payer MEDICARE, SELFPAY ==
--- NOTE | 2024-03-20 14:14 | CT_ITS ---
FINAL REPORT TECHNIQUE: Thin section axial images were obtained through the lungs using a low-dose technique per lung cancer screening protocol. Reconstruction images were obtained using the axial data. Exam was performed using dose reduction technique. CLINICAL HISTORY: lung cancer screening current smoker 1ppd x 20 years COMPARISON: None FINDINGS: CTDLvol: 2.9 DLP: 107.86 Current smoker 20 pack year history Lungs: No acute pulmonary abnormality. Biapical pleural scarring is noted, with nodular soft tissue densities in the apices, stable since the prior CT of the chest from 2021. There is a new 5 mm left upper lobe nodule, best seen on image #9 of series 4. There is a subpleural nodule in the left lower lobe, 5 mm, best seen on image #72, stable since the prior CT. There is evidence of prior granulomatous disease. The small nodular opacities in the right middle lobe and lingula noted on the prior CT have resolved. No pleural fluid is present. Lymph nodes: No thoracic lymphadenopathy. Mediastinum: Heart size is normal. Prominent coronary artery calcifications are noted. Pleura/pericardium: No pleural or pericardial effusion. Other: No acute abnormality in the upper abdomen. IMPRESSION: New 5 mm left upper lobe nodule as described, with a left lower lobe nodule noted on the prior CT of March 2022 stable. Biapical pleural scarring remains present. Lung RADS: 3S, the S designation for prominent coronary artery calcifications. Recommendation: 6-month LDCT follow-up. Reviewed, Interpreted and Dictated by Ritu Pineda MD Transcribed by Lulu Jacinto Authenticated and [facility]
--- NOTE | 2024-03-20 14:14 | CT_ITS ---
FINAL REPORT TECHNIQUE: Thin section axial images were obtained from the lung apices through the upper abdomen without contrast. This study was performed with techniques to keep radiation doses as low as reasonably achievable (ALARA). Individualized dose reduction techniques using automated exposure control or adjustment of mA and/or kV according to the patient's size were employed. CLINICAL HISTORY: weight loss COMPARISON: Prior CTA of the chest 03/09/2022 FINDINGS: Large calcified mediastinal nodes are present.. No pleural or pericardial effusion. Several nodules are noted, as described on the LDCT also performed 03/20/2024. There is one new 5 mm nodule in the left upper lobe seen on image #9 of series 4. There is evidence of prior granulomatous disease. Note is made of a stent in the superior mesenteric artery. Otherwise no acute abdominal abnormality is identified.. There is no acute osseous abnormality. IMPRESSION: New small nodule in the left upper lobe, 5 mm in size, as described on the LDCT performed also on 03/20/2024. Please see LDCT dictation for more information as clinically indicated. A stent is present in the superior mesenteric artery with no acute upper abdominal abnormality visualized. Reviewed, Interpreted and Dictated by Ritu Pineda MD Transcribed by Lulu Jacinto Authenticated and . [facility]
--- NOTE | 2024-03-20 14:33 | MM_ITS ---
PROCEDURE INFORMATION: Exam: MG Bilateral Screening 3D Mammography Exam date and time: 03/20/2024 2:16 PM Age: 64 years old Clinical indication: Screening examination TECHNIQUE: Imaging protocol: Bilateral Screening tomosynthesis and 2D mammography including computer-aided detection (CAD) when performed. COMPARISON: 1. MG MM DIG SCREENING MAMM BI W/CAD 04/06/2021 10:55 AM 2. MG DIG MAMM-DX UNI-RT 02/18/2019 1:53 PM FINDINGS: MAMMOGRAPHY: Breast composition: There are scattered areas of fibroglandular density. Mass: None. Architectural distortion: None. Calcifications: No suspicious calcifications. Asymmetric density: None. Skin thickening: None. Axillary adenopathy: None. IMPRESSION: No mammographic evidence of malignancy. Annual screening is recommended unless otherwise clinically indicated. ASSESSMENT: BI-RADS Category 1: Negative
== END 2024-03-20 23:59 | disposition home or self-care (01) ==
LOC: RAD 14:14
PROVIDERS: PCP Internal Medicine; Visit Provider Internal Medicine
DX: Z12.31 Encounter for screening mammogram for malignant neoplasm of breast (principal); R63.4 Abnormal weight loss; R53.1 Weakness; R63.0 Anorexia; R53.83 Other fatigue; Z68.1 Body mass index [BMI] 19.9 or less, adult; F17.210 Nicotine dependence, cigarettes, uncomplicated
CPT/HCPCS: 71250; 71271; 77063; 77067

== ENCOUNTER 2024-07-17 14:20 | Outpatient (CLI) | payer MEDICARE, SELFPAY ==
[2024-07-17 19:31] LABS: Alanine Aminotransferase 9 U/L (12-78); Albumin Level 4.2 g/dl (3.5-5.0); Albumin/Globulin Ratio 1.8 (1.1-1.8); Alkaline Phosphatase 57 U/L (38-126); Anion Gap 12.5 mEq/L (5-15); Aspartate Amino Transferase 20 U/L (14-36); Bilirubin,Total 0.9 mg/dl (0.2-1.3); Blood Urea Nitrogen 8 mg/dl (7-17); Carbon Dioxide 28 mmol/L (22.0-30.0); Chloride 101 mmol/L (98-107); Estimated Glomerular Filt Rate 124 ml/min (>60); GFR (African American) 150 ML/MIN (>60); Globulin 2.4 g/dL (1.3-3.2); Glucose 98 mg/dl (74-100); Potassium 4.5 mmoL/L (3.5-5.1); Sodium 137 mmol/L (136-145); Total Protein,Serum 6.6 g/dl (6.3-8.2)
[2024-07-17 20:37] LABS: C-Reactive Protein 0.6 mg/L (0-4)
[2024-07-19 08:22] LABS: Prealbumin 15 mg/dL (10-36)
== END 2024-07-17 23:59 | disposition home or self-care (01) ==
LOC: LAB.DROPOF 07-18 15:52
PROVIDERS: PCP Internal Medicine; Visit Provider Internal Medicine
DX: R42 Dizziness and giddiness (principal); R53.1 Weakness; R63.4 Abnormal weight loss; R91.1 Solitary pulmonary nodule; K52.831 Collagenous colitis; M81.0 Age-related osteoporosis without current pathological fracture; E55.9 Vitamin D deficiency, unspecified; Z79.899 Other long term (current) drug therapy; E03.9 Hypothyroidism, unspecified; I77.4 Celiac artery compression syndrome; J44.9 Chronic obstructive pulmonary disease, unspecified; K55.9 Vascular disorder of intestine, unspecified; Z72.0 Tobacco use; G47.00 Insomnia, unspecified; R06.81 Apnea, not elsewhere classified; F33.2 Major depressive disorder, recurrent severe without psychotic features
CPT/HCPCS: 80053; 84134; 86140

== ENCOUNTER 2024-07-19 10:15 | Outpatient (CLI) | payer MEDICARE, SELFPAY ==
--- OUTSIDE RECORDS SUMMARY | 2024-07-19 10:19 | XMS_ITS | Data Portability ---
Author Organization [facility] & [place] [facility] Address [address] [place] [address] Care Team Providers Care Pastry Cook Helper Name Role Phone NORTH WIGGINS Primary Care Provider [phone] Assessment No assessment recorded. Plan of Treatment Reminders Order Date Submit Date Provider Last Modified By Organization Details Last Modified Time Details Appointments Establ ished Visit 15 min 2024 01:45P M Gabby diego APRN Not available Not available Not available Lab None record ed. Referral None record ed. Procedures None record ed. Surgeries None record ed. Imaging None record ed. Medication Orders Remero n 15 mg tablet 2021 022 [facility], [address] [place] [address] S, [place], [address], 06/10/2024 15:46:38 Patient TargetsNo targets recorded. Patient InstructionsNo instructions recorded. Reason for Referral None Reported. Results Created Date Observation Date Name Description Value Unit Range Abnormal Flag Note LastModifiedBy Organization Detail LastModifiedTime Result Notes None recorded. Problems Name Problem SNOMED Code Status Onset Date Resolution Date Notes Provider Name and Address Organization Details Recorded Time Diverticulosis of colon 527509166 Active 2021 Jo Ann flanagan, [place] - [facility] & [place] 2 15:08:42 Chronic obstructive pulmonary disease 19241317 Active 2021 Jo Ann flanagan [place] - [facility] & [place] 2 15:09:11 Pulmonary emphysema 02608793 Active 2021 Jo Ann flanagan [place] - [facility] & [place] 2 15:09:28 Moderate protein energy malnutrition 674634548 Active 2021 Jo Ann Fraga null, [place] - [facility] - [place] & [place] 2 15:11:01 Diarrhea 90328789 Active 2021 Jo Ann Fraga null, [place] - [facility] - [place] & [place] 2 15:12:30 Problem Notes None recorded. Medical Equipment None Reported. Allergies No known drug allergies Medications Name Sig Start Date Stop Date Status Note LastModified by Organization Details LastModified Time quetiapine 25 mg tablet 06/10 completed Not Available Not Available Not Available latanoprost 0.005 % eye drops 06/10 completed Not Available Not Available Not Available fluconazole 100 mg tablet 06/10 completed Not Available Not Available Not Available atorvastati n 40 mg tablet Take 1 tablet every day by oral route at bedtime. active Not Available Not Available No t Available megestrol 400 mg/10 mL (40 mg/mL) oral suspension active Not Available Not Available N ot Available prednisone 10 mg tablet active Not Available Not Available Not Available atorvastati n 20 mg tablet active Not Available Not Available Not Available azithromyci n 250 mg tablet 06/10 completed Not Available Not Available Not Available metoprolol succinate ER 50 mg tablet,exte nded release 24 hr 06/10 completed Not Available Not Available Not Available citalopram 10 mg tablet 06/10 completed Not Available Not Available Not Available prednisone 20 mg tablet TAKE 2 TABLETS BY MOUTH EVERY DAY FOR 5 DAYS active Not Available Not Available No t Available alendronate 70 mg tablet active Not Available Not Available Not Available clonazepam 0.5 mg tablet active Not Available Not Available Not Available clopidogrel 75 mg tablet 06/10 completed Not Available Not Available Not Available aspirin 81 mg tablet,jesus manuel yed release active Not Available Not Available Not Available doxycycline monohydrate 100 mg tablet TAKE 1 TABLET BY MOUTH TWICE A DAY FOR 7 DAYS 06/10 completed Not Available Not Available Not Available prednisone 10 mg tablets in a dose pack TAKE 6 TABLETS ON DAY 1 DIRECTED ON PACKAGE AND DECREASE BY 1 TAB EACH DAY FOR A TOTAL OF 6 DAYS 06/10 completed Not Available Not Available Not Available DuoNeb 0.5 mg-3 mg(2.5 mg base)/3 mL solution for nebulizatio n Inhale 3 mL 4 times a day by nebulizat ion route. active Not Available Not Available No t Available citalopram 20 mg tablet active Not Available Not Available Not Available famotidine 20 mg tablet 06/10 completed Not Available Not Available Not Available gabapentin 800 mg tablet active Not Available Not Available Not Available benzonatate 100 mg capsule 06/10 completed Not Available Not Available Not Available levothyroxi ne 50 mcg tablet active Not Available Not Available Not Available oseltamivir 75 mg capsule TAKE 1 CAPSULE BY MOUTH TWICE A DAY FOR FLU active Not Available Not Available No t Available lidocaine 5 % topical patch 06/10 completed Not Available Not Available Not Available promethazin e 25 mg tablet 06/10 completed Not Available Not Available Not Available olanzapine 15 mg tablet active Not Available Not Available Not Available mirtazapine 15 mg tablet Take 1 tablet every day by oral route. 06/10 completed Not Available Not Available Not Available budesonide DR - ER 3 mg capsule,del ayed,extend ed release 06/10 completed Not Available Not Available Not Available levofloxaci n 500 mg tablet 06/10 completed Not Available Not Available Not Available levofloxaci n 750 mg tablet TAKE 1 TABLET BY MOUTH EVERY DAY FOR 3 DAYS active Not Available Not Available No t Available Patagonia 7.5 mg-325 mg tablet Take 1 tablet 4 times a day by oral route. active Not Available Not Available No t Available methylpredn isolone 4 mg tablets in a dose pack 06/10 completed Not Available Not Available Not Available albuterol sulfate HFA 90 mcg/actuati on aerosol inhaler 06/10 completed Not Available Not Available Not Available fluticasone propionate 50 mcg/actuati on nasal spray,suspe nsion 06/10 completed Not Available Not Available Not Available dicyclomine 10 mg capsule 06/10 completed Not Available Not Available Not Available midodrine 10 mg tablet Take 1 tablet 3 times a day by oral route. active Not Available Not Available No t Available azithromyci n 500 mg tablet active Not Available Not Available Not Available Mucinex DM 30 mg-600 mg tablet,exte nded release 12 hr 06/10 completed Not Available Not Available Not Available levofloxaci n 750 mg by mouth once daily active Not Available Not Available No t Available cholecalcif berenice (vitamin D3) 25 mcg (1,000 unit) tablet active Not Available Not Available Not Available cholecalcif berenice (vitamin D3) 1,250 mcg (50,000 unit) capsule 06/10 completed Not Available Not Available Not Available Vitamin D3 50 mcg (2,000 unit) capsule active Not Available Not Available Not Available Stiolto Respimat 2.5 mcg-2.5 mcg/actuati on solution for inhalation active Not Available Not Available N ot Available Breztri Aerosphere 160 mcg-9mcg-4. 8mcg/actuat ion HFA aerosol inhaler 06/10 completed Not Available Not Available Not Available Vitals Date Recorded Body weight Heart rate Systolic blood pressure Diastolic blood pressure Provider Name and Address Organization Details Last Updated DateTime 06/20/2022 94871.24 g 79 /min 103 mm[Hg] 78 mm[Hg] Jo Ann GARCÍA [facility] & [place] 06/20/2022 15:50:59 Date Recorded Body weight Heart rate Systolic blood pressure Diastolic blood pressure Provider Name and Address Organization Details Last Updated DateTime 07/05/2022 98645.83 g 78 /min 179 mm[Hg] 76 mm[Hg] Jo Ann GARCÍA [facility] & [place] 07/05/2022 14:37:31 Date Recorded Body height Heart rate Oxygen saturation Oxygen saturation in Arterial blood by Pulse oximetry Body temperature Body mass index (BMI) Body weight Systolic blood pressure Diastolic blood pressure Provider Name and Address Organization Details Last Updated DateTime 4 154.94 cm 73 /min 93 % 93 % 98.4 [degF] 20.6 kg/m2 75048.5 7 g 110 mm[Hg] 60 mm[Hg] Angelica Dewey [facility] & [place] 4 09:50:02 Social History Question Answer Notes LastModified by Organizat ion Details LastModified Time Tobacco Smoking Status [facility] [place] 09/01/2022 10:25:35 What Is Your Level Of Alcohol Consumption? None [email or web address] Information not available 09/01/2022 What Is Your Current Pack Years? [id number] rs Information not available 09/01/2022 At What Age Did You Start Smoking Tobacco? 37 [email or web address] Information not available 09/01/2022 How Much Tobacco Do You Smoke? 0.5 PPD [email or web address] Information not available 09/01/2022 Do You Use Any Illicit Or Recreational Drugs? No Information not available 09/01/2022 How Many Years Have You Smoked Tobacco? 25 [email or web address] Information not available 09/01/2022 Sex: Unknown Functional Status None recorded. Mental Status None recorded. Family History Nothing Reported. Medical History Condition Response COPD Y Gynecological HistoryNo gynecological history recorded. Obstetrics History GPAL:G 0 P 0 0 0 0 Immunizations Vaccine Type Date Status Provider Name and Address Organization Details Recorded Time COVID-19, mRNA, LNP-S, PF, 100 mcg/0.5mL dose or 50 mcg/0.25mL dose 01/22/2021 completed Angelica Dewey null, [place] - [facility] - [place] & [place] 06/11/2024 09:50:23 COVID-19, mRNA, LNP-S, PF, 100 mcg/0.5mL dose or 50 mcg/0.25mL dose 02/22/2021 completed Angelica Dewey null, [place] - [facility] - [place] & [place] 06/11/2024 09:50:23 COVID-19, mRNA, LNP-S, PF, 100 mcg/0.5mL dose or 50 mcg/0.25mL dose 09/03/2021 completed Angelica flanagan, [place] - [facility] - [place] & [place] 06/11/2024 09:50:23 pneumococcal polysaccharide PPV23 08/03/2021 completed Angelica Dewey null, [place] - [facility] - [place] & [place] 06/11/2024 09:50:23 Pneumococcal conjugate PCV 13 04/14/2016 completed Angelica flanagan, [place] - [facility] - [place] & [place] 06/11/2024 09:50:23 Influenza, split virus, trivalent, PF 04/14/2016 completed Angelica flanagan, [place] - [facility] - [place] & [place] 06/11/2024 09:50:23 Influenza, split virus, trivalent, PF 06/06/2018 completed Angelicaluis [place] null, [place] - [facility] & [place] 06/11/2024 09:50:23 Influenza, split virus, quadrivalent, PF 06/04/2019 completed Angelica Dewey null, [place] - [facility] & [place] 06/11/2024 09:50:23 Influenza, split virus, quadrivalent, PF 06/06/2017 completed Angelica Dewey null[place] - [facility] - [place] & [place] 06/11/2024 09:50:23 Influenza, split virus, quadrivalent, PF 06/06/2018 completed Angelica Dewey null, [place] - [facility] & [place] 06/11/2024 09:50:23 Influenza, split virus, quadrivalent, PF 06/17/2020 completed Angelica Dewey null[place] - [facility] & [place] 06/11/2024 09:50:23 Influenza, split virus, quadrivalent, PF 08/03/2021 completed Angelica Dewey null, [place] - [facility] & [place] 06/11/2024 09:50:23 Past Encounters Encounter ID Performer Location Encounter Start Date Encounter Closed Date Diagnosis/Indication Diagnosis SNOMED-CT Code Diagnosis ICD10 Code [id number] Lily Alvarenga NP [facility] [address] [address] 06/20/2022 15:43:28 06/20/2022 16:18:19 Cachexia 056124331 R64 Heartburn 99483638 R12 Hematochezia 236453773 K 92.1 [id number] Lily Alvarenga NP [facility] [address] [address] 07/05/2022 14:23:44 07/05/2022 15:09:58 Cachexia 835843593 R64 Heartburn 24096633 R12 Hematochezia 636672612 K 92.1 Decrease in appetite 643 36027 R63.0 Anxiety 34865428 F41.9 Depressive disorder 3548 9007 F32.A [id number] Forrest Wing MD [facility] Infectiou s Disease -[address] [place] [address] 06/11/2024 09:36:25 06/11/2024 10:03:08 Community acquired pneumonia 403881985 J18.9 Health Concerns Section Related Observation LastModified by Organization Detai ls LastModified Time None Recorded Concern Status LastModified by Organization Details LastModified Time None Recorded Advance Directives Directive None Recorded Payers Encounter Date Sequence Insurance Name Policy Number Policy Trinh Covered Member ID Trinh Member ID Guarantor Name 06/20/2022 1 [employer] (MEDICARE REPLACEMENT/A DVANTAGE - HMO) Monica Gans [id number] Monica Munoz 07/05/2022 1 [employer] (MEDICARE REPLACEMENT/A DVANTAGE - HMO) Monica Gans [id number] Monica Munoz 06/11/2024 1 [employer] (MEDICARE REPLACEMENT/A DVANTAGE - HMO) Monica Gans [id number] Monica Munoz Notes Date Note Type Note Provider Name and Address Organization Details Recorded Time 06/20/2022 text/html PREVIOUS Patient is a 62-year-old female here today to establish care. Reports her last colonoscopy was in 2020 at [facility]. Reports she was diagnosed with Crohn's disease in [place] years ago, but has never been treated for it. Also has history of recent admission related to pneumonia has a history of COPD. Reports heartburn and intermittent dysphagia. Reports bloody diarrhea and intermittent lower abdominal. Patient is very thin and underweight.CURRENT (06/25) patient is here today for follow-up. Reports diarrhea has improved denies mucus here bloody stool. Denies abdominal pain. Reports she has gained approximately 12 lb in the past 3 months and is taking ensures drinks 4 times per day. denies nausea, vomiting or hematemesis. Denies constipation, diarrhea or hematochezia. Empiric dilation performed during recent EGD. Patient states dysphagia has completely resolved. Lily Alvarenga, [place] [address], [place], [address], [facility] - NT - [place] & [place] 06/20/2022 16:30:22 07/05/2022 text/html PREVIOUS Patient is a 62-year-old female here today to establish care. Reports her last colonoscopy was in 2020 at [facility]. Reports she was diagnosed with Crohn's disease in [place] years ago, but has never been treated for it. Also has history of recent admission related to pneumonia has a history of COPD. Reports heartburn and intermittent dysphagia. Reports bloody diarrhea and intermittent lower abdominal. Patient is very thin and underweight. (06/25) patient is here today for follow-up. Reports diarrhea has improved denies mucus here bloody stool. Denies abdominal pain. Reports she has gained approximately 12 lb in the past 3 months and is taking ensures drinks 4 times per day. denies nausea, vomiting or hematemesis. Denies constipation, diarrhea or hematochezia. Empiric dilation performed during recent EGD. Patient states dysphagia has completely resolved. (07/05/22) Patient is here today with sister for follow-up. We still do not have records obtained from [facility] or [facility]. Patient has gained 1 lb since last office visit. Reports she still struggles with insomnia, depression, anxiety and lack of appetite and denies suicidal or homicidal ideations. Reports multiple family members are addicted to heroin and she struggles with all of the stress. Denies nausea, vomiting or hematemesis. Denies diarrhea, constipation or hematochezia at this time. Patient has gained 1 lb since last office visit. Lily Alvarenga, [address] [facility], [place], [address], [facility] - [facility] - [place] & [place] 07/05/2022 15:42:40 06/11/2024 text/html This is a 64-year-old white female with advanced COPD following up with pr for a severe episode of community-acquired pneumonia. This was post viral in nature. The exact bacterial pathogen was never ascertained. She was treated with several days of ceftriaxone azithromycin then transitioned to levofloxacin upon discharge to complete a 7 day course of antibiotics. During her hospitalization, no obvious complication of the pneumonia was noted, such as a major parapneumonic effusion or lung abscess. She states she is doing well today. She has no residual shortness of breath beyond her baseline. She still has some cough with sputum production. No fever. She is on room air. Overall, she feels much better. Forrest Wing MD [address], [place], [address], [facility] - [facility] - [place] & [place] 06/11/2024 10:00:12 OBGyn Episode No OBEpisode recorded.
--- OUTSIDE RECORDS SUMMARY | 2024-07-19 10:19 | XMS_ITS | Continuity of Care Document ---
Author Organization [facility] & [facility] Infectious Disease -[address] Address [address] [facility] [address] [place] [address] Care Team Providers Care Gate Guard Name Role Phone ROSALIENORTH MILLER Primary Care Provider [phone] Assessment No assessment recorded. Plan of Treatment Reminders Order Date Submit Date Provider Last Modified By Organization Details Last Modified Time Details Appointments Establish ed Visit 15 min 2024 01:45P M Gabby diego APRN Not available Not available Not available Lab None recorded. Referral None recorded. Procedures None recorded. Surgeries None recorded. Imaging None recorded. Medication Orders None recorded. Patient TargetsNo targets recorded. Patient InstructionsNo instructions recorded. Reason for Referral None Reported. Problems Name Problem SNOMED Code Status Onset Date Resolution Date Notes Provider Name and Address Organization Details Recorded Time Diverticulosis of colon 393013328 Active 2021 Jo Ann Flakito flanagan RICK[facility] & [place] 2 15:08:42 Chronic obstructive pulmonary disease 00972663 Active 2021 Jo Ann flanagan RICK[facility] & [place] 2 15:09:11 Pulmonary emphysema 54365244 Active 2021 Jo Ann flanagan RICKY ROSSI [facility] & [place] 2 15:09:28 Moderate protein energy malnutrition 689504637 Active 2021 Jo Ann flanagan [place] ROSSI [facility] & [place] 2 15:11:01 Diarrhea 60280752 Active 2021 Jo Ann flanagan [place] ROSSI [facility] & [place] 2 15:12:30 Problem Notes None recorded. Medical [...] Not Available Not Available No t Available Hanson 7.5 mg-325 mg tablet Take 1 tablet [...] Available Not Available Vitals Date Recorded Body height Heart rate Oxygen saturation Oxygen saturation in Arterial blood by Pulse oximetry Body temperature Body mass index (BMI) Body weight Systolic blood pressure Diastolic blood pressure Provider Name and Address Organization Details Last Updated DateTime 4 154.94 cm 73 /min 93 % 93 % 98.4 [degF] 20.6 kg/m2 80833.5 7 g 110 mm[Hg] 60 mm[Hg] Angelica GARCÍA [facility] & [place] 4 09:50:02 Social History Question Answer Notes LastModified by Organizat ion Details LastModified Time Tobacco Smoking Status Current Every Day Smoker Yuli flanagan [facility] & [place] 09/01/2022 10:25:35 What Is Your Level Of Alcohol Consumption? None [email or web address] Information not available 09/01/2022 What Is Your Current Pack Years? 20-29packyea rs Information not available 09/01/2022 At What Age Did You Start Smoking Tobacco? 37 [email or web address] Information not available 09/01/2022 How Much Tobacco Do You Smoke? 0.5 PPD [email or web address] Information not available 09/01/2022 Do You Use Any Illicit Or Recreational Drugs? No [email or web address] Information not available 09/01/2022 How Many Years Have You Smoked Tobacco? 25 [email or web address] Information not available 09/01/2022 Sex: Unknown Functional [...] dose or 50 mcg/0.25mL dose 01/22/2021 completed RICKY Chung BRANDY [facility] & [place] 06/11/2024 09:50:23 COVID-19, mRNA, LNP-S, PF, 100 mcg/0.5mL dose or 50 mcg/0.25mL dose 02/22/2021 completed Angelica Dewey null, [place] - [facility] - [place] & [place] 06/11/2024 09:50:23 COVID-19, mRNA, LNP-S, PF, 100 mcg/0.5mL dose or 50 mcg/0.25mL dose 09/03/2021 completed Angelica Dewey null, [place] - [facility] - [place] & [place] 06/11/2024 09:50:23 pneumococcal polysaccharide PPV23 08/03/2021 completed Angelica Dewey null, [place] - [facility] - [place] & [place] 06/11/2024 09:50:23 Pneumococcal conjugate PCV 13 04/14/2016 completed Angelica Dewey null, [place] - [facility] - [place] & [place] 06/11/2024 09:50:23 Influenza, split virus, trivalent, PF 04/14/2016 completed Angelica Dewey null[place] - [facility] - [place] & [place] 06/11/2024 09:50:23 Influenza, split virus, trivalent, PF 06/06/2018 completed Angelica Dewey null[place] - [facility] - [place] & [place] 06/11/2024 09:50:23 Influenza, split virus, quadrivalent, PF 06/04/2019 completed Angelica Dewey null[place] [facility] - [place] & [place] 06/11/2024 09:50:23 Influenza, split virus, quadrivalent, PF 06/06/2017 completed Angelica Dewey null[place] - [facility] - [place] & [place] 06/11/2024 09:50:23 Influenza, split virus, quadrivalent, PF 06/06/2018 completed Angelica Dewey null[place] - [facility] - [place] & [place] 06/11/2024 09:50:23 Influenza, split virus, quadrivalent, PF 06/17/2020 completed Angelica Dewey null, [place] - [facility] - [place] & [place] 06/11/2024 09:50:23 Influenza, split virus, quadrivalent, PF 08/03/2021 completed Angelica Dewey [facility], [facility] & [place] 06/11/2024 09:50:23 Past Encounters Encounter ID Performer Location Encounter Start Date Encounter Closed Date Diagnosis/Indication Diagnosis SNOMED-CT Code Diagnosis ICD10 Code [id number] Forrest Wing MD [facility] Infectiou s Disease -[address] [place] [address] 06/11/2024 09:36:25 06/11/2024 10:03:08 Community acquired pneumonia 115419525 J18.9 Health Concerns Section Related Observation LastModified by Organization Detai ls LastModified Time None Recorded Concern Status LastModified by Organization Details LastModified Time None Recorded Payers Encounter Date Sequence Insurance Name Policy Number Policy Trinh Covered Member ID Trinh Member ID Guarantor Name 06/11/2024 1 [employer] (MEDICARE REPLACEMENT/A DVANTAGE - HMO) Monica Munoz [id number] Monica Munoz Notes Date Note Type Note Provider Name and Address Organization Details Recorded Time 06/11/2024 text/html This is a 64-year-old white female with advanced COPD following up with de for a severe episode of community-acquired pneumonia. [...] she feels much better. Forrest Wing MD [address], [place], [address], [facility] & [place] 06/11/2024 10:00:12 OBGyn Episode No OBEpisode recorded.
[2024-07-19 11:21] LABS: Erythrocyte Sedimentation Rate 8 mm/hr (0-30)
== END 2024-07-19 23:59 | disposition home or self-care (01) ==
LOC: LAB 10:16
PROVIDERS: PCP Internal Medicine; Visit Provider Internal Medicine
DX: R42 Dizziness and giddiness (principal); R53.1 Weakness; R63.4 Abnormal weight loss
CPT/HCPCS: 36415; 85651

== ENCOUNTER 2024-08-14 14:30 | Outpatient (CLI) | payer MEDICARE, SELFPAY ==
[2024-08-14 20:39] LABS: Creatinine,Urine Random 209 mg/dL (Not Estab.)
[2024-08-14 21:08] LABS: Microalbumin/Creatinine Ratio 38.4
== END 2024-08-14 23:59 | disposition home or self-care (01) ==
LOC: LAB.DROPOF 08-15 10:30
PROVIDERS: PCP Internal Medicine; Visit Provider Internal Medicine
DX: E86.0 Dehydration (principal)
CPT/HCPCS: 82043; 82570

== ENCOUNTER 2024-10-31 10:50 | Outpatient (CLI) | payer MEDICARE, SELFPAY ==
--- NOTE | 2024-10-31 10:51 | CT_ITS ---
FINAL REPORT TECHNIQUE: Axial images were obtained from the lung apex to the mid abdomen by computed tomography. This study was performed with techniques to keep radiation doses as low as reasonably achievable (ALARA). Individualized dose reduction techniques using automated exposure control or adjustment of mA and/or kV according to the patient's size were employed. CLINICAL HISTORY: lung cancer screening. pt is currently a smoker and smokes 1/2 pack a day. pt has been a smoker for 30 years. pt has COPD. COMPARISON: 03/20/2024 FINDINGS: CHEST CT LOW DOSE CTDI vol (mGy): 2.90 DLP (mGy-cm): 115.68 There is no axillary adenopathy. There is no hilar or mediastinal adenopathy. The heart is normal in size. There is no pericardial or pleural effusion. There are peripheral opacities throughout the lungs, similar to prior, most likely related to postinflammatory changes. Peripheral opacity in the right lower lobe on image 33 of series 3 measures up to 10 mm consistent with nodular scarring. Finding is unchanged from prior. Other smaller nodular densities are stable. No acute densities identified. Limited images of the upper abdomen are unremarkable. IMPRESSION: No evidence of primary lung neoplasm. Lung RADS category 2. Recommend 12 month follow-up low-dose chest CT. Reviewed, Interpreted and Dictated by Ruben Lamar MD Transcribed by Tiffany Alonzo Authenticated and [facility]
== END 2024-10-31 23:59 | disposition home or self-care (01) ==
LOC: RAD 10:51
PROVIDERS: PCP Internal Medicine; Visit Provider Internal Medicine
DX: R91.1 Solitary pulmonary nodule (principal); F17.210 Nicotine dependence, cigarettes, uncomplicated; J44.9 Chronic obstructive pulmonary disease, unspecified
CPT/HCPCS: 71271

== ENCOUNTER 2024-12-02 12:47 | Outpatient (CLI) | payer MEDICARE, SELFPAY ==
[2024-12-02 12:52] LABS: Adenovirus F 40/41, stool Not Detected (NotDetected); Astrovirus Not Detected (NotDetected); Campylobacter Not Detected (NotDetected); Clostridium Difficile A/B, PCR Not Detected (NotDetected); Cryptosporidium Not Detected (NotDetected); Cyclospora Cayetanesis Not Detected (NotDetected); Entamoeba histolytica Not Detected (NotDetected); Enteroaggregative E coli Not Detected (NotDetected); Enteropathogenic E coli Not Detected (NotDetected); Enterotoxigenic E coli Not Detected (NotDetected); Giardia lamblia Not Detected (NotDetected); Norovirus Not Detected (NotDetected); Plesimonas Shigalloides, PCR Not Detected (NotDetected); Rotavirus A Not Detected (NotDetected); Salmonella, PCR Not Detected (NotDetected); Sapovirus Not Detected (NotDetected); Shiga-like toxin E coli Not Detected (NotDetected); Shigella Enterovasive E coli Not Detected (NotDetected); Vibrio Cholerae Not Detected (NotDetected); Vibrio, PCR Not Detected (NotDetected); Yersinia Entercolitica, PCR Not Detected (NotDetected)
[2024-12-04 15:14] LABS: Calprotectin, Fecal 83 ug/g (0-120); Pancreatic Elastase, Fecal 434 (>200)
== END 2024-12-02 23:59 | disposition home or self-care (01) ==
LOC: LAB 12:47
PROVIDERS: PCP Family Medicine; Visit Provider Nurse Practitioner Family
DX: R19.7 Diarrhea, unspecified (principal)
CPT/HCPCS: 82656; 83993; 87506

== ENCOUNTER 2024-12-09 14:12 | Outpatient (CLI) | payer MEDICARE, SELFPAY ==
[2024-12-09 17:35] LABS: Basophils % 0.4 % (0.1-2.0); Eosinophils # 0.1 K/mm3 (0.0-0.4); Eosinophils % 0.7 % (0.1-12.0); Hematocrit 45.1 % (37.0-47.0); Hemoglobin 14.3 g/dL (12.2-16.2); Lymphocytes # 2.2 K/mm3 (0.7-4.5); Lymphocytes % 23.7 % (10-50); Mean Corpuscular HGB Conc 31.7 g/dL (31.8-35.4); Mean Corpuscular Hemoglobin 31.4 pg (27.0-31.2); Mean Corpuscular Volume 99.1 fl (81-99); Monocytes # 0.6 K/mm3 (0.1-1.0); Monocytes % 6.4 % (1.7-9.3); Neutrophils # 6.4 K/mm3 (1.8-7.8); Neutrophils % 68.6 % (37.0-80.0); Platelet Count 205 K/mm3 (142-424); Red Blood Count 4.55 M/mm3 (4.20-5.40); Red Cell Distribution Width 12.8 % (11.5-17.5); White Blood Count 9.4 K/mm3 (4.8-10.8)
[2024-12-09 18:26] LABS: Alanine Aminotransferase 9 U/L (12-78); Albumin Level 3.9 g/dl (3.5-5.0); Albumin/Globulin Ratio 1.5 (1.1-1.8); Alkaline Phosphatase 56 U/L (38-126); Anion Gap 9.5 mEq/L (5-15); Aspartate Amino Transferase 17 U/L (14-36); Bilirubin,Total 0.6 mg/dl (0.2-1.3); Blood Urea Nitrogen 10 mg/dl (7-17); Calcium 9.3 mg/dl (8.4-10.2); Carbon Dioxide 34 mmol/L (22.0-30.0); Chloride 100 mmol/L (98-107); Chol/HDL Ratio 1.9 (1-3.5); Cholesterol 119 mg/dl (140-200); Estimated Glomerular Filt Rate 100 ml/min (>60); GFR (African American) 121 ML/MIN (>60); Globulin 2.6 g/dL (1.3-3.2); Glucose 96 mg/dl (74-100); HDL Cholesterol 63 mg/dl (40-60); Potassium 5.5 mmoL/L (3.5-5.1); Sodium 138 mmol/L (136-145); Total Protein,Serum 6.5 g/dl (6.3-8.2); Triglycerides 50 mg/dl (30-150); VLDL Cholesterol 10 mg/dL (0-40)
[2024-12-09 18:47] LABS: Direct LDL Cholesterol 41.14 mg/dL (100-129)
[2024-12-09 18:57] LABS: Thyroid Stimulating Hormone 1.54 uIU/mL (0.465-4.68)
== END 2024-12-09 23:59 | disposition home or self-care (01) ==
LOC: LAB.DROPOF 12-10 14:44
PROVIDERS: PCP Family Medicine; Visit Provider Family Medicine
DX: I25.118 Atherosclerotic heart disease of native coronary artery with other forms of angina pectoris (principal); E03.9 Hypothyroidism, unspecified; K52.831 Collagenous colitis
CPT/HCPCS: 80053; 80061; 84443; 85025

== ENCOUNTER 2024-12-11 10:23 | Outpatient (CLI) | payer MEDICARE, SELFPAY ==
[2024-12-11 11:14] LABS: Anion Gap 11.1 mEq/L (5-15); Blood Urea Nitrogen 9 mg/dl (7-17); Calcium 8.7 mg/dl (8.4-10.2); Carbon Dioxide 35 mmol/L (22.0-30.0); Chloride 97 mmol/L (98-107); Estimated Glomerular Filt Rate 84 ml/min (>60); GFR (African American) 102 ML/MIN (>60); Glucose 104 mg/dl (74-100); Potassium 5.1 mmoL/L (3.5-5.1); Sodium 138 mmol/L (136-145)
== END 2024-12-11 23:59 | disposition home or self-care (01) ==
LOC: LAB 10:24
PROVIDERS: PCP Family Medicine; Visit Provider Family Medicine
DX: E87.5 Hyperkalemia (principal)
CPT/HCPCS: 36415; 80048

== ENCOUNTER 2025-01-20 15:58 | Outpatient (CLI) | payer MEDICARE, SELFPAY ==
[2025-01-20 20:46] LABS: Chloride 101 mmol/L (98-107)
[2025-01-20 20:47] LABS: Potassium 5.4 mmoL/L (3.5-5.1); Sodium 139 mmol/L (136-145)
[2025-01-20 20:49] LABS: Blood Urea Nitrogen 8 mg/dl (7-17); Estimated Glomerular Filt Rate 124 ml/min (>60); GFR (African American) 150 ML/MIN (>60)
[2025-01-20 20:50] LABS: Anion Gap 12.4 mEq/L (5-15); Calcium 9.3 mg/dl (8.4-10.2); Carbon Dioxide 31 mmol/L (22.0-30.0); Glucose 111 mg/dl (74-100)
== END 2025-01-20 23:59 | disposition home or self-care (01) ==
LOC: LAB.DROPOF 20:31
PROVIDERS: PCP Family Medicine; Visit Provider Family Medicine
DX: E87.6 Hypokalemia (principal)
CPT/HCPCS: 80048

== ENCOUNTER 2025-04-07 16:45 | Outpatient (CLI) | payer MEDICARE, SELFPAY ==
[2025-04-07 19:22] LABS: Hematocrit 50.6 % (37.0-47.0); Hemoglobin 16.2 g/dL (12.2-16.2); Immature Granulocytes % 0.2 %; Mean Corpuscular HGB Conc 32.0 g/dL (31.8-35.4); Mean Corpuscular Hemoglobin 30.9 pg (27.0-31.2); Mean Corpuscular Volume 96.6 fl (81-99); Nucleated Red Blood Cells % 0 %; Platelet Count 161 K/mm3 (142-424); Red Blood Count 5.24 M/mm3 (4.20-5.40); Red Cell Distribution Width-SD 44.3 fL; White Blood Count 8.7 K/mm3 (4.8-10.8)
[2025-04-07 20:04] LABS: Alanine Aminotransferase 11 U/L (12-78); Albumin Level 4.6 g/dl (3.5-5.0); Albumin/Globulin Ratio 1.7 (1.1-1.8); Alkaline Phosphatase 73 U/L (38-126); Anion Gap 16.6 mEq/L (5-15); Aspartate Amino Transferase 27 U/L (14-36); Bilirubin,Total 0.8 mg/dl (0.2-1.3); Blood Urea Nitrogen 13 mg/dl (7-17); Calcium 9.7 mg/dl (8.4-10.2); Carbon Dioxide 21 mmol/L (22.0-30.0); Chloride 102 mmol/L (98-107); Creatinine,Serum 0.60 mg/dl (0.52-1.04); Estimated Glomerular Filt Rate 100 ml/min (>60); GFR (African American) 121 ML/MIN (>60); Globulin 2.7 g/dL (1.3-3.2); Glucose 98 mg/dl (74-100); Potassium 4.6 mmoL/L (3.5-5.1); Sodium 135 mmol/L (136-145); Total Protein,Serum 7.3 g/dl (6.3-8.2)
[2025-04-07 20:31] LABS: Thyroid Stimulating Hormone 3.53 uIU/mL (0.465-4.68)
--- OUTSIDE RECORDS SUMMARY | 2025-04-08 11:14 | XMS_ITS | Patient Health Record ---
Author Organization [facility] Address [address] [place] [address] [address] [place] [address] Care Team Providers Care Assistant Hall Director Name Role Phone Neri MORELAND -PCP, Tono Primary Care Provider Un available Reason For Referral No Information Medications Medication SIG (Take, Route, Frequency, Duration) Notes Start Date End Date Status [place] 325 mg-7.5 mg 1 tab(s) orally 3 times a day; Duration: 30 days Active gabapentin 600 mg 1 tab(s) orally 3 times a day; Duration: 30 day(s) DO NOT FILL ANY SOONER THAN EVERY 30 DAYS, (OK TO FILL EARLY IF CLOSED) Active [place] 325 mg-7.5 mg 1 tab(s) orally ever y 8 hours; Duration: 30 days DO NOT FILL ANY SOONER THAN EVERY 30 DAYS, (OK TO FILL EARLY IF CLOSED) , SEPTEMBER 2020 RX Active Acetaminophen-Hydroc odone Bitartrate 325 mg-7.5 mg 1 tab(s) orally every 8 hours; Duration: 30 days DO NOT FILL ANY SOONER THAN EVERY 30 DAYS, (OK TO FILL EARLY IF CLOSED) AUGUST 2020 RX Active Voltaren Topical 1% as directed transdermal apply 2-3 times per day to affected area; Duration: 30 day(s) Active gabapentin 800 mg 1 tab(s) orally 4 times a day; Duration: 30 day(s) Active Social History Alcohol Screen Question Answer Notes Did you have a drink containing alcohol in the p ast year? No Points 0 Interpretation Negative Problems Problem Type SNOMED Code ICD Code Onset Dates Problem Status W/U Status Risk Notes Problem Degeneration of lumbar intervertebral disc (74805209) Other intervertebral disc degeneration, lumbar region (M51.36) Active confirmed Problem Low back pain (179384365) Low back pain (M54.5) Active confirmed Problem Other detention (current) drug therapy (Z79.899) Active confirmed Plan Of Treatment Pending Test Test Name Order Date Urine Test ANALYZER 12/23/2019 Insurance Providers Payer Name Payer Address Payer Phone Subscriber Number Group Number Insured Name Patient Relationship to Insured Coverage Start Date Coverage End Date [employer] [id number] [address] [address] [place] [address] [phone] [id number] Monica Munoz Self - patient is the insured 9 Medical (General) History Medical History History ICD Code Anxiety [address] Tono watts Depression [address] Tono bui COPD [address] Tono He Emphysema [address] Carmenza bui Surgical History Surgery Date(Month/Year) section [facility] 7 da y stay Hysterectomy [facility] night stay 1999 [place] Knee replacement [facility] 3 night stay section [facility] 4 ni ght stay 1981 Hospitalization History Reason Date(Month/Year)
--- OUTSIDE RECORDS SUMMARY | 2025-04-08 11:14 | XMS_ITS | Patient Health Record ---
Author Organization [id number] [facility] Address [address] [facility] [address] [place], [place] [id number] Care Team Providers Care Agency Service Coordinator Name Role Phone ALESHA Rice Unavailable [phone] Reason For Referral No Information Plan Of Treatment No Information Insurance Providers Payer Name Payer Address Payer Phone Subscriber Number Group Number Insured Name Patient Relationship to Insured Coverage Start Date Coverage End Date MEDICARE [place] PART B [address] [place], [place] [id number] Monica Munoz Self - patient is the insured 9 1
== END 2025-04-07 23:59 | disposition home or self-care (01) ==
LOC: LAB.DROPOF 04-08 11:10
PROVIDERS: PCP Family Medicine; Visit Provider Family Medicine
DX: E03.9 Hypothyroidism, unspecified (principal); R63.4 Abnormal weight loss
CPT/HCPCS: 80053; 84443; 85025